=== PATIENT | female | born 1965 | race Caucasian/White ===

== ENCOUNTER → 2019-05-27 | Outpatient (CLI) | payer BC ==
--- NOTE | 2019-05-27 16:58 | Diagnostic Imaging Report ---
INDICATION: Chronic back pain. COMPARISON: Cervical spine MRI performed concurrently. TECHNIQUE: Multiplanar, multisequence MR imaging of the thoracic spine was performed without contrast. FINDINGS: Normal kyphosis of the thoracic spine. No spondylolisthesis. No fracture or marrow replacing process. No features of active facet synovitis. No epidural mass or fluid collection. Thoracic cord is normal in size and signal. Paravertebral musculature is normal. Visualized aspects of the upper abdomen and lungs are normal. IMPRESSION: Normal thoracic spine MRI. Dictated by: Dictated on workstation # [id number]
== END ==
LOC: RAD 13:56
PROVIDERS: ATTEND Nurse Practitioner Family
DX: G89.29 Other chronic pain (principal); M54.6 Pain in thoracic spine
CPT/HCPCS: 72146

== ENCOUNTER → 2019-05-27 | Outpatient (CLI) | payer BC ==
--- NOTE | 2019-05-27 15:57 | Diagnostic Imaging Report ---
PROCEDURE: MR imaging cervical spine without contrast. TECHNIQUE: Multiplanar, multisequence MR imaging of the cervical spine was performed without contrast. INDICATION: Chronic neck pain and mid spine pain. COMPARISON: No prior studies are available for comparison. FINDINGS: The curvature and alignment of the cervical spine is normal. Vertebral body marrow signal is normal. No geographic marrow lesion is seen. There is fairly normal height and signal intensity to the cervical intervertebral disc. Cervical cord does show normal homogeneous signal intensity and normal morphology. There does appear to be some cerebellar tonsillar ectopia present at the craniocervical junction. C2-3: Central canal and neural foramina are widely patent. C3-4: There appears to be some mild right neural foramina narrowing. Central canal and left neural foramen are patent. C4-5: No central canal or neural foraminal narrowing is seen. C5-6: No central canal or neural foraminal narrowing is seen. C6-7: No central canal or neural foraminal narrowing is seen. C7-T1: Unremarkable. IMPRESSION: 1. No central canal or neural foraminal stenosis is seen. 2. Cerebellar tonsillar ectopia. Dictated by: Dictated on workstation # [id number]
== END ==
LOC: RAD 13:45
PROVIDERS: ATTEND Nurse Practitioner Family
DX: G89.29 Other chronic pain (principal); M54.2 Cervicalgia; G93.89 Other specified disorders of brain
CPT/HCPCS: 72141

== ENCOUNTER → 2019-09-17 | Outpatient (CLI) | payer BC ==
--- NOTE | 2019-09-17 10:39 | Diagnostic Imaging Report ---
MRI RT LOWER EXT JOINT W/O TECHNIQUE: Multiplanar, multisequence MR imaging of the right knee was performed without contrast. COMPARISON: None available. INDICATION: Right knee pain. FINDINGS: MENISCI Medial meniscus: Complex macerated tearing throughout the body and posterior horn of the medial meniscus predominantly involves the free edge. The body of the medial meniscus is partially extruded in the medial gutter. Lateral meniscus: Normal. LIGAMENTS ACL: Intact. PCL: Intact. MCL: Intact. LCL: The lateral collateral ligamentous complex is intact. EXTENSOR MECHANISM The extensor mechanism is intact. CARTILAGE Medial compartment: Diffuse full-thickness articular cartilage loss throughout the weightbearing aspect of the medial compartment. Underlying subcortical cystic change and sclerosis is present indicative of grade IV chondromalacia. Lateral compartment: The lateral compartment articular cartilage is preserved without high-grade chondromalacia. Patellofemoral compartment: High-grade partial and full-thickness articular cartilage loss at the patellar apex and medial patellar facet. BONE No fracture, stress fracture or osteonecrosis. SOFT TISSUE No knee joint effusion. Moderate-sized Wiley's cyst measures approximately 5.5 cm in craniocaudal dimension and has no features of rupture. IMPRESSION: 1. Tricompartmental knee osteoarthritis is most advanced in the medial compartment as there is a broad area of full-thickness articular cartilage loss throughout the weightbearing aspect. 2. There is associated degenerative macerated tearing of the body and posterior horn of the medial meniscus. 3. Moderate size Wiley's cyst. Dictated by: Dictated on workstation # [id number]
== END ==
LOC: RAD 09:18
PROVIDERS: ATTEND Nurse Practitioner
DX: M23.221 Derangement of posterior horn of medial meniscus due to old tear or injury, right knee (principal); M71.21 Synovial cyst of popliteal space [Baker], right knee; M17.11 Unilateral primary osteoarthritis, right knee; M22.41 Chondromalacia patellae, right knee
CPT/HCPCS: 73721

== ENCOUNTER 2020-05-30 05:34 | Outpatient (RCR) | payer BC ==
[2020-05-25 12:04] VITALS: BP 119/66
[2020-05-25 12:27] LABS: BASOPHILS # (AUTO) 0.1 10^3/uL (0.0-0.1); BASOPHILS % (AUTO) 1 % (0-10); EOSINOPHILS # (AUTO) 0.1 10^3/uL (0.0-0.3); EOSINOPHILS % (AUTO) 1 % (0-10); HEMATOCRIT 44 % (35-52); HEMOGLOBIN 14.8 G/DL (11.5-16.0); LYMPHOCYTES # (AUTO) 2.7 X 10^3 (1.0-4.0); LYMPHOCYTES % (AUTO) 25 % (12-44); MEAN CORPUSCULAR HEMOGLOBIN 29 PG (25-34); MEAN CORPUSCULAR HGB CONC 34 G/DL (32-36); MEAN CORPUSCULAR VOLUME 87 FL (80-99); MEAN PLATELET VOLUME 8.8 FL (7.4-10.4); MONOCYTES # (AUTO) 0.6 X 10^3 (0.0-1.0); MONOCYTES % (AUTO) 6 % (0-12); NEUTROPHILS # (AUTO) 7.1 X 10^3 (1.8-7.8); NEUTROPHILS % (AUTO) 67 % (42-75); PLATELET COUNT 419 10^3/uL (130-400); WHITE BLOOD COUNT 10.6 10^3/uL (4.3-11.0)
[2020-05-25 12:32] LABS: BILIRUBIN,URINE NEGATIVE (NEGATIVE); CLARITY,URINE CLEAR; COLOR,URINE YELLOW; GLUCOSE, URINE (UA) NEGATIVE (NEGATIVE); KETONES,URINE NEGATIVE (NEGATIVE); LEUKOCYTE ESTERASE ,URINE NEGATIVE (NEGATIVE); NITRITE,URINE NEGATIVE (NEGATIVE); PH,URINE 6.5 (5-9); PROTEIN,URINE NEGATIVE (NEGATIVE)
[2020-05-25 12:39] LABS: BACTERIA,URINE NEGATIVE /HPF; SQUAMOUS EPITHELIAL CELL,UR RARE /HPF; WBC,URINE RARE /HPF
[2020-05-25 12:41] LABS: INR 0.9 (0.8-1.4); PROTHROMBIN TIME PATIENT 12.7 SEC (12.2-14.7)
[2020-05-25 12:48] LABS: ERYTHROCYTE SEDIMENTATION RATE 15 MM/HR (0-30)
[2020-05-25 12:49] LABS: ALANINE AMINOTRANSFERASE 13 U/L (0-55); ALBUMIN 4.3 GM/DL (3.2-4.5); ALKALINE PHOSPHATASE 85 U/L (40-136); BILIRUBIN,TOTAL 0.4 MG/DL (0.1-1.0); BUN/CREATININE RATIO 16; CALCIUM 9.6 MG/DL (8.5-10.1); CARBON DIOXIDE 21 MMOL/L (21-32); CHLORIDE 104 MMOL/L (98-107); CREATININE SERUM 0.68 MG/DL (0.60-1.30); GFR ESTIMATED > 60; GLUCOSE 93 MG/DL (70-105); SODIUM 138 MMOL/L (135-145); TOTAL PROTEIN 7.5 GM/DL (6.4-8.2)
--- NOTE | 2020-05-25 13:14 | Diagnostic Imaging Report ---
INDICATION: Preop. TIME OF EXAM: 12:43 p.m. COMPARISON: No prior studies are available for comparison. FINDINGS: The heart size is normal. Lungs do show some hyperinflation suggestive of COPD. No infiltrates are seen. There is no effusion or pneumothorax. IMPRESSION: No acute cardiopulmonary process is detected. Dictated by: Dictated on workstation # [id number]
[~2020-05-30] VITALS: Ht 165 cm; Wt 88.1 kg
[~2020-05-30 05:34] MED LIST: ACET-2267 PO; ACET-2715 PO; ALPR0.25 PO; CALC-921 PO; CYAN250010 PO; FEXO1TAB40 PO; HYDR-83 PO
== END 2020-05-30 10:15 | disposition home or self-care (01) ==
LOC: PREOP 05:34
PROVIDERS: ATTEND Orthopaedic Surgery
DX: Z01.810 Encounter for preprocedural cardiovascular examination (principal); Z01.811 Encounter for preprocedural respiratory examination; Z01.812 Encounter for preprocedural laboratory examination; M17.11 Unilateral primary osteoarthritis, right knee; R53.83 Other fatigue; Z20.828 Contact with and (suspected) exposure to other viral communicable diseases; Z11.2 Encounter for screening for other bacterial diseases
CPT/HCPCS: 36415; 71046; 80053; 81000; 85025; 85610; 85652; 86850; 86900; 86901; 87081; 87635

== ENCOUNTER 2020-06-01 06:15 | Inpatient (IN) | payer BC ==
--- NOTE | 2020-05-25 22:19 | HISTORY AND PHYSICAL ---
DATE OF SERVICE: DATE OF SURGERY AND SERVICE: 06/01/2020 This will be for inpatient admission on 06/01/2020 for right total knee arthroplasty. The patient will require regular inpatient admission for pain management, need for physical therapy and gait abnormalities. HISTORY OF PRESENT ILLNESS: The patient is a 54-year-old female with progressively worsening right knee pain. She has undergone treatment with injections as well as physical therapy and arthroscopy. She has known grade IV chondral changes in her medial and patellofemoral compartments. She reports progressive loss of function despite extensive conservative measures and because of this, it was elected to proceed with surgical intervention. REVIEW OF SYSTEMS: No chest pain, no shortness of breath, no dysuria. PAST MEDICAL HISTORY: Significant for cholecystitis. PAST SURGICAL HISTORY: Cholecystectomy, tubal ligation, breast reduction, right foot neuroma excision, oral surgery, lumpectomy and right knee arthroscopy. PRIMARY CARE PROVIDER: Dr. Lea. MEDICATIONS: Clindamycin, Sonoita, Advil, Celebrex, hydrocodone. ALLERGIES: No known drug allergies. SOCIAL HISTORY: The patient smokes one pack per day. Denies alcohol use. PHYSICAL EXAMINATION: GENERAL: The patient is well developed, well nourished, in no acute distress. HEENT: Normocephalic, atraumatic. Pupils are equal, round and reactive to light. Oropharynx is clear. NECK: Supple, no lymphadenopathy. LUNGS: Clear to auscultation bilaterally. HEART: Regular rate and rhythm. ABDOMEN: Soft, nontender, nondistended. EXTREMITIES: The right knee demonstrates a moderate effusion. She is tender along the medial joint line. She has pain medially with Ziggy's. Range of motion 0/2/130. No varus valgus laxity. Negative anterior and posterior drawer. The patient ambulates with an antalgic gait. IMPRESSION: Severe right knee osteoarthritis, unresponsive to conservative measures. PLAN: Right total knee arthroplasty. The risks, benefits, options, ramifications and recovery were discussed at length with the patient. She understands and wishes to proceed. Job ID: [id number] DocumentID: [id number] Dictated Date: 05/23/2020 09:42:04 Tissue Specialist Date: 05/23/2020 10:02:01 Dictated By: ATTILA PEÑA MD
[~2020-06-01] VITALS: Ht 165 cm; Wt 88.1 kg
[2020-06-01] VITALS (12 sets, daily range): BP systolic 104–146; BP diastolic 56–82
--- OUTSIDE RECORDS SUMMARY | 2020-06-01 06:19 | XMS REPORT | Clinical Summary ---
Author Author [facility] Organization [facility] Address Unknown Phone Unavailable Care Team Providers Care Carbon Coater Machine Operator Name Role Phone Wellington Raya MD PCP Unavailable Source Comments Some departments are not documenting in the electronic medical record. If you d o not see the information that you expected, contact Release of Information in [facility] [employer] Information Management department at [phone] for further assistan ce in locating additional records.[facility] Allergies Not on File Medications Not on file Active Problems Not on file Social History Date Tobacco Use Types Packs/Day Years Used Never Assessed Sex Assigned at Date Recorded Not on file Industry Job Start Date Occupation Not on file Not on file Not on file Travel End Travel History Travel Start No recent travel history available. Last Filed Vital Signs Not on file Plan of Treatment Health Maintenance Due Date Last Done Comments HIV SCREENING 1978 DTAP/TDAP VACCINES (1 - 1981 Tdap) HEPATITIS C SCREENING 1981 PHYSICAL (COMPREHENSIVE) 1981 EXAM CERVICAL CANCER SCREENING 1984 COLORECTAL CANCER 2013 SCREENING SHINGLES RECOMBINANT 2013 VACCINE (1 of 2) BREAST CANCER SCREENING 03/08/2016 03/08/2015 INFLUENZA VACCINE 08/18/2020 Results Not on filefrom Last 3 Months Insurance Type Payer Benefit Subscriber ID Effective Phone Address Plan / Dates Group PPO [place] xxxxxxxxxxxx 2009-P PREF CARE resent BLUE PPO BCBS BCBS [place] xxxxxxxxx 2010-P FED EMP resent PROGRAM [phone] Advance Directives 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
--- OUTSIDE RECORDS SUMMARY | 2020-06-01 06:19 | XMS REPORT | Encounter Summary ---
Author Author [facility] Organization [facility] Address Unknown Phone Unavailable Care Team Providers Care Theology Teacher Name Role Phone Marielle Lea PCP Reason for Referral * Diagnostic Imaging (Routine) Referred By Contact Referred To Contact Status Reason Specialty Diagnoses / Procedures Marielle Lea MD [address] [place] [address] Closed Diagnoses Encounter for special screening examination for neoplasm of breast(not mammogram) P rocdat MA Mammogram screening w CAD michelle bilat Reason for Visit * Diagnostic Imaging (Routine) Referred By Contact Referred To Contact Status Reason Specialty Diagnoses / Procedures Marielle Lea MD [address] [place] [address] Closed Diagnoses Encounter for special screening examination for neoplasm of breast(not mammogram) P rocdat MA Mammogram screening w CAD michelle bilat Encounter Details Care Team Description Date Type Department Marielle Lea MD [address] [place] [address] Encounter for special screening examinat ion for neoplasm of breast 09/03/2018 [facility] Encounter [facility] [address], [address] [place], [place] [address] Social History Date Tobacco Use Types Packs/Day Years Used Current Every Day Smoker Cigarettes 1 Smokeless Tobacco: Never Used Drinks/Week oz/Week Comments Alcohol Use No Sex Assigned at Date Recorded Not on file Industry Job Start Date Occupation Not on file Not on file Not on file Travel End Travel History Travel Start No recent travel history available. documented as of this encounter Medications at Time of Discharge Start Date End Date Medication Sig Dispensed Refills calcium carbonate (TUMS) Chew 1 tablet 0 200 mg calcium (500 mg) as directed. chewable tablet cycloSPORINE (RESTASIS) Administer 1 0 0.05 % ophthalmic Drop in both emulsion eyes 2 times daily. 12/03/2017 fexofenadine-pseudoephedr Take 1 Tablet 0 ine (FELICITY-D) 60-120 mg by mouth 2 per 12 hr tablet times daily. 05/05/2015 fluticasone (FLONASE) 50 Administer 2 0 mcg/actuation nasal spray Sprays in each nostril daily. ibuprofen (ADVIL,MOTRIN) 100 mg every 0 100 MG tablet 6 (six) hours as needed. 03/21/2018 08/28/2019 atorvastatin (LIPITOR) 20 Take 1 tablet 90 tablet 3 MG tablet (20 mg total) by mouth daily. documented as of this encounter Plan of Treatment Not on filedocumented as of this encounter Procedures Comments Procedure Name Priority Date/Time Associated Diag nosis MA MAMMOGRAM SCREENING W Routine 09/03/2018 Encou nter for special CAD MICHELLE BILAT 9:33 AM CDT screening examinati on for neoplasm of breast documented in this encounter Results * MA Mammogram screening w CAD michelle bilat (09/03/2018 9:33 AM CDT) Specimen Impressions Performed At [facility] Changes consistent with reduction mammo plasties in both breasts are benign. Routine mammogram in 1 year is recommen ded. Patient will receive a reminder letter. BI-RADS CATEGORY 2: Benign Finding(s) READING SITE: [facility] luis Thibodeaux M.D. Electronically Sig stiven: 09/03/2018 at 10:44:03 AM Your patient will receive the results o f this examination as outlined by the Mammography Quality Standards Act. Dagmar Anton Deirdre, [id number] 1965 1 Page 1li Narrative Performed At [facility] [id number] [place] [address], [address] [place] [address] Patient: Dagmar Anton Date of : 1965 Referring Physician: Marielle Lea Exam Date: 09/03/2018 Exam Procedure Performed: MA Mammogram heber villarreal w CAD michelle bilat - bilateral REASON FOR EXAM Patient is 53 years old and is seen for screening. The following views were obtained: bi lateral CC; bilateral MLO; bilateral CC MICHELLE; and bilateral MLO MICHELLE. IMAGE COMPARISON The present examination has been compar ed to prior imaging studies performed at [facility] on 014, and at [facility] on 04/12/2017. DIGITAL MAMMOGRAM CAD-analysis was used in the interpreta tion of this study. There are scattered areas of fibrogland ular density. There are changes consistent with reduc tion mammoplasties in both breasts. Post reduction changes are present. No sig nificant masses, calcifications or other abnormalities are seen. Procedure Note Interface, Rad Results In - 10/02/2018 2:34 PM [facility] [address], [address] [place] [address] Patient: Dagmar Anton Date of : 1965 Referring Physician: Marielle Lea Exam Date: 09/03/2018 Exam Procedure Performed: MA Mammogram screening w CAD michelle bilat - bilateral REASON FOR EXAM Patient is 53 years old and is seen for screening. The following views were obtained: bilateral CC; bilateral MLO; bilateral CC MICHELLE; and bilateral MLO MICHELLE. IMAGE COMPARISON The present examination has been compared to prior imaging studies performed at [facility] on 12/17/2013, and at [facility] on 04/12/2017. DIGITAL MAMMOGRAM CAD-analysis was used in the interpretation of this study. There are scattered areas of fibroglandular density. There are changes consistent with reduction mammoplasties in both breasts. Post reduction changes are present. No significant masses, calcifications or other abnormalities are seen. IMPRESSION IMPRESSION Changes consistent with reduction mammoplasties in both breasts are benign. Routine mammogram in 1 year is recommended. Patient will receive a reminder letter. BI-RADS CATEGORY 2: Benign Finding(s) READING SITE: [facility] Antoinette Thibodeaux M.D. Electronically Signed: 09/03/2018 at 10:44:03 AM Your patient will receive the results of this examination as outlined by the Mammography Quality Standards Act. Dagmar Anton, [id number] 1965 1 Page 1li Performing Organization Address City/State/Zipcode Ph one Number TELMA documented in this encounter Visit Diagnoses Diagnosis Encounter for special screening examina tion for neoplasm of breast(not mammogram) documented in this encounter
--- OUTSIDE RECORDS SUMMARY | 2020-06-01 06:19 | XMS REPORT | Clinical Summary ---
Author Author [facility] Organization [facility] Address Unknown Phone Unavailable Care Team Providers Care General Merchandise Manager Name Role Phone Marielle Lea PCP Allergies No Known Allergies Medications End Date Status Medication Sig Dispensed Refills Start Date Active cycloSPORINE (RESTASIS) Administer 1 0 0.05 % ophthalmic Drop in both emulsion eyes 2 times daily. Active fexofenadine-pseudoephedr Take 1 Tablet 0 11/18 ine (FELICITY-D) 60-120 mg by mouth 2 8 per 12 hr tablet times daily. Active fluticasone (FLONASE) 50 Administer 2 0 05/05 / mcg/actuation nasal spray Sprays in 5 each nostril daily. Active ibuprofen (ADVIL,MOTRIN) 100 mg every 0 100 MG tablet 6 (six) hours as needed. Active calcium carbonate (TUMS) Chew 1 tablet 0 200 mg calcium (500 mg) as directed. chewable tablet Active atorvastatin (LIPITOR) 20 TAKE 1 90 tablet 0 08/28/201 MG tablet TABLET(20 MG) 9 BY MOUTH DAILY Active Problems Problem Noted Date Tobacco use 08/15/2015 Gastroesophageal reflux disease without esophagitis 07/20/2015 De Quervain's tenosynovitis, left 08/05/2014 Anxiety 11/19/2012 Plantar fasciitis 01/20/2011 Left arm numbness Family History Medical History Relation Name Comments Cancer Father Hypertension Father Relation Name Status Comments Father Alive Mother Social History Date Tobacco Use Types Packs/Day Years Used Current Every Day Smoker Cigarettes 1 Smokeless Tobacco: Never Used Drinks/Week oz/Week Comments Alcohol Use No Sex Assigned at Date Recorded Not on file Industry Job Start Date Occupation Not on file Not on file Not on file Travel End Travel History Travel Start No recent travel history available. Last Filed Vital Signs Reading Time Taken Comments Vital Sign 117/83 03/07/2018 11:08 AM CDT Blood Pressure 72 03/07/2018 11:08 AM CDT reg Pulse - - Temperature - - Respiratory Rate - - Oxygen Saturation - - Inhaled Oxygen Concentration 94.8 kg (209 lb) 03/07/2018 11:08 AM CDT Weight 165.1 cm (5' 5") 03/07/2018 11:08 AM CDT Height 34.78 03/07/2018 11:08 AM CDT Body Mass Index Plan of Treatment Health Maintenance Due Date Last Done Comments Hepatitis C Screen 1965 Td # 1965 Tobacco Cessation 1965 Counseling # Pneumococcal Vaccine: 1969 Pediatrics (0 to 5 Years) and At-Risk Patients (6 to 64 Years) (1 of 1 - PPSV23) Cervical Cancer Screening 1984 via Pap Smear Colorectal Screening via 2013 Colonoscopy Zoster Vaccine# (1 of 2) 2013 Influenza Vaccine (#1) 2020 Mammogram Screening 08/31/2021 08/31/2019, 09/03/2018, 04/12/2017, Additional history exists Results Not on filefrom Last 3 Months Insurance Type Payer Benefit Subscriber ID Effective Phone Address Plan / Dates Group [facility] xxxxxxxxx 20 11- FEDERAL Present Dagmar Anton Personal/F Self 1965 [address] [place] [address] Dagmar Anton Personal/F Self 1965 [address] [place] [address] Advance Directives For more information, please contact: [phone] Patient Client Service Administrator Explanation Type Date Recorded Advance Directives and Living Will Power of Hanging Flags Decorator Health Care Directive
--- OUTSIDE RECORDS SUMMARY | 2020-06-01 06:19 | XMS REPORT | Encounter Summary ---
Author Author [facility] Organization [facility] Address Unknown Phone Unavailable Care Team Providers Care Clinical Operations Leader Name Role Phone Marielle Lea PCP Reason for Visit * Reason Comments Other Encounter Details Care Team Description Date Type Department Chase Rizzo MD [address] [place] [address] [phone] Other 08/28/2019 Refill [facility] [address] [place] [address] Social History Date Tobacco Use Types Packs/Day Years Used Current Every Day Smoker Cigarettes 1 Smokeless Tobacco: Never Used Drinks/Week oz/Week Comments Alcohol Use No Sex Assigned at Date Recorded Not on file Industry Job Start Date Occupation Not on file Not on file Not on file Travel End Travel History Travel Start No recent travel history available. documented as of this encounter Plan of Treatment Not on filedocumented as of this encounter Visit Diagnoses Not on filedocumented in this encounter
--- OUTSIDE RECORDS SUMMARY | 2020-06-01 06:19 | XMS REPORT | Encounter Summary ---
Author Author [facility] Organization [facility] Address Unknown Phone Unavailable Care Team Providers Care Deputy Grand Jury Name Role Phone Marielle Lea PCP Reason for Visit * Diagnostic Imaging (Routine) Referred By Contact Referred To Contact Status Reason Specialty Diagnoses / Procedures Marielle Lea MD [address] [place] [address] Closed Diagnoses Encounter for screening mammogram for breast cancer P rocedures MA Mammogram screening w CAD bilat MA Mammogram screening w CAD bilat Encounter Details Care Team Description Date Type Department Provider, Not In System Marielle Lea MD [address] [place] [address] Breast cancer screening by mammogram; Encounter for screening mammogram for breast cancer 08/31/2019 [facility] Encounter [facility] [id number] [place] [address], [address] [place] [address] Social History Date Tobacco Use Types Packs/Day [...] Date End Date Medication Sig Dispensed Refills 08/28/2019 atorvastatin (LIPITOR) 20 TAKE 1 90 tablet 0 MG tablet TABLET(20 MG) BY MOUTH DAILY calcium carbonate (TUMS) Chew 1 tablet 0 [...] MG tablet 6 (six) hours as needed. documented as of this encounter Plan of Treatment Not on filedocumented as of this encounter Procedures Comments Procedure Name Priority Date/Time Associated Diag nosis MA MAMMOGRAM SCREENING W Routine 08/31/2019 Encou nter for screening CAD MICHELLE BILAT 2:28 PM CDT mammogram for breas t cancer documented in this encounter Results * MA Mammogram screening w CAD bilat (08/31/2019 2:28 PM CDT) Specimen Impressions Performed At [facility] No mammographic evidence of malignancy. Routine mammogram in 1 year is recommen ded. Patient will receive a reminder letter. BI-RADS CATEGORY 1: Negative READING SITE: [facility] luis Thibodeaux M.D. Electronically Sig stiven: 08/31/2019 at 02:31:13 PM Your patient will receive the results o f this examination as outlined by the Mammography Quality Standards Act. Dagmar Anton, [id number] 1965 1 Page 1li Narrative Performed At [facility] [address], [address] [place] [address] Patient: Dagmar Anton Date of : 1965 Referring Physician: Marielle Lea Exam Date: 08/31/2019 Exam Procedure Performed: MA Mammogram scree phil w CAD michelle bilat - bilateral REASON FOR EXAM Patient is 54 years old and is seen for screening. The following views were obtained: bi lateral CC; bilateral MLO; bilateral CC MICHELLE; and bilateral MLO MICHELLE. IMAGE COMPARISON The present examination has been compar ed to prior imaging studies performed at [facility] on 014, and at [facility] on 04/12/2017 and 09/03/2018. DIGITAL MAMMOGRAM CAD-analysis was used in the interpreta tion of this study. There are scattered areas of fibrogland ular density. There are no suspicious masses, areas o f architectural distortion or malignant appearing calcifications identified. Procedure Note Interface, Rad Results In - 08/31/2019 2:[address] [facility] [address], [address] [place], [place] [id number] Patient: Dagmar Anton Date of : 1965 Referring Physician: Marielle Lea Exam Date: 08/31/2019 Exam Procedure Performed: MA Mammogram screening w CAD michelle bilat - bilateral REASON FOR EXAM Patient is 54 years old and is seen for screening. The following views were obtained: bilateral CC; bilateral MLO; bilateral CC MICHELLE; and bilateral MLO MICHELLE. IMAGE COMPARISON The present examination has been compared to prior imaging studies performed at [facility] on 12/17/2013, and at [facility] on 04/12/2017 and 09/03/2018. DIGITAL MAMMOGRAM CAD-analysis was used in the interpretation of this study. There are scattered areas of fibroglandular density. There are no suspicious masses, areas of architectural distortion or malignant appearing calcifications identified. IMPRESSION IMPRESSION No mammographic evidence of malignancy. Routine mammogram in 1 year is recommended. Patient will receive a reminder letter. BI-RADS CATEGORY 1: Negative READING SITE: [facility] Antoinette Thibodeaux M.D. Electronically Signed: 08/31/2019 at 02:31:13 PM Your patient will receive the results of this examination as outlined by the Mammography Quality Standards Act. Dagmar Anton Deirdre, [id number] 1965 1 Page 1li Performing Organization Address City/State/Zipcode Ph one Number TELMA documented in this encounter Visit Diagnoses Diagnosis Breast cancer screening by mammogram Encounter for screening mammogram for b reast cancer documented in this encounter
--- OUTSIDE RECORDS SUMMARY | 2020-06-01 06:19 | XMS REPORT | Encounter Summary ---
Author Author [facility] Organization [facility] Address Unknown Phone Unavailable Care Team Providers Care Commercial Property Manager Name Role Phone Venu Marielle PCP Encounter Details Care Team Description Date Type Department Provider, Not In System Breast cancer screening by mammogram (Pr imary Dx) 08/28/2019 [facility] [address] [place] [address] Social History Date Tobacco Use Types Packs/Day [...] filedocumented as of this encounter Visit Diagnoses Diagnosis Breast cancer screening by mammogram documented in this encounter
--- OUTSIDE RECORDS SUMMARY | 2020-06-01 06:20 | XMS REPORT | Encounter Summary ---
Author Author [facility] Organization [facility] Address Unknown Phone Unavailable Care Team Providers Care Water Quality Specialist Name Role Phone Marielle Lea PCP Encounter Details Care Team Description Date Type Department Lachelle Reed MD [address] [facility] [address] [place] [address] [phone] 12/12/2012 PracPart Note [facility] Neurol ogy [address] [place] [address] Social History Date Tobacco Use Types Packs/Day Years Used Never Assessed Sex Assigned at Date Recorded Not on file Industry Job Start Date Occupation Not on file Not on file Not on file Travel End Travel History Travel Start No recent travel history available. documented as of this encounter Progress Notes * Lachelle Reed MD - 12/12/2012 2:04 PM GLASS DEPOSITION TENDER . : 02:04pm .T: MRI brain w/ wo contrast . .PV: CMB INVALID LINK:[email or web address]|[id number]\\[email or web address] MRI stable, no new lesions Indexed by Kirk Cooley date: Wednesday, December 12, 2012 at 2:17:23 PM # SIGNED BY Lachelle Reed MD (CMB) 12/16/2012 09:01AM S DEPOSITION TENDER documented in this encounter Plan of Treatment Not on filedocumented as of this encounter Visit Diagnoses Not on filedocumented in this encounter"
--- OUTSIDE RECORDS SUMMARY | 2020-06-01 06:20 | XMS REPORT | Encounter Summary ---
Author Author [facility] Organization [facility] Address Unknown Phone Unavailable Care Team Providers Care Waterproof Coating Machine Tender Name Role Phone Marielle Lea PCP Encounter Details Care Team Description Date Type Department Encounter for consultation 04/12/2017 Imaging [facility] Virtual Revenu e Appointment Location Social History Date Tobacco Use Types Packs/Day [...] Procedure Name Priority Date/Time Associated Diag nosis IVON OUTSIDE IMAGES FOR Routine 04/12/2017 Encounte r for PACS 10:18 AM CDT consultation documented in this encounter Results * IVON Outside images for PACS (04/12/2017 10:18 AM CDT) Specimen Performing Organization Address City/State/Zipcode Ph one Number TELMA documented in this encounter Visit Diagnoses Diagnosis Encounter for consultation documented in this encounter
--- OUTSIDE RECORDS SUMMARY | 2020-06-01 06:20 | XMS REPORT | Encounter Summary ---
Author Author [facility] Organization [facility] Address Unknown Phone Unavailable Care Team Providers Care Skid Worker Name Role Phone Marielle Lea PCP Encounter Details Care Team Description Date Type Department Encounter for consultation 04/12/2017 Imaging [facility] Virtual Revenu e Appointment Location Social [...] FOR Routine 04/12/2017 Encounte r for PACS 10:19 AM CDT consultation documented in this encounter Results * IVON Outside images for PACS (04/12/2017 10:19 AM CDT) Specimen Performing Organization Address City/State/Zipcode Ph one Number TELMA documented in this encounter Visit Diagnoses Diagnosis Encounter for consultation documented in this encounter
--- OUTSIDE RECORDS SUMMARY | 2020-06-01 06:20 | XMS REPORT | Encounter Summary ---
Author Author [facility] Organization [facility] Address Unknown Phone Unavailable Care Team Providers Care Roll Contour Grinder Name Role Phone Marielle Lea PCP Reason for Referral * Diagnostic Imaging (Routine) Referred By Contact Referred To Contact Status Reason Specialty Diagnoses / Procedures Marielle Lea MD [address] [place] [address] Closed Diagnoses Visit for screening mammogram P rocedures MA Mammogram screening w CAD michelle bilat Reason for Visit * Diagnostic Imaging (Routine) Referred By Contact Referred To Contact Status Reason Specialty Diagnoses / Procedures Marielle Lea MD [address] [place] [address] Closed Diagnoses Visit for screening mammogram P rocedures MA Mammogram screening w CAD michelle bilat Encounter Details Care Team Description Date Type Department Marielle Lea MD [address] [place] [address] Visit for screening mammogram 04/12/2017 [facility] [id number] [place] [address], [address] [place] [address] Social History Date Tobacco Use Types Packs/Day Years Used Never Assessed Sex Assigned at Date Recorded Not on file Industry Job Start Date Occupation Not on file Not on file Not on file Travel End Travel History Travel Start No recent travel history available. documented as of this encounter Medications at Time of Discharge Start Date End Date Medication Sig Dispensed Refills 05/05/2015 fluticasone (FLONASE) 50 Administer 2 0 mcg/actuation nasal spray Sprays in each nostril daily. 07/20/2015 03/07/2018 esomeprazole (NEXIUM) 40 40 mg. 0 MG capsule documented as of this encounter Plan of Treatment Not on filedocumented as of this encounter Procedures Comments Procedure Name Priority Date/Time Associated Diag nosis MA MAMMOGRAM SCREENING W Routine 04/12/2017 Visit for screening CAD MICHELLE BILAT 10:17 AM CDT mammogram documented in this encounter Results * MA Mammogram screening w CAD michelle bilat (04/12/2017 10:17 AM CDT) Specimen Impressions Performed At [facility] No mammographic evidence of malignancy. Routine mammogram in 1 year is recommen ded. Patient will receive a reminder letter. BI-RADS CATEGORY 1: Negative READING SITE: [facility] Ashley Sampson MD Electronically Signed: 04/12/2017 at 05:46:00 PM Your patient will receive the results o f this examination as outlined by the Mammography Quality Standards Act. Dagmar Anton, [id number] 1965 1 Page 1li Narrative Performed At [facility] [address], [address] [place] [address] Patient: Dagmar Anton Date of : 1965 Referring Physician: Marielle Lea Exam Date: 04/12/2017 Exam Procedure Performed: MA Mammogram scree phil w CAD michelle bilat - bilateral REASON FOR EXAM Patient is 51 years old and is seen for screening. The following views were obtained: bi lateral CC; bilateral MLO; bilateral CC MICHELLE; and bilateral MLO MICHELLE. IMAGE COMPARISON The present examination has been compar ed to prior imaging studies performed on 03/01/2011 and 12/17/2013. DIGITAL MAMMOGRAM CAD-analysis was used in the interpreta tion of this study. There are scattered areas of fibrogland ular density. There are no suspicious masses, areas o f architectural distortion or malignant appearing calcifications identified. Procedure Note Interface, Rad Results In - 04/12/2017 5:49 PM [facility] Breast [facility] [address], [address] [place], [place] [address] Patient: Dagmar Anton Date of : 1965 Referring Physician: Marielle Lea Exam Date: 04/12/2017 Exam Procedure Performed: MA Mammogram screening w CAD michelle bilat - bilateral REASON FOR EXAM Patient is 51 years old and is seen for screening. The following views were obtained: bilateral CC; bilateral MLO; bilateral CC MICHELLE; and bilateral MLO MICHELLE. IMAGE COMPARISON The present examination has been compared to prior imaging studies performed on 03/01/2011 and 12/17/2013. DIGITAL MAMMOGRAM CAD-analysis was used in the interpretation of this study. There are scattered areas of fibroglandular density. There are no suspicious masses, areas of architectural distortion or malignant appearing calcifications identified. IMPRESSION IMPRESSION No mammographic evidence of malignancy. Routine mammogram in 1 year is recommended. Patient will receive a reminder letter. BI-RADS CATEGORY 1: Negative READING SITE: [facility] Ashley Sampson MD Electronically Signed: 04/12/2017 at 05:46:00 PM Your patient will receive the results of this examination as outlined by the Mammography Quality Standards Act. Dagmar Anton, [id number] 1965 1 Page 1li Performing Organization Address City/State/Zipcode Ph one Number TELMA documented in this encounter Visit Diagnoses Diagnosis Visit for screening mammogram documented in this encounter
--- OUTSIDE RECORDS SUMMARY | 2020-06-01 06:20 | XMS REPORT | Encounter Summary ---
Author Author [facility] Organization [facility] Address Unknown Phone Unavailable Care Team Providers Care Customer Service Advocate Name Role Phone Marielle Lea PCP Encounter Details Care Team Description Date Type Department Lachelle Reed MD [address] [place] [address] [phone] 12/16/2012 PracPart Note [facility] Neurol ogy [address] [place] [address] Social History Date Tobacco Use Types Packs/Day Years Used Never Assessed Sex Assigned at Date Recorded Not on file Industry Job Start Date Occupation Not on file Not on file Not on file Travel End Travel History Travel Start No recent travel history available. documented as of this encounter Progress Notes * Lachelle Reed MD - 12/16/2012 9:01 AM ASSURANCE ANALYST . :09:01AM .T:Call from patient From: Lachelle Reed (TAYOLR) Originated by: Lachelle Reed) S ent: 12/16/2012 at 09:01AM To: Yanely Colbert () Type: CHART Priority: 3 Subject: Call from patient Original Message: From: ST To: CMB Subject: Call from patient Priority: 3 Date: 12/16/2012 Nurse Note: 12/16/12 Providers: : Physician Response: Agree, no new lesions, old scar from initial problems Please call for problems prior to the next appt Thanks taylor 12-16-12 12/16/12 3:55pm I spoke with Dagmar and relayed the above response. st Reason for Call: Next Visit: None scheduled at this time - This 47 year old female reports by harpal ne she wanted to know her MRI results. I told her it was read as no changes but would verify this with you. Please advise. Thanks! Yanely t Call this patient at Home yes Other Contact Name and Number 10/21/12 Wellington Raya MD [address] [place] [id number] RE: Dagmar Anton : [address] Raya: I saw your patient Dagmar Anton, date of 61 today in neurological follow up. The following medication was reported to me by the patient and may assist you: None The patient's vital signs taken today in my office are as follows: Bp: 136/78, Right Arm, Pulse: 75 Weight: 187 lbs Mrs. Anton has been doing well. She was last seen in March 2010 for a followup after her episode of a single demyelinating event with right hemiparesis in Jun. She has not had any interval neurologic symptoms. 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 This is been very disabling but it is now tolerable. She recently completed some injections and a prednisone taper for the foot. She denies any vision changes other than presbyopia changes. No vision loss or d iplopia. No optic neuritis. She denies any facial numbness or droop. She denies Lhermitte's phenomenon. Occasionally she has to be cognizant of swallowing. She denies any trouble with her memory. She reports that her mood has several stress ors. There is no weakness in the extremities. She has bladder stress incontinenc e. No bowel issues. No trouble with walking. No muscle spasms. No prominent fati dash. Review of systems is positive for weight gain since she remarried and sinus symp toms. The remainder is negative and is documented in the electronic medical [address]. One family history her mother has been diagnosed with Alzheimer's which is a dvancing rather quickly. Her social history is now changed as she remarried. Physical examination: In general she is a well-developed, well-nourished, very p leasant female in no acute distress. Fundi: Disc without edema or pallor bilater ally. Cranial nerves: Pupils equally round and reactive to light, extraocular mo vements are full without nystagmus, face symmetric, facial sensation intact to l ight touch, tongue midline, palate elevates bilaterally, shoulder shrug is equal . Motor: Strength is 5/5 throughout with normal tone and no pronator drift. Sens ation is intact to light touch throughout. Vibratory sense is intact at the grea t toes bilaterally. DTRs: 2/4 throughout. Plantar responses are downgoing. Coord ination: No dysmetria on finger to nose or [id number]. Gait: Normal, including tandem walking. 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 Followup MRIs over the years have not revealed development of additional white matter lesions or evidence of demyelination. It has been quite sometime since she has had an MRI. Despite the fact that she has neurologically remained asymptomatic, I have recommended followup MRI of the brain with and without contrast to review white matter lesion burden and for development of additional lesions. She overall is o therwise doing quite well. I will discuss with her the MRI results by phone when I have had opportunity to review. I plan to see her back in the next couple of years, sooner if additional problems should arise in the meantime. Over 50% of t his patient 30 minute visit was spent in counseling and discussion of her origin al symptomatology, diagnosis, and the rationale for repeat testing. I appreciate the opportunity to participate inthis delightful patient's care. Pl ease do not hesitate to contact me if there are questions or concerns. documented in this encounter Plan of Treatment Not on filedocumented as of this encounter Visit Diagnoses Not on filedocumented in this encounter
--- OUTSIDE RECORDS SUMMARY | 2020-06-01 06:20 | XMS REPORT | Encounter Summary ---
Author Author [facility] Organization [facility] Address Unknown Phone Unavailable Care Team Providers Care Collar Pointer Name Role Phone Marielle Lea PCP Encounter Details Care Team Description Date Type Department [facility], Historical 12/12/2012 PracPart Note [facility] Social History Date Tobacco Use Types Packs/Day Years Used Never Assessed Sex Assigned at Date Recorded Not on file Industry Job Start Date Occupation Not on file Not on file Not on file Travel End Travel History Travel Start No recent travel history available. documented as of this encounter Progress Notes * [facility], Historical - 12/12/2012 1:13 PM ELECTRICIAN APPRENTICE . : 01:13pm .T: [facility] file [place]afne .PV: CMB # SIGNED BY Lachelle Reed MD (CMB) 12/16/2012 10:51AM documented in this encounter Plan of Treatment Not on filedocumented as of this encounter Visit Diagnoses Not on filedocumented in this encounter
--- OUTSIDE RECORDS SUMMARY | 2020-06-01 06:20 | XMS REPORT | Encounter Summary ---
Author Author [facility] Organization [facility] Address Unknown Phone Unavailable Care Team Providers Care Insulation Helper Name Role Phone Marielle Lea PCP Encounter Details Care Team Description Date Type Department Chase Rizzo MD [address] [place] [address] [phone] 02/25/2018 Documentation [facility] [address] [place] [address] Social History Date Tobacco Use Types Packs/Day [...]
--- OUTSIDE RECORDS SUMMARY | 2020-06-01 06:20 | XMS REPORT | Encounter Summary ---
Author Author [facility] Organization [facility] Address Unknown Phone Unavailable Care Team Providers Care Surgical Nurse Practitioner Name Role Phone Marielle Lea PCP Encounter Details Care Team Description Date Type Department Encounter for consultation 04/12/2017 Imaging [facility] Virtual Revenu e Appointment Location Social History [...] FOR Routine 04/12/2017 Encounte r for PACS 11:26 AM CDT consultation documented in this encounter Results * IVON Outside images for PACS (04/12/2017 11:26 AM CDT) Specimen Performing Organization Address City/State/Zipcode Ph one Number TELMA documented in this encounter Visit Diagnoses Diagnosis Encounter for consultation documented in this encounter
--- OUTSIDE RECORDS SUMMARY | 2020-06-01 06:20 | XMS REPORT | Encounter Summary ---
Author Author [facility] Organization [facility] Address Unknown Phone Unavailable Care Team Providers Care Research Software Engineer Name Role Phone Marielle Lea PCP Reason for Visit * Reason Comments Cardiology test results echo, stress echo Encounter Details Care Team Description Date Type Department Ayanna Baker RN Cardiology test results (echo, stress ec ho) 04/24/2018 Telephone [facility] [address] [place] [address] Social History Date Tobacco Use Types Packs/Day Years Used Current Every Day Smoker Cigarettes 1 Smokeless Tobacco: Never Used Drinks/Week oz/Week Comments Alcohol Use No Sex Assigned at Date Recorded Not on file Industry Job Start Date Occupation Not on file Not on file Not on file Travel End Travel History Travel Start No recent travel history available. documented as of this encounter Miscellaneous Notes * Telephone Encounter - Ayanna Baker RN - 04/24/2018 11:27 AM CDT ----- Message from Chase Rizzo MD sent at 04/22/2018 1:27 PM CDT ----- Echo and stress echo are reassuring. Good news. No new recs. DGS (echo, stress echo) 04/24/18 Call to pt's listed home number & was able to speak with her directly. Reviewed results, & recs as per DGS Pt voiced understanding Letter created & sent to PCP documented in this encounter Plan of Treatment Not on filedocumented as of this encounter Visit Diagnoses Not on filedocumented in this encounter
--- OUTSIDE RECORDS SUMMARY | 2020-06-01 06:20 | XMS REPORT | Encounter Summary ---
Author Author [facility] Organization [facility] Address Unknown Phone Unavailable Care Team Providers Care Nail Kegger Name Role Phone Marielle Lea PCP Encounter Details Care Team Description Date Type Department Encounter for consultation 04/12/2017 Imaging [facility] Virtual Revenu e Appointment Location Social [...] Procedure Name Priority Date/Time Associated Diag nosis US OUTSIDE IMAGES FOR Routine 04/12/2017 Encounte r for PACS 10:32 AM CDT consultation documented in this encounter Results * US Outside images for PACS (04/12/2017 10:32 AM CDT) Specimen Performing Organization Address City/State/Zipcode Ph one Number TELMA documented in this encounter Visit Diagnoses Diagnosis Encounter for consultation documented in this encounter
--- OUTSIDE RECORDS SUMMARY | 2020-06-01 06:20 | XMS REPORT | Encounter Summary ---
Author Author [facility] Organization [facility] Address Unknown Phone Unavailable Care Team Providers Care Outreach Associate Name Role Phone Marielle Lea PCP Encounter Details Care Team Description Date Type Department Yamini Burkett RN 03/05/2018 Abstract [facility] [address] [place] [address] Social History Date Tobacco Use Types Packs/Day [...] Procedure Name Priority Date/Time Associated Diag nosis LIPID PANEL Routine 03/04/2018 COMPREHENSIVE METABOLIC Routine 03/04/2018 PANEL CBC AND DIFF (MANUAL DIFF Routine 03/04/2018 IF NECESSARY) documented in this encounter Results * Comprehensive Metabolic Panel (03/04/2018) Alk Phos Total 81 Albumin Serum 4.1 Calcium 9.1 mg/dL Glucose 101 mg/dL Blood Urea 12 mg/dL Nitrogen Protein Total 7.1 g/dL Serum Bilirubin Total 0.3 mg/dL Aspartate 15 U/L Aminotransferas e Potassium 4.1 mmol/L Sodium 138 mmol/L Chloride 96 mmol/L Creatinine 0.6 mg/dL Alanine 16 U/L Aminotransferas e Carbon Dioxide 22 mmol/L BUN/Creatinine Ratio Globulin, Total A/G Ratio eGFR If >60 NonAfricn Am eGFR If Africn >60 Am Anion Gap 20 mmol/L Osmolality Serum Ionized Calcium Specimen Blood * CBC and Diff (manual diff if necessary) (03/04/2018) RBC 4.94 Hematology Comments WBC 9.8 Hemoglobin 14.3 g/dL Hematocrit 43 % MCV 87.2 fL MCH 28.9 pg MCHC 33 g/dL % Neutrophils 56 % % Imm Grans %Lymphocytes 34 % %Monocytes 8 % %Eosinophils 2 % %Basophils 1 % Platelet Count 366 K/L # Granulocytes Immature Grans (Abs) Neutrophils 5.45 Absolute # Lymphocytes 3.27 /L # Monocytes 0.74 /L # Eosinophils 0.19 /L # Basophils 0.10 /L Nucleated RBCs /100 RDW 12.5 % Specimen Blood * Lipid Panel (03/04/2018) Triglycerides 143 mg/dL HDL Cholesterol 50 mg/dL LDL Cholesterol 95 mg/dL Cholesterol/HDL Ratio LDL INTERPRETATION Non-HDL 124 Cholesterol Cholesterol 174 Specimen Blood documented in this encounter Visit Diagnoses Diagnosis Left arm numbness Disturbance of skin sensation documented in this encounter
--- OUTSIDE RECORDS SUMMARY | 2020-06-01 06:20 | XMS REPORT | Encounter Summary ---
Author Author [facility] Organization [facility] Address Unknown Phone Unavailable Care Team Providers Care Pretzel Twister Name Role Phone Marielle Lea PCP Reason for Referral * Diagnostic Imaging (Routine) Referred By Contact Referred To Contact Status Reason Specialty Diagnoses / Procedures Marielle Lea MD [address] [place] [address] Closed Diagnoses Encounter for special screening examination for neoplasm of breast(not mammogram) P rocedures MA Mammogram screening w CAD michelle bilat Encounter Details Care Team Description Date Type Department Marielle Lea MD [address] [place] [address] Encounter for special screening examinat ion for neoplasm of breast (Primary Dx) 09/02/2018 Transcribe [facility] [address], [address] [place] [address] Social History Date Tobacco Use Types Packs/Day [...] Not on filedocumented as of this encounter Results * MA Mammogram screening w CAD michelle bilat (09/03/2018 9:33 AM CDT) Specimen Impressions Performed At [facility] Changes consistent with reduction mammo plasties in both breasts are benign. Routine mammogram in 1 year is recommen ded. Patient will receive a reminder letter. BI-RADS CATEGORY 2: Benign Finding(s) READING SITE: [facility] luis Thibodeaux M.D. Electronically Sig stiven: 09/03/2018 at 10:44:03 AM Your patient will receive the results o f this examination as outlined by the Mammography Quality Standards Act. Dagmar Anton, [id number] 1965 1 Page 1li Narrative Performed At [facility] [address], [address] [place] [address] Patient: Dagmar Anton Date of : 1965 Referring Physician: Marielle Lea Exam Date: 09/03/2018 Exam Procedure Performed: MA Mammogram scree phil w CAD michelle bilat - bilateral REASON FOR EXAM Patient is 53 years old and is seen for screening. The following views were obtained: bi lateral CC; bilateral MLO; bilateral CC MICHELLE; and bilateral MLO MICHELLE. IMAGE COMPARISON The present examination has been compar ed to prior imaging studies performed at [facility] on , and at [facility] on 04/12/2017. DIGITAL MAMMOGRAM CAD-analysis was used in the interpreta tion of this study. There are scattered areas of fibrogland ular density. There are changes consistent with reduc tion mammoplasties in both breasts. Post reduction changes are present. No sig nificant masses, calcifications or other abnormalities are seen. Procedure Note Interface, Rad Results In - 10/02/2018 2:34 PM [employer] [employer] [facility] [address], [address] [place] [address] Patient: Dagmar Anton Date of [...] compared to prior imaging studies performed at [facility] [place] on 12/17/2013, and at [facility] on 04/12/2017. DIGITAL MAMMOGRAM CAD-analysis was used [...] BI-RADS CATEGORY 2: Benign Finding(s) READING SITE: [facility] Antoinette Thibodeaux M.D. Electronically Signed: 09/03/2018 at 10:44:03 AM Your patient will receive the results of this examination as outlined by the Mammography Quality Standards Act. Dagmar Anton, [id number] 1965 1 Page 1li Performing Organization Address City/State/Zipcode Ph one Number TELMA documented in this encounter Visit Diagnoses Diagnosis Encounter for special screening examina tion for neoplasm of breast(not mammogram) documented in this encounter
--- OUTSIDE RECORDS SUMMARY | 2020-06-01 06:20 | XMS REPORT | Encounter Summary ---
Author Author [facility] Organization [facility] Address Unknown Phone Unavailable Care Team Providers Care Mixer And Blender Name Role Phone Kassy Leaa PCP Reason for Referral * Diagnostic Imaging (Routine) Referred By Contact Referred To Contact Status Reason Specialty Diagnoses / Procedures Parris Duvall MD [address] [facility] [address] [place] [address] [facility] C[facility] Ultrasound [address] [place] [address] Closed Cardiology Diagnoses Palpitations Tobacco use Chest pain, unspecified type P rocedures Echo Complete with Doppler and Color Flow * Diagnostic Imaging (Routine) Referred By Contact Referred To Contact Status Reason Specialty Diagnoses / Procedures Parris Duvall MD [address] [facility] [address] [place] [address] [facility] Cv Ultrasound [address] [place] [address] Closed Cardiology Diagnoses Palpitations Tobacco use Chest pain, unspecified type P rocedures Echo Stress Exercise with Doppler and Color Flow if Necessary * Diagnostic Imaging (Routine) Referred By Contact Referred To Contact Status Reason Specialty Diagnoses / Procedures Parris Duvall MD [address] [facility] [address] [place] [address] Closed Diagnoses Palpitations P rocedures Electrocardiogram (ECG) Reason for Visit * Reason Comments Palpitations Encounter Details Care Team Description Date Type Department Parris Duvall MD [address] [place] [address] [place] [address] [phone] Palpitations (Primary Dx); Tobacco use; Chest pain, unspecified type; Abnormal EKG 03/07/2018 Initial consult [facility] [address] [place] [address] Social History Date Tobacco Use Types Packs/Day Years Used Current Every Day Smoker Cigarettes 1 Smokeless Tobacco: Never Used Drinks/Week oz/Week Comments Alcohol Use No Sex Assigned at Date Recorded Not on file Industry Job Start Date Occupation Not on file Not on file Not on file Travel End Travel History Travel Start No recent travel history available. documented as of this encounter Last Filed Vital Signs Reading Time Taken [...] 03/07/2018 11:08 AM CDT Body Mass Index documented in this encounter Patient Instructions * Patient Instructions* Jon Swift RN - 03/07/2018 11:10 AM CDT Call nurse line with any questions/concerns at [phone]. For scheduling issues/changes call [phone]. Get Stress Echo Test and Echocardiogram. (A nurse will call you with the results and the doctors recommendations). Continue working towards smoking cessation. Integrate 20-30 minutes of exercise each day. Follow up based upon your test results. documented in this encounter Progress Notes * Parris Duvall MD - 03/07/2018 11:10 AM CDT [facility] [place] Appointment Date: 03/07/2018 Marielle Lea MD [address] [place] [phone] RE: Yuval Anton : 1965 Visit provider: Parris Duvall MD Dear Marielle Lea MD, I had the pleasure of seeing Yuval Anton in the office today. She is a(n) 52 y.o. female and presents with the following chief complaint(s): Palpitations HPI: Thank you for asking me to see Yuval Anton as a new patient in cardiovascular consultation regarding several years' worth of palpitations and chest discomfor t. Her primary risk factor for cardiovascular disease is smoking, which started after high school and continues today. She describes palpitations for the last several years that may occur monthly or perhaps every other month. There are random in nature and typically last 30 sec onds in duration. She describes them as both a flip-flop and a fast sensation. She is without symptoms of hemodynamic compromise during her palpitations. She is certainly without angina with palpitations. Over the years they have not in creased in frequency or severity. She describes a myriad of GI and upper chest discomfort. It is hard to know if this represents angina or perhaps reflux symptoms. She reports having a hiatal hernia and epigastric discomfort and indigestion symptoms. Occasionally, she wi ll have a chest pressure sensation that will last seconds. This occurs monthly and also occurs in a random pattern. It is not associated with arm or back pain , diaphoresis or dyspnea. The other day, she describes some gum pain with some indigestion sensation in her chest. At baseline, she leads a very sedentary lif estyle and does relatively little physical activity. She has been screened in t he past for obstructive sleep apnea and does not have this disease. His father had a PCI at age 80. In 2000, she was transferred to [facility] for concerns about a lesio n in her brain. It was unclear whether this was multiple sclerosis or perhaps a glioma. In the end, she did not require a biopsy. There were two small focal scars in the left side of her brain, as she points to, without any residual neur ologic deficit. She has not followed up with Dr. Reed as she was supposed t o in the past. Reviewing labs from earlier this week, her CBC is normal, LDL 95 , HDL 50, triglycerides 143, total cholesterol 174. CMP is unremarkable. The c reatinine is 0.6. She describes undergoing a CardioScan in [place] and belie ves that the results were fine and nothing to worry about that, though she does not know the actual score. Patient Active Problem List Diagnosis SNOMED CT(R) Anxiety ANXIETY De Quervain's tenosynovitis, left TENOSYNOVITIS OF LEFT RADIAL STYLOID Gastroesophageal reflux disease without esophagitis GASTROESOPHAGEAL REFLUX DISEASE WITHOUT ESOPHAGITIS Plantar fasciitis PLANTAR FASCIITIS Tobacco use TOBACCO USE AND EXPOSURE - FINDING Left arm numbness NUMBNESS OF UPPER LIMB Past Medical History: Diagnosis Date Anxiety De Quervain's tenosynovitis, left 07/2014 Gastroesophageal reflux disease without esophagitis Plantar fasciitis 01/2011 Tobacco use 07/2015 History reviewed. No pertinent surgical history. Final Medications: Current Outpatient Prescriptions Medication Sig Dispense Refill calcium carbonate (TUMS) 200 mg calcium (500 mg) chewable tablet Chew 1 tabl et as directed. cycloSPORINE (RESTASIS) 0.05 % ophthalmic emulsion Administer 1 Drop in both eyes 2 times daily. fexofenadine-pseudoephedrine (FELICITY-D) 60-120 mg per 12 hr tablet Take 1 T ablet by mouth 2 times daily. fluticasone (FLONASE) 50 mcg/actuation nasal spray Administer 2 Sprays in ea ch nostril daily. ibuprofen (ADVIL,MOTRIN) 100 MG tablet 100 mg every 6 (six) hours as needed. No current facility-administered medications for this visit. No Known Allergies Family History Problem Relation Age of Onset Hypertension Father Cancer Father Social History: Social History Substance Use Topics Smoking status: Current Every Day Smoker Packs/day: 1.00 Types: Cigarettes Smokeless tobacco: Never Used Alcohol use No Review of Systems Constitution: Positive for malaise/fatigue. Negative for fever and night sweats. HENT: Negative for nosebleeds. Eyes: Negative. Cardiovascular: Positive for irregular heartbeat and palpitations. Negative for chest pain, claudication, cyanosis, dyspnea on exertion, leg swelling, near-sync ope, orthopnea and syncope. Respiratory: Negative for cough, hemoptysis, shortness of breath, sleep disturba nces due to breathing, snoring and wheezing. Endocrine: Negative for cold intolerance and polydipsia. Hematologic/Lymphatic: Bruises/bleeds easily. Skin: Negative for rash. Musculoskeletal: Negative for joint pain and myalgias. Gastrointestinal: Negative for dysphagia, hematochezia, nausea and vomiting. Genitourinary: Negative for hematuria. Neurological: Positive for numbness and paresthesias. Negative for brief paralys is, disturbances in coordination, excessive daytime sleepiness, dizziness, focal weakness, light-headedness and loss of balance. Psychiatric/Behavioral: Negative for depression. All other systems reviewed and are negative. Vital Signs 03/07/18 1108 BP: 117/83 Pulse: 72 Weight: 94.8 kg (209 lb) Height: 1.651 m (5' 5") BMI: Body mass index is 34.78 kg/m. Physical Exam BP 117/83 | Pulse 72 Comment: reg | Ht 1.651 m (5' 5") | Wt 94.8 kg (209 lb) | BMI 34.78 kg/m Current weight Weight: 94.8 kg (209 lb) General: Alert, cooperative and in no distress Constitutional Healthy appearing. Neck Veins Normal Eyes No sclera icterus. Carotids No bruits. Carotid pulses 2 + (right and left) Lungs Clear to auscultation bilaterally. Heart Normal rate, regular rhythm, normal S1, S2, no murmurs, rubs, clicks o r gallops. Abdomen Soft and non-tender. . Extremities 0 + pitting edema Extremities Warm Skin No obvious rash Pulses 2 + dorsalis pedis (right and left). Speech Fluent Mood Normal Gait Normal Cholesterol (no units) Date Value 03/04/2018 174 HDL Cholesterol (mg/dL) Date Value 03/04/2018 50 Triglycerides (mg/dL) Date Value 03/04/2018 143 LDL Cholesterol Date/Time Value Ref Range Status 03/04/2018 95 mg/dL Final EKG: Normal Sinus Rhythm, HR 73, LA enlargement. Right axis. Clockwise rotation. Encounter Diagnoses Name Primary? Palpitations Yes Tobacco use Chest pain, unspecified type Abnormal EKG Impression: 1. Short-lived palpitations without hemodynamic compromise. 2. A myriad of chest and epigastric discomfort - unclear whether this represent s angina or not. Her primary risk factor for coronary disease includes 35 years of smoking. 3. Nonspecific though abnormal EKG, suggesting at least left atrial enlargement and right axis shift. Plan: 1. Resting echo due to palpitations and abnormal ECG. 2. I strongly encouraged her to quit smoking and to embark on a modest exercise program. 3. Await the results of her CardioScan score. She will contact us later today. 4. For the moment, she is not interested in prolonged monitoring to try and cap ture the nature of her arrhythmias. These likely represent APCs and PVCs. If h er heart is otherwise structurally normal, this would be quite reassuring and we could proceed with an event recorder when and if her symptoms become frequent e nough that we have a higher chance of capturing them. Treatment goals, progress and next steps, as above, were discussed and mutually agreed upon with the patient/family. Thank you for allowing me to participate in Yuval Anton's care. If I can be of any further assistance, please do not hesitate to contact me. Sincerely, Parris Duvall MD /[facility] documented in this encounter Plan of Treatment Not on filedocumented as of this encounter Procedures Comments Procedure Name Priority Date/Time Associated Diag nosis ECG Routine 03/07/2018 Palpitations 11:10 AM CDT documented in this encounter Results * Echo Stress Exercise with Doppler and Color Flow if Necessary (04/21/2018 10:27 AM CDT) Specimen Impressions Performed At 1. Technically difficult study. [facility] 2. Combined test findings indicate no myocardial ischemia at 88% maximum predicted heart rate. 3. Normal wall motion and left ventri cular systolic function at rest with an estimated ejection fraction of 60%. 4. Left ventricular systolic function augments appropriately with stress and no new regional wall motion abnormaliti es are noted. 5. Fair exercise tolerance, achieving 8 METS. 6. Normal blood pressure and heart ra te response to exercise. Felice Moreno MD (Electronically Signed) Final Date: 21 April 2018 12:0 7 Narrative Performed At [facility] Exercise Echocardiogram Report [facility] Name: YUVAL ANTON Date: 04/21/2018 09:48 Chart #: [id number] : 1965 Location:[facility] OP Sono: mmar tin Age: 52 Gender: F PARRIS Wang MD Room #: OP Ht: 65 Wt: 209 BSA 2.1 Fellow: Contrast:Definity Indication:Palpitations; Tobacco use; Chest pain, unspecified type Treadmill Stress Du ration of exercise:7:21 METS: 8 Double Product 068 Protocol Resting heart rate: 71 Peak HR: 146 88.0 % max pred Protocol: Anoop 7 mins Rest ing BP: 132 / 70 Peak BP: 158 /88 HR 1 min/post exe [id number] bpm Symptoms: Dyspnea, fatigue, no com plaints of chest pain with exercise. Study was terminated due to patient e xercising to fatigue. EKG Resting EKG: NSR, poor R wave progression Exercise EKG:Non-diagnos tic due to severe motion artifact. Post-exercise EKG shows 1/2 mmST depr essions in leads 2, 3, avf, V4-V6. Arrhythmia: None ECHO LV diast 4.2 cm (4.0- 5.4 cm) IVS 0.8 cm (<=1.1 cm) LA 3.0 cm (<=3.8 cm) LV syst 2.4 cm (3 .2-4.0 cm) Post 0.8 cm (<=1.1 cm) WALL SEGMENT ANALYSIS: REST LVSI : 1 %FM : 100 LAD : 1 LCX : 1 RCA : 1 WALL SEGMENT ANALYSIS: POST LVSI : 1 %FM : 100 LAD : 1 LCX : 1 RCA : 1 Summary: Clinical response to exerc ise: nonischemic. ECG response to exerci se: non-diagnostic. Echo response to exerc ise: nonischemic. Procedure Note Interface, External Ris In - 04/21/2018 12:08 PM CDT Exercise Echocardiogram Report [facility] Name: YUVAL ANTON Date: 04/21/2018 09:48 Chart #: [id number] : 1965 Location:[facility] OP Sono: mmartin Age: 52 Gender: F PARRIS Wang MD Room #: OP Ht: 65 Wt: 209 BSA 2.1 Fellow: Contrast:Definity Indication:Palpitations; Tobacco use; Chest pain, unspecified type Treadmill Stress Duration of exercise:7:21 METS: 8 Double Product 76717 Protocol Resting heart rate: 71 Peak HR: 146 88.0 % max pred Protocol: Anoop 7 mins Resting BP: 132 / 70 Peak BP: 158 /88 HR 1 min/post [id number] bpm Symptoms: Dyspnea, fatigue, no complaints of chest pain with exercise. Study was terminated due to patient exercising to fatigue. EKG Resting EKG: NSR, poor R wave progression Exercise EKG:Non-diagnostic due to severe motion artifact. Post- exercise EKG shows 1/2 mmST depressions in leads 2, 3, avf, V4-V6. Arrhythmia: None ECHO LV diast 4.2 cm (4.0-5.4 cm) IVS 0.8 cm (<=1.1 cm) LA 3.0 cm (<=3.8 cm) LV syst 2.4 cm (3.2-4.0 cm) Post 0.8 cm (<=1.1 cm) WALL SEGMENT ANALYSIS: REST LVSI : 1 %FM : 100 LAD : 1 LCX : 1 RCA : 1 WALL SEGMENT ANALYSIS: POST LVSI : 1 %FM : 100 LAD : 1 LCX : 1 RCA : 1 Summary: Clinical response to exercise: nonischemic. ECG response to exercise: non-diagnostic. Echo response to exercise: nonischemic. IMPRESSION 1. Technically difficult study. 2. Combined test findings indicate no myocardial ischemia at 88% maximum predicted heart rate. 3. Normal wall motion and left ventricular systolic function at rest with an estimated ejection fraction of 60%. 4. Left ventricular systolic function augments appropriately with stress and no new regional wall motion abnormalities are noted. 5. Fair exercise tolerance, achieving 8 METS. 6. Normal blood pressure and heart rate response to exercise. Felice Moreno MD (Electronically Signed) Final Date: 21 April 2018 12:07 Performing Organization Address City/State/Zipcode Ph one Number [facility] * Echo Complete with Doppler and Color Flow (04/21/2018 9:50 AM CDT) Ejection 60 % [facility] Fraction Specimen Impressions Performed At 1. Normal left ventricular systolic function, with an estimated ejection [facility] fraction of 60%. 2. Normal right ventricular size and systolic function. 3. No significant valvular abnormalit ies. 4. No previous study available for co mparison. Felice Moreno MD (Electronically Signed) Final Date: 21 April 2018 12:12 Narrative Performed At [facility] ECHOCARDIOGRAM REPORT [facility] Name: YUVAL ANTON Date: 04/21/2018 09:23 Chart #: [id number] : 1965 Location: [facility] OP Sono: kike Age: 52 Gender: F Referring: PARRIS DUVALL MD Room #: OP Fellow: Indication:Palpitations; Tobacco use; Chest pain, unspecified type Procedure: [id number] Complete Echo 2D/Col orflow/Doppler BP: 132 / 70 HR: 72 Ht: 65 Wt: 209 BSA 2.1 2D ECHO MEASUREMENTS LV Diastolic Diameter Bas 4 cm 3.6-5.4 LVPW Diastolic Thickness 0.9 cm 0.6-1.1 LV Systolic Diameter Base 2.4 cm 2.3-4.0 Aorta at Sinuses Diameter 2.5 cm 2.1-3.5 LA Systolic Diameter LX 3 cm 2.3-3.8 Ascending Aorta Diameter 3 cm 2.1-3.4 IVS Diastolic Thickness 1 cm 0.6-1.1 AORTIC VALVE DOPPLER AV Peak Velocity 124 cm/ s AV Peak Gradient 6.2 mmHg MITRAL VALVE DOPPLER Mitral E Point Velocity 73.5 cm/s Mitral E to A Ratio 1.2 Mitral A Point Velocity 61.7 cm/s WALL SEGMENT ANALYSIS: ROUTINE LVSI : 1 %FM : 100 LAD : 1 LCX : 1 RCA : 1 FINDINGS LV Ejection Fraction: 60 Normal left ventricular systolic func tion, with an estimated ejection fraction of 60%. Normal wall thickness. Normal wall motion. Normal left ventricular dimensions. Normal right ventricular size and sys tolic function. Normal right and left atrial size. Mild diastolic dysfunction - normal L A pressure with mild abnormality in LV relaxation. Normal aortic valve without regurgita tion. Normal mitral valve without regurgita tion. Normal pulmonic valve without regurgi tation. Normal tricuspid valve without regurg itation. Unable to accurately estimate pulmonary artery pressure. No pericardial effusion. IVC is responsive to inspiration rasheed cating normal RA pressure. Normal dimensions of the ascending ao rta. No intracardiac masses or thrombi. Procedure Note Interface, External Ris In - 04/21/2018 12:12 PM CDT ECHOCARDIOGRAM REPORT [facility] Name: YUVAL ANTON Date: 04/21/2018 09:23 Chart #: [id number] : 1965 Location: [facility] OP Sono: mmartin Age: 52 Gender: F Referring: PARRIS DUVALL MD Room #: OP Fellow: Indication:Palpitations; Tobacco use; Chest pain, unspecified type Procedure: [id number] Complete Echo 2D/Colorflow/Doppler BP: 132 / 70 HR: 72 Ht: 65 Wt: 209 BSA 2.1 2D ECHO MEASUREMENTS LV Diastolic Diameter Bas 4 cm 3.6-5.4 LVPW Diastolic Thickness 0.9 cm 0.6-1.1 LV Systolic Diameter Base 2.4 cm 2.3-4.0 Aorta at Sinuses Diameter 2.5 cm 2.1-3.5 LA Systolic Diameter LX 3 cm 2.3-3.8 Ascending Aorta Diameter 3 cm 2.1-3.4 IVS Diastolic Thickness 1 cm 0.6-1.1 AORTIC VALVE DOPPLER AV Peak Velocity 124 cm/s AV Peak Gradient 6.2 mmHg MITRAL VALVE DOPPLER Mitral E Point Velocity 73.5 cm/s Mitral E to A Ratio 1.2 Mitral A Point Velocity 61.7 cm/s WALL SEGMENT ANALYSIS: ROUTINE LVSI : 1 %FM : 100 LAD : 1 LCX : 1 RCA : 1 FINDINGS LV Ejection Fraction: 60 Normal left ventricular systolic function, with an estimated ejection fraction of 60%. Normal wall thickness. Normal wall motion. Normal left ventricular dimensions. Normal right ventricular size and systolic function. Normal right and left atrial size. Mild diastolic dysfunction - normal LA pressure with mild abnormality in LV relaxation. Normal aortic valve without regurgitation. Normal mitral valve without regurgitation. Normal pulmonic valve without regurgitation. Normal tricuspid valve without regurgitation. Unable to accurately estimate pulmonary artery pressure. No pericardial effusion. IVC is responsive to inspiration indicating normal RA pressure. Normal dimensions of the ascending aorta. No intracardiac masses or thrombi. IMPRESSION 1. Normal left ventricular systolic function, with an estimated ejection fraction of 60%. 2. Normal right ventricular size and systolic function. 3. No significant valvular abnormalities. 4. No previous study available for comparison. Felice Moreno MD (Electronically Signed) Final Date: 21 April 2018 12:12 Performing Organization Address City/State/Zipcode Ph one Number [facility] * Electrocardiogram (ECG) (03/07/2018 11:10 AM CDT) Specimen Narrative Performed At [facility] [place] Test Date: 2018-03-07 Pat Name: [facility] ANTON [facility]: Gender: Female Verifier Operator: [id number] : 1965 Requested By: PARRIS DUVALL Order Number: [id number] Kenneth MONDRAGON: Parris Duvall Measurements Intervals [place] Rate: 72 P: 73 NV: 152 QRS: 146 QRSD: 82 T: 49 QT: 384 QTc: 421 Interpretive Statements SINUS RHYTHM PROBABLE LEFT ATRIAL ABNORMALITY Right axis LOW VOLTAGE IN FRONTAL LEADS BORDERLINE T ABNORMALITIES, ANTERIOR LE ADS Electronically Signed On 03-11-2018 15:1 7:09 CDT by Parris Duvall Procedure Note Interface, External Ris In - 03/11/2018 3:17 PM CDT [facility] Test Date: 2018-03-07 Pat Name: YUVAL ANTON Department: [facility] Room: Gender: Female Verifier Operator: [id number] : 1965 Requested By: PARRIS DUVALL Order Number: [id number] Kenneth MONDRAGON: Parris Duvall Measurements Intervals [place] Rate: 72 P: 73 NV: 152 QRS: 146 QRSD: 82 T: 49 QT: 384 QTc: 421 Interpretive Statements SINUS RHYTHM PROBABLE LEFT ATRIAL ABNORMALITY Right axis LOW VOLTAGE IN FRONTAL LEADS BORDERLINE T ABNORMALITIES, ANTERIOR LEADS Electronically Signed On 03-11-2018 15:17:09 CDT by Parris Duvall Performing Organization Address City/State/Zipcode Ph one Number [facility] documented in this encounter Visit Diagnoses Diagnosis Palpitations Tobacco use Chest pain, unspecified type Abnormal EKG Nonspecific abnormal electrocardiogram (ECG) (EKG) documented in this encounter
--- OUTSIDE RECORDS SUMMARY | 2020-06-01 06:20 | XMS REPORT | Encounter Summary ---
Author Author [facility] Organization [facility] Address Unknown Phone Unavailable Care Team Providers Care Grain Spouter Name Role Phone Kassy Leaa PCP Reason for Referral * Diagnostic Imaging (Routine) Referred By Contact Referred To Contact Status Reason Specialty Diagnoses / Procedures Parris Rizzo MD [facility] [facility] [address] [place] [address] [facility] Cv Ultrasound [id number] [place] [address] Closed Cardiology Diagnoses Palpitations Tobacco use Chest pain, unspecified type P rocedures Echo Stress Exercise with Doppler and Color Flow if Necessary Reason for Visit * Diagnostic Imaging (Routine) Referred By Contact Referred To Contact Status Reason Specialty Diagnoses / Procedures Parris Rizzo MD [facility] [address] [place] [address] [facility] Ul[facility]ound [address] [place] [address] Closed Cardiology Diagnoses Palpitations Tobacco use Chest pain, unspecified type P rocedures Echo Stress Exercise with Doppler and Color Flow if Necessary Encounter Details Care Team Description Date Type Department Parris Rizzo MD [address] [facility] [address] [place] [address] [phone] Palpitations; Tobacco use; Chest pain, unspecified type 04/21/[address] [facility] [address] [place] [address] Social History Date Tobacco Use Types Packs/Day [...] as of this encounter Plan of Treatment Order Schedule Name Type Priority Associated Diag noses Ordered: 04/23/2018 CV IMAGING STRESS Cardiac WORKSHEET Services documented as of this encounter Procedures Comments Procedure Name Priority Date/Time Associated Diag nosis ECHO EXERCISE STRESS W Routine 04/21/2018 Palpita tions CONTRAST 10:27 AM CDT Tobacco use Chest pain, unspecified type documented in this encounter Results * Echo [...] YUVAL ANTON Date: 04/21/2018 09:48 Chart #: [id number] : 1965 Location:[facility] OP Sono: elsy raza Age: 52 Gender: F PARRIS Wang MD Room #: OP Ht: 65 Wt: 209 BSA 2.1 Fellow: Contrast:Definity Indication:Palpitations; Tobacco use; Chest pain, unspecified type Treadmill Stress Du ration of exercise:7:21 METS: 8 Double Product 23 068 Protocol Resting heart rate: 71 Peak [...] YUVAL ANTON Date: 04/21/2018 09:48 Chart #: [id number] : 1965 Location:[facility] OP Sono: gerardrtin Age: 52 Gender: F PARRIS Wang MD Room #: OP Ht: 65 Wt: 209 BSA 2.1 Fellow: Contrast:Definity Indication:Palpitations; Tobacco use; Chest pain, unspecified type Treadmill Stress Duration of exercise:7:21 METS: 8 Double Product 21855 Protocol Resting heart rate: 71 Peak HR: 146 88.0 % max pred Protocol: Anoop 7 mins Resting BP: 132 / 70 Peak BP: 158 /88 HR 1 min/post [id number] bpm Symptoms: Dyspnea, fatigue, no complaints of [...] Organization Address City/State/Zipcode Ph one Number PROSOLV documented in this encounter Visit Diagnoses Diagnosis Palpitations Tobacco use Chest pain, unspecified type documented in this encounter Administered Medications Action Date Dose Rate Site Medication Order MAR Action 04/21/2018 10:15 AM CDT 4 mL perflutren lipid microspheres (DEFINITY) Given 2 mL/sodium chloride 0.9% 8 ml (10 ml total) 1-10 mL, Intravenous, Once in imaging, contrast, Starting 04/21/18 at 1027, For 1 dose documented in this encounter
--- OUTSIDE RECORDS SUMMARY | 2020-06-01 06:20 | XMS REPORT | Encounter Summary ---
Author Author [facility] Organization [facility] Address Unknown Phone Unavailable Care Team Providers Care Music Promoter Name Role Phone Marielle Lea PCP Encounter Details Care Team Description Date Type Department Chase Rizzo MD [address] [facility] [address] [place], [place] [id number] 02/25/2018 Documentation [facility] [address] [place] [address] [address] [place], [place] [address] Social History Date Tobacco Use Types Packs/Day [...]
--- OUTSIDE RECORDS SUMMARY | 2020-06-01 06:20 | XMS REPORT | Encounter Summary ---
Author Author [facility] Organization [facility] Address Unknown Phone Unavailable Care Team Providers Care Fisher Purse Seine Name Role Phone Marielle Lea PCP Encounter Details Care Team Description Date Type Department Encounter for consultation 04/12/2017 Imaging [facility] Virtual Revenu e Appointment Location Social [...] FOR Routine 04/12/2017 Encounte r for PACS 10:35 AM CDT consultation documented in this encounter Results * US Outside images for PACS (04/12/2017 10:35 AM CDT) Specimen Performing Organization Address City/State/Zipcode Ph one Number TELMA documented in this encounter Visit Diagnoses Diagnosis Encounter for consultation documented in this encounter
--- OUTSIDE RECORDS SUMMARY | 2020-06-01 06:20 | XMS REPORT | Encounter Summary ---
Author Author [facility] Organization [facility] Address Unknown Phone Unavailable Care Team Providers Care Fibrous Wallboard Inspector Name Role Phone Marielle Lea PCP Reason for Visit * Reason Comments Calcium score Encounter Details Care Team Description Date Type Department Jon Swift RN Calcium score 03/07/2018 Telephone [facility] [address] [facility] [address] [place] [address] Social History Date Tobacco Use Types Packs/Day [...] as of this encounter Miscellaneous Notes * Addendum Note - Yvual Meneses RN - 03/21/2018 8:48 AM CDT Addended by: YUVAL DAI on: 03/21/2018 08:48 AM Modules accepted: Orders * Telephone Encounter - Yuval Meneses RN - 03/21/2018 8:40 AM CDT I called and spoke w/ pt. Discussed DGS recs. Discussed goal of lowering LDL les s than 70. Pt v/u, and requested prescription be sent to [facility]. * Telephone Encounter - Chase Rizzo MD - 03/20/2018 5:37 PM CDT Lipitor 20 mg daily for LDL 90 and CACS 100. I would pass on the aspirin for now. DGS * Telephone Encounter - Jon Swift RN - 03/07/2018 2:52 PM CDT DGS, Pt called in to report that her outside cardioscan resulted with a calcium score of 100 documented in this encounter Plan of Treatment Not on filedocumented as of this encounter Visit Diagnoses Not on filedocumented in this encounter
--- OUTSIDE RECORDS SUMMARY | 2020-06-01 06:20 | XMS REPORT | Encounter Summary ---
Author Author [facility] Organization [facility] Address Unknown Phone Unavailable Care Team Providers Care Coat Operator Insulator Name Role Phone Marielle Lea PCP Reason for Visit * Reason Comments Medication questions Encounter Details Care Team Description Date Type Department Willam Flores LPN Medication questions 03/25/2018 Telephone [facility] [address] [facility] [address] [place] [address] Social History Date Tobacco Use Types Packs/Day [...] encounter Miscellaneous Notes * Telephone Encounter - Jon Swift RN - 03/26/2018 11:26 AM CDT Called Pt and relayed DGS's recommendations. Pt V/U and will concentrate on Diet , Exercise, Statin dosing as prescribed, and smoking cessation. * Telephone Encounter - Chase Rizzo MD - 03/25/2018 9:59 PM CDT She has coronary artery disease based on a CACS (from [facility]) of 100. The standard of care includes: No more smoking, statin tx, aspirin, diet, exerc ise, etc. We could start with Lipitor 10 mg (I suggested 20 mg before) and quit smoking. If she continues to smoke, aspirin 81 would not be unreasonable to consider. Attention to diet is always a good suggestion that there is as very clear benefi t to statins! DGS * Telephone Encounter - Willam Flores LPN - 03/25/2018 11:57 AM CDT Return call Pt states they were prescribed Lipitor last week and would like to k now if it is okay if I try diet to lower my LDL and if that does not work try th e medication? Stated to pt they will have to ad hear to a strict low cholesterol diet to lower LDL and when on the medication a low cholesterol diet is to be ma intained. Pt wants to know if it is critical they take the medication or can t alone be okay. Stated a note will be sent to DGS and if DGS states the medicat ion should be taken, [facility] will call back. Pt states they will get a cholesterol test in a couple of month. Routing to DGS documented in this encounter Plan of Treatment Not on filedocumented as of this encounter Visit Diagnoses Not on filedocumented in this encounter
--- OUTSIDE RECORDS SUMMARY | 2020-06-01 06:20 | XMS REPORT | Encounter Summary ---
Author Author [facility] Organization [facility] Address Unknown Phone Unavailable Care Team Providers Care Floor Coverings Salesperson Name Role Phone Marielle Lea PCP Reason for Referral * Diagnostic Imaging (Routine) Referred By Contact Referred To Contact Status Reason Specialty Diagnoses / Procedures Marielle Lea MD [address] [place] [address] Closed Diagnoses Visit for screening mammogram P rocedures MA Mammogram screening w CAD michelle bilat Encounter Details Care Team Description Date Type Department Marielle Lea MD 1 [place] [address] Visit for screening mammogram (Primary D x) 03/15/2017 Transcribe [facility] Breast [address], [address] [place] [address] Social History Date Tobacco Use Types Packs/Day [...] 10:17 AM CDT) Specimen Impressions Performed At [facility] No mammographic evidence of malignancy. Routine mammogram in 1 year is recommen ded. Patient will receive a reminder letter. BI-RADS CATEGORY 1: Negative READING SITE: [facility] Ashley Sampson MD Electronically Signed: 04/12/2017 at 05:46:00 PM Your patient will receive the results o f this examination as outlined by the Mammography Quality Standards Act. Dagmar Anton, [id number] 1965 1 Page 1li Narrative Performed At [address], [address] [place] [address] Patient: Dagmar Anton Date of [...] Rad Results In - 04/12/2017 5:49 PM CDT [address], [address] [place] [address] Patient: Dagmar Anton Date of [...] letter. BI-RADS CATEGORY 1: Negative READING SITE: [facility] Ashley Sampson MD Electronically Signed: 04/12/2017 at 05:46:00 PM Your patient will receive the results of this examination as outlined by the Mammography Quality Standards Act. Dagmar Anton, [id number] 1965 1 Page 1li Performing Organization Address City/State/Zipcode Ph one Number TEMOEDGAR documented in this encounter Visit Diagnoses Diagnosis Visit for screening mammogram documented in this encounter
--- OUTSIDE RECORDS SUMMARY | 2020-06-01 06:20 | XMS REPORT | Encounter Summary ---
Author Author [facility] Organization [facility] Address Unknown Phone Unavailable Care Team Providers Care Crate Tier Name Role Phone Marielle Lea PCP Encounter Details Care Team Description Date Type Department Encounter for consultation 04/12/2017 Imaging [facility] Virtual Revenu e Appointment Location [...]
--- OUTSIDE RECORDS SUMMARY | 2020-06-01 06:20 | XMS REPORT | Encounter Summary ---
Author Author [facility] Organization [facility] Address Unknown Phone Unavailable Care Team Providers Care Nuclear Licensing Engineer Name Role Phone Marielle Lea PCP Encounter Details Care Team Description Date Type Department Encounter for consultation 04/12/2017 Imaging [facility] Virtual Revenu e Appointment Location Social [...]
--- OUTSIDE RECORDS SUMMARY | 2020-06-01 06:20 | XMS REPORT | Encounter Summary ---
Author Author [facility] Organization [facility] Address Unknown Phone Unavailable Care Team Providers Care Jacquard Loom Fixer Name Role Phone Venu Marielle PCP Reason for Referral * Diagnostic Imaging (Routine) Referred By Contact Referred To Contact Status Reason Specialty Diagnoses / Procedures Parris Duvall MD [address] [facility] [address] [place] [address] [facility] Cv Ultrasound [address] [place] [address] Closed Cardiology Diagnoses Palpitations Tobacco use Chest pain, unspecified type P rocedures Echo Complete with Doppler and Color Flow Reason for Visit * Diagnostic Imaging (Routine) Referred By Contact Referred To Contact Status Reason Specialty Diagnoses / Procedures Parris Duvall MD [address] [facility] [address] [place] [address] [facility] Cv Ultrasound [address] [place] [address] Closed Cardiology Diagnoses Palpitations Tobacco use Chest pain, unspecified type P rocedures Echo Complete with Doppler and Color Flow Encounter Details Care Team Description Date Type Department Parris Duvall MD [address] [facility] [address] [place] [address] [phone] Palpitations; Tobacco use; Chest pain, unspecified type 04/21/2018 [place] [address] Social History Date Tobacco Use Types Packs/Day [...] Name Priority Date/Time Associated Diag nosis ECHO COMPLETE W DOPPLER Routine 04/21/2018 Palpit ations AND COLOR FLOW 9:50 AM CDT Tobacco use Chest pain, unspecified type documented in this encounter Results * Echo Complete with Doppler and Color [...] YUVAL ANTON Date: 04/21/2018 09:23 Chart #: [id number] : 1965 Location: [facility] OP Sono: mmartin Age: 52 Gender: F Referring: PARRIS DUVALL MD Room #: OP Fellow: Indication:Palpitations; Tobacco use; Chest pain, unspecified type Procedure: 59804 Complete Echo 2D/Col orflow/Doppler BP: 132 / [...] YUVAL ANTON Date: 04/21/2018 09:23 Chart #: [id number] : 1965 Location: [facility] OP Sono: mmartin Age: 52 Gender: F Referring: PARRIS DUVALL MD Room #: OP Fellow: Indication:Palpitations; Tobacco use; Chest pain, unspecified type Procedure: 78752 Complete Echo 2D/Colorflow/Doppler BP: 132 / 70 [...]
--- OUTSIDE RECORDS SUMMARY | 2020-06-01 06:21 | XMS REPORT | Encounter Summary ---
Author Author [facility] Organization [facility] Address Unknown Phone Unavailable Care Team Providers Care Plant Operator/Shift Supervisor Name Role Phone Marielle Lea PCP Encounter Details Care Team Description Date Type Department [facility], Historical 02/01/2011 PracPart Note [facility] Social History Date Tobacco Use Types Packs/Day Years Used Never Assessed Sex Assigned at Date Recorded Not on file Industry Job Start Date Occupation Not on file Not on file Not on file Travel End Travel History Travel Start No recent travel history available. documented as of this encounter Progress Notes * [facility], Historical - 02/01/2011 10:22 AM CDT . : 10:22am .T: Wait list letter [facility] Yudi De La Garza M.D. [address] [place] [address] [address] [facility] Ronan De La Garza M.D. [address] [place] [address] [place] [address] [address] [place] [address] [place] [address] Lachelle Reed M.D. Stacy Melvin M.D. Diane Mathis M.D. F ax: Lavell Root D.O. Calvin Edgar M.D. [facility] Jony Corcoran M.D., Ph.D. Adi Montes M.D. 02/01/11 Dagmar Rivers [address] [place] [address] Dear Dagmar Rivers, We are writing to remind you that it is time to make your follow up appointment. At the time you were in the office our schedule was not available or you asked us to remind you later to schedule this appointment. We attempted to call you, but you were unavailable. Please contact our office at [phone] option 4 to schedule your appointment with Lachelle Reed for March or April 2011. Her scheduled will fill very q uickly so we recommend contacting our office at your first opportunity. Thank you in advance for your attention in this matter. This will serve as the only reminder to schedule this appointment. Sincerely, Scheduling Department documented in this encounter Plan of Treatment Not on filedocumented as of this encounter Visit Diagnoses Not on filedocumented in this encounter
--- OUTSIDE RECORDS SUMMARY | 2020-06-01 06:21 | XMS REPORT | Encounter Summary ---
Author Author [facility] Organization [facility] Address Unknown Phone Unavailable Care Team Providers Care Server Service Assistant Name Role Phone Marielle Lea PCP Encounter Details Care Team Description Date Type Department [facility], Historical 07/08/2007 PracPart Note [facility] Social History Date Tobacco Use Types Packs/Day Years Used Never Assessed Sex Assigned at Date Recorded Not on file Industry Job Start Date Occupation Not on file Not on file Not on file Travel End Travel History Travel Start No recent travel history available. documented as of this encounter Progress Notes * [facility], Historical - 07/08/2007 3:38 PM CDT . : 03:38pm PATIENT NAME: Betito Rivers DATE OF : [birth year] AGE: 41 Ye ar DATE: 07/08/07 REFERRING PHYSICIAN: Wellington Raya REASON FOR VISIT : follow-up /03-20-10: follow up DRUG ALLERGIES: NKDA PAST MEDICAL HISTORY: 0-10: none of the above ADEM 06/2000- right hemispheric demyelinating lesions confirmed by biopsy LIST ALL MAJOR SURGERIES, HOSPITALIZATIONS, OR ACCIDENTS: SURGERIES cholecystectomy (laparoscopic) 1998 tubal ligation 1999 breast reduction 2004 childbirth 1987, 1989 francesca lesions 19993-10: cholecystectomy: 2000, breast reduction: 2004, lumpectomy: 2006, child b irth: , unknown virus-brain lesions: 1999 Review of Systems General-0/-3-10: n/a Pain : 5-3-10: n/a Average pain most days (lowest) 2 (highest) Where does hurt? shoulder Staying the same or getting worse? Same What do you take for the pain? ibuprofen Does it help? yes Skin-0/5-3-10: n/a Eyes / Ears / Sinuses Wear Glass yes Sinus trouble yes -3-10: glaucoma: lasik 4-10 Mouth / Neck-0/5-3-10: n/a Lungs-0/-3-10: n/a Heart / Blood Vessels -0/-3-10: n/a Gastrointestinal -0/-3-10: gall bladder removed Neurological and Spine Back Dominant Right Hand yes /5-3-10: yes Endocrine / Glands-0--10: n/a updated hhx and med list [id number] LINK:[id number] thompson [id number].t if INVALID LINK:[id number] Thompson [facility] [id number].[email or web address] documented in this encounter Plan of Treatment Not on filedocumented as of this encounter Visit Diagnoses Not on filedocumented in this encounter
--- OUTSIDE RECORDS SUMMARY | 2020-06-01 06:21 | XMS REPORT | Encounter Summary ---
Author Author [facility] Organization [facility] Address Unknown Phone Unavailable Care Team Providers Care Auto Refinisher Name Role Phone PCP Unavailable Encounter Details Care Team Description Date Type Department Lachelle Reed MD [address] [address] [phone] 10/21/2012 Hist-Visit [facility] HIST CLINIC Social History Date Tobacco Use Types Packs/Day Years Used Never Assessed Sex Assigned at Date Recorded Not on file Industry Job Start Date Occupation Not on file Not on file Not on file Travel End Travel History Travel Start No recent travel history available. documented as of this encounter Last Filed Vital Signs Reading Time Taken Comments Vital Sign 136/78 10/21/2012 11:39 AM WHIZZER HAND Blood Pressure 75 10/21/2012 11:39 AM WHIZZER HAND Pulse - - Temperature - - Respiratory Rate - - Oxygen Saturation - - Inhaled Oxygen Concentration 84.8 kg (187 lb) 10/21/2012 11:39 AM WHIZZER HAND Weight - - Height - - Body Mass Index documented in this encounter Progress Notes * Lachelle Reed MD - 10/21/2012 12:08 PM WHIZZER HAND .D: 12 : 12:08pm .T: Return Patient [facility] Yudi De La Garza M.D. [address] [facility] Ronan De La Garza M.D. [address] [place] [address] [place], [place] [address] [place] [address] [place] [address] John Luke M. Derek, M.D. Ahmet Navarro M.D. Stacy Melvin M.D. Diane Mathis M.D. F ax: Lavell Root D.O. Calvin Edgar M.D. Shirley Hall, MSN,RN,ANP, [facility] Jony Corcoran M.D., Ph.D. Adi Montes M.D. Andrew Charles M.D. 10/21/12 Wellington Raya MD [address] [place] [address] RE: Dagmar Anton : [address] [...] No dysmetria on finger to nose or [id number]. Gait: Normal, including tandem walking. Impression: Dagmar [...] testing. I appreciate the opportunity to participate in this delightful patient's care. Deirdre charles do not hesitate to contact me if there are questions or concerns. # SIGNED BY Lachelle Reed MD (CMB) 10/21/2012 12:14PM ZER HAND documented in this encounter Plan of Treatment Not on filedocumented as of this encounter Visit Diagnoses Not on filedocumented in this encounter
--- OUTSIDE RECORDS SUMMARY | 2020-06-01 06:21 | XMS REPORT | Encounter Summary ---
Author Author [facility] Organization [facility] Address Unknown Phone Unavailable Care Team Providers Care Acid Polymerization Operator Name Role Phone Marielle Lea PCP Encounter Details Care Team Description Date Type Department [facility], Historical 07/08/2007 PracPart Note [facility] Social History Date Tobacco Use Types Packs/Day Years Used Never Assessed Sex Assigned at Date Recorded Not on file Industry Job Start Date Occupation Not on file Not on file Not on file Travel End Travel History Travel Start No recent travel history available. documented as of this encounter Progress Notes * [facility], Historical - 07/08/2007 3:40 PM CDT . 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 yes somewhat/5-3-10: no documented in this encounter Plan of Treatment Not on filedocumented as of this encounter Visit Diagnoses Not on filedocumented in this encounter
--- OUTSIDE RECORDS SUMMARY | 2020-06-01 06:21 | XMS REPORT | Encounter Summary ---
Author Author [facility] Organization [facility] Address Unknown Phone Unavailable Care Team Providers Care Entry Level Account Representative Name Role Phone Marielle Lea PCP Encounter Details Care Team Description Date Type Department Lachelle Reed MD [address] [facility] [address] [place] [address] [phone] 10/29/2012 PracPart Note [facility] Neurol ogy [address] [place] [address] Social History Date Tobacco Use Types Packs/Day Years Used Never Assessed Sex Assigned at Date Recorded Not on file Industry Job Start Date Occupation Not on file Not on file Not on file Travel End Travel History Travel Start No recent travel history available. documented as of this encounter Progress Notes * Lachelle Reed MD - 10/29/2012 9:31 AM AUTO HAULER . :09:31AM .T:GFR order From: Lachelle Reed ([facility]) Originated by: Lachelle Reed (Az) S ent: 10/29/2012 at 09:31AM To: Jeannie Steen () Type: Priority: 3 Subject: GFR order Order entered [facility] 10-29-12 Original Message: From: To: [facility] Subject: GFR order Priority: 3 Date: 10/29/2012 I called [facility] to check to see when the pt mega her appt for MRI, as she wanted to mega this test herself. I was told it had not been schd yet, and that they need the order, precert info, and a GFR order before they will mega the appt . I am calling [facility] right now to obtain the precert info. Can you pls put the or tova in for GFR so I can fax with the order?-ah documented in this encounter Plan of Treatment Not on filedocumented as of this encounter Visit Diagnoses Not on filedocumented in this encounter
--- OUTSIDE RECORDS SUMMARY | 2020-06-01 06:21 | XMS REPORT | Encounter Summary ---
Author Author [facility] Organization [facility] Address Unknown Phone Unavailable Care Team Providers Care Vp Site Name Role Phone Marielle Lea PCP Encounter Details Care Team Description Date Type Department Slnc, Historical 10/21/2012 [facility]Visit [facility] Social History Date Tobacco [...] Comments Vital Sign 136/78 10/21/2012 11:39 AM GAMBLING FLOOR SUPERVISOR Blood Pressure 75 10/21/2012 11:39 AM GAMBLING FLOOR SUPERVISOR Pulse - - Temperature - - Respiratory Rate - - Oxygen Saturation - - Inhaled Oxygen Concentration 84.8 kg (187 lb) 10/21/2012 11:39 AM GAMBLING FLOOR SUPERVISOR Weight - - Height - - Body Mass Index documented in this encounter Plan of Treatment Not on filedocumented as of this encounter Visit Diagnoses Not on filedocumented in this encounter
--- OUTSIDE RECORDS SUMMARY | 2020-06-01 06:21 | XMS REPORT | Encounter Summary ---
Author Author [facility] Organization [facility] Address Unknown Phone Unavailable Care Team Providers Care Rock Splitter Name Role Phone PCP Unavailable Encounter Details Care Team Description Date Type Department Lachelle Reed MD [address] [address] [phone] 07/07/2007 Hist-Visit [facility] Social History Date Tobacco Use Types Packs/Day Years Used Never Assessed Sex Assigned at Date Recorded Not on file Industry Job Start Date Occupation Not on file Not on file Not on file Travel End Travel History Travel Start No recent travel history available. documented as of this encounter Progress Notes * Lachelle Reed MD - 07/07/2007 10:01 AM CDT . : 10:01am .T: Return Patient [facility], [facility] Yudi De La Garza M.D. [address] [facility] Ronan De La Garza M.D. [address] Shannan [place] [address] [place], [place] [address] [place] [address] [place] [address] Lachelle Reed M.D. Priscilla Felix M.D. Salvador Jefferson M.D. Stacy Melvin M.D. Diane Mathis M.D. F ax: Elisa Corrigan M.D. [facility] Jony Corcoran M.D., Ph.D. Adi Motnes M.D. 07/07/07 Wellington Raya MD [address] [facility] [place] [address] [place] [address] RE: Dagmar Rivers : [address] Raya: It was my pleasure to see Dagmar Rivers in neurological follow up on July 07, 2007 at our [place] office. She has been doing quite well and continues to deny a ny neurological symptoms. She had a follow-up MRI brain in January 2007 for compar krystina. This study was reviewed with the patient and was unchanged from prior sarah dy in 2004. She continues to have increased signal seen in the left frontal and parietal periventricular space. There were no new lesions or abnormal contrast enhancement. She denies any visual changes, visual loss, or diplopia. There has been no dizz iness or vertigo. She denies any facial paresthesia or droop. She is recently having some trouble swallowing what she attributes to postnasal drip and some ly mphadenopathy. She has an ENT appointment later today. There has been no troub le with speech. She denies Lhermitte's phenomenon. She denies any issues with her mood or memory. She denies any unilateral numbness, weakness, or sensory ch anges. There has been no clumsiness. She denies bowel or bladder incontinence. She denies trouble with her gait. There are no other complaints. Her past medical history and surgical history were reviewed. She has had a marixa st lumpectomy and stereotactic biopsy. This was benign calcifications attribute d to her prior breast reduction. Physical Examination: Blood pressure 120/80, weight 179 pounds. In general she is a well-developed, well-nourished, very pleasant female in no acute distress. Cranial nerves: Pupils equally round and reactive to light, extraocular movemen ts are full without nystagmus, face symmetric, facial sensation intact to light touch, masseter strength and function equal, hearing intact to finger rubbing bi laterally, tongue midline, palate elevates bilaterally, shoulder shrug is equal. Motor: Strength is 5/5 throughout with normal tone and no pronator drift. Sen sation: Intact light touch, pinprick, and vibration. DTRs: 2/4 throughout. Reilly ntar responses are downgoing. Coordination: Subtle past pointing on the left. No dysmetria on hzvsyg-gd-fnay or sglj-be-dyat. Rapid successive movements are normal. Gait: Normal, including tandem walking. Impression: In Dagmar Rivers is status post left hemispheric demyelinating lesions. These are presumed post viral in etiology. There has been no evidence of ongoing neurolo gical symptoms or development of new lesions. There is no evidence of a demyeli nating syndrome such as multiple sclerosis. This was discussed with the patient . I recommend continued neurologic follow-up and will repeat herexamination in one to two years. I appreciate the opportunity to participate in this pleasant patient's care. Pl ease do not hesitate to contact me if there are questions or concerns. # SIGNED BY Lachelle Reed (CMB) 07/07/2007 03:53PM documented in this encounter Plan of Treatment Not on filedocumented as of this encounter Visit Diagnoses Not on filedocumented in this encounter
--- OUTSIDE RECORDS SUMMARY | 2020-06-01 06:21 | XMS REPORT | Encounter Summary ---
Author Author [facility] Organization [facility] Address Unknown Phone Unavailable Care Team Providers Care Import/Export Specialist Name Role Phone Marielle Lea PCP Encounter Details Care Team Description [place] [address] [facility] [address] [place] [address] [phone] 05/14/2008 PracPart Note [facility] Neurol ogy [address] [place] [address] Social History Date Tobacco Use Types Packs/Day Years Used Never Assessed Sex Assigned at Date Recorded Not on file Industry Job Start Date Occupation Not on file Not on file Not on file Travel End Travel History Travel Start No recent travel history available. documented as of this encounter Progress Notes * Calvin Edgar MD - 05/14/2008 2:29 PM CDT . : 02:29pm .T: Phone call from patient I received a phone call from patient stating someone from our office called her yesterday. I let her in know it was not Alina or I and transfered her to jenise mendez to see if someone from scheduling had called trying to schedule an annual a ppointment. Yanely mueller documented in this encounter Plan of Treatment Not on filedocumented as of this encounter Visit Diagnoses Not on filedocumented in this encounter
--- OUTSIDE RECORDS SUMMARY | 2020-06-01 06:21 | XMS REPORT | Encounter Summary ---
Author Author [facility] Organization [facility] Address Unknown Phone Unavailable Care Team Providers Care Ship Engines Operating Engineer Name Role Phone Marielle Lea PCP Encounter Details Care Team Description Date Type Department [facility], Historical 11/03/2012 PracPart Note [facility] Social History Date Tobacco Use Types Packs/Day Years Used Never Assessed Sex Assigned at Date Recorded Not on file Industry Job Start Date Occupation Not on file Not on file Not on file Travel End Travel History Travel Start No recent travel history available. 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 :03:31PM .T:Oct 2014 [facility] From: Jeannei Steen () Originated by: Jeannie Steen () Sent: 2 at 03:31PM To: Jennifer Fisher ([place]) Type: Priority: 3 Subject: Oct 2014 [facility] Can you please input the patient alert in pds for Oct 2014 [facility].....This pt needs to be seen back in 2yrs and I need to make sure she gets on the [facility], but there is NO code for that yet-x documented in this encounter Plan of Treatment Not on filedocumented as of this encounter Visit Diagnoses Not on filedocumented in this encounter
--- OUTSIDE RECORDS SUMMARY | 2020-06-01 06:21 | XMS REPORT | Encounter Summary ---
Author Author [facility] Organization [facility] Address Unknown Phone Unavailable Care Team Providers Care Gl[employer]ier Metal Furniture Name Role Phone PCP Unavailable Encounter Details Care Team Description Date Type Department Lachelle Reed MD [address] [id number] 03/20/2010 Hist-Visit [facility]IST CL[facility] Social History Date Tobacco Use Types Packs/Day Years Used Never Assessed Sex Assigned at Date Recorded Not on file Industry Job Start Date Occupation Not on file Not on file Not on file Travel End Travel History Travel Start No recent travel history available. documented as of this encounter Last Filed Vital Signs Reading Time Taken Comments Vital Sign 130/84 03/20/2010 10:39 AM CDT Blood Pressure 72 03/20/2010 10:39 AM CDT Pulse - - Temperature - - Respiratory Rate - - Oxygen Saturation - - Inhaled Oxygen Concentration 78.9 kg (174 lb) 03/20/2010 10:39 AM CDT Weight - - Height - - Body Mass Index documented in this encounter Progress Notes * Lachelle Reed MD - 03/20/2010 10:59 AM CDT .D: 10 : 10:59am .T: Return Patient [facility], [facility] Yudi De La Garza M.D. [address] [facility] Ronan De La Garza M.D. [address] [place] [address] [place] [address] [address] [place] [address] [place] [address] Lachelle Reed M.D. Julieta Bal D.O. Stacy Melvin M.D. Diane Mathis M.D. F ax: Lavell Root D.O. Calvin Edgar M.D. [facility] Jony Corcoran M.D., Ph.D. Adi Montes M.D. 03/20/10 Wellington Raya MD [address] [facility] [place] [address] [place] [address] RE: Dagmar Rivers : [address] Raya: I saw your patient Dagmar Rivers, date of 61 today in neurological follow up. I have reviewed the Past, Social and Family histories on this patient and they h ave been documented in the electronic medical record. I have done a complete rev iew of systems also in the electronic medical record. The following medication was reported to me by the patient and may assist you: None Ms. Rivers has been doing relatively well. She denies any interval lasting s ymptoms. Today she complains of some intermittent numbness in her hands that oc curs randomly. This does not awaken her from sleep but upon awakening she has n oticed both hands are numb, improving with position changes. She also has some occasional numbness in her feet after crossing her legs. She denies any claudic ation symptoms. She is concerned about peripheral artery disease. Unfortunatel y, she continues to smoke more than one pack per day. She has had some visual changes but had visual corrective surgery 3 weeks ago. Prior to that she had not had specific issues with blurred vision or diplopia. She is beginning to notice presbyopia changes. She denies any dizziness or vert igo. No speech or swallowing difficulties. She denies any difficulty with her memory or mood. No weakness in her extremities. She denies any difficulty with her gait. She and her friend present report that she snores frequently. There has been no witnessed apneic episodes. She is not exercising regularly. Physical examination: Blood pressure 130/84, pulse 72, weight 174 pounds. In [facility] she is a well-developed, well-nourished, very pleasant female in no acute distress. Fundi: Disks sharp bilaterally without papilledema. Cranial nerves: Pupils equally round and reactive to light, extraocular movements are full witho ut nystagmus, face symmetric, facial sensation intact to light touch, masseter s trength and function equal, tongue midline, palate elevates bilaterally, shoulde r shrug is equal. Motor: Strength 5/5 throughout with subtle pronator drift on the right. Tone is normal. Sensation: Intact light touch and pinprick. Intact vibration sense at the toes. DTRs: 2/4 throughout. Positive Phalen and Tinel sign at the right median nerve. Bilateral radial pulses and dorsalis pedis puls es are equal at 2/4. Gait: Normal, including tandem walking. Romberg negative. 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 She has had no development of interval symptoms or MRI lesions over several years of ser ial scans to suggest multiple sclerosis. I would not recommend MRI imaging at t his point unless she should develop new symptoms. I will repeat her neurologic examination in approximately 2 years, sooner if additional problems should arise . 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 We reviewed carpal tunnel syndrome in general. I recommended u sing a neutral wrist splint H. S. for the next several weeks then p.r.n. She wi ll contact me if they should worsen and may benefit from EMG and nerve conductio n studies. She had negative studies in approximately 2000. For her overall general health, we discussed developing a regular exercise regim en with cardiovascular exercise approximately 30 minutes 4 times per week. We t alked about the importance of smoking cessation. I recommended she begin aspiri n 81 mg daily, multivitamin, and calcium plus vitamin D. I suggested she follow -up with you for consideration of a sleep study with her complaints of snoring. We also talked about having her family watch closely to see if there are any ap neic episodes. I appreciate the opportunity to participate in this delightful patient's care. Please do not hesitate to contact me if there are questions or concerns. # SIGNED BY Lachelle Reed MD (CMB) 03/20/2010 11:07AM documented in this encounter Plan of Treatment Not on filedocumented as of this encounter Visit Diagnoses Not on filedocumented in this encounter
--- OUTSIDE RECORDS SUMMARY | 2020-06-01 06:21 | XMS REPORT | Encounter Summary ---
Author Author [facility] Organization [facility] Address Unknown Phone Unavailable Care Team Providers Care Motor Vehicle Operator Road Supervisor Name Role Phone Marielle Lea PCP Encounter Details Care Team Description Date Type Department [facility], Historical 10/29/2012 PracPart Note [facility] Social History Date Tobacco Use Types Packs/Day Years Used Never Assessed Sex Assigned at Date Recorded Not on file Industry Job Start Date Occupation Not on file Not on file Not on file Travel End Travel History Travel Start No recent travel history available. 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 : 09:13am .T: outside scheduling MRI Head w and w/o INVALID LINK:[id number]\[facility] [id number] No precert needed per Abbie @ [facility]# [phone] fx# [phone] 10-21-12: the pt let me know before she left that she would prefer to mega the ean t herself. She stated she will call me back with the date and time.- 10-29-12: I called [facility] to check when the pts appt was scheduled for, and was told that it had not been scheduled yet. They require the order and precert info before they can mega the appt. I let them know I would fax that infor to the and on the fax coversheet ask that they [facility] 10-29-12: I faxed order, gfr order, and demo to [facility] and asked that th ey [facility] documented in this encounter Plan of Treatment Not on filedocumented as of this encounter Visit Diagnoses Not on filedocumented in this encounter
--- OUTSIDE RECORDS SUMMARY | 2020-06-01 06:21 | XMS REPORT | Encounter Summary ---
Author Author [facility] Organization [facility] Address Unknown Phone Unavailable Care Team Providers Care Butadiene Convertor Operator Name Role Phone Marielle Lea PCP Encounter Details Care Team Description Date Type Department [facility], Historical 10/29/2012 PracPart Note [facility] Social History Date Tobacco Use Types Packs/Day Years Used Never Assessed Sex Assigned at Date Recorded Not on file Industry Job Start Date Occupation Not on file Not on file Not on file Travel End Travel History Travel Start No recent travel history available. 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 :09:50AM .T:GFR order From: Jeannie Steen () Originated by: Jeannie Steen () Sent: 2 at 09:50AM To: Lachelle Reed ([facility]) Type: Priority: 3 Subject: GFR order thank you. I have faxed it along with the MRI order to [facility] and they w ill call the pt to [facility] appt- Original Message: From: [facility] To: Subject: GFR order Priority: 3 Date: 10/29/2012 Order entered [facility] 10-29-12 Original Message: From: To: [facility] Subject: GFR order Priority: 3 Date: 10/29/2012 I called [facility] to check to see when the pt mega her appt for MRI, as she wanted to mega this test herself. I was told it had not been schd yet, and that they need the order, precert info, and a GFR order before they will mega the appt . I am calling [facility] right now to obtain the precert info. Can you pls put the or tova in for GFR so I can fax with the order?- documented in this encounter Plan of Treatment Not on filedocumented as of this encounter Visit Diagnoses Not on filedocumented in this encounter
--- OUTSIDE RECORDS SUMMARY | 2020-06-01 06:21 | XMS REPORT | Encounter Summary ---
Author Author [facility] Organization [facility] Address Unknown Phone Unavailable Care Team Providers Care Corporate Officer Name Role Phone Marielle Lea PCP Encounter Details Care Team Description Date Type Department [facility], Historical 07/08/2007 PracPart Note [facility] Social History Date Tobacco Use Types Packs/Day Years Used Never Assessed Sex Assigned at Date Recorded Not on file Industry Job Start Date Occupation Not on file Not on file Not on file Travel End Travel History Travel Start No recent travel history available. documented as of this encounter Progress Notes * [facility], Historical - 07/08/2007 3:40 PM CDT . : 03:40pm Alcoholism: yes grandfather, uncle, father 5-3-10: hyperstension: yes father high cholesterol: no coronary heart disease: no diabetes: no migraines: no cvd/stroke: no cancer: yes paternal grandfather alcoholism: yes paternal grandfather, paternal uncle epilepsy: no MS: no alzheimers: yes maternal grandma, paternal grandpa parkinsons disease: no mental illness: no other: no documented in this encounter Plan of Treatment Not on filedocumented as of this encounter Visit Diagnoses Not on filedocumented in this encounter
--- OUTSIDE RECORDS SUMMARY | 2020-06-01 06:21 | XMS REPORT | Encounter Summary ---
Author Author [facility] Organization [facility] Address Unknown Phone Unavailable Care Team Providers Care Policy Intern Name Role Phone PCP Unavailable Encounter Details Care Team Description Date Type Department Carl Shelton [phone] 06/19/2000 [facility] - Encounter 06/27/2000 Social History Date Tobacco Use Types Packs/Day Years Used Never Assessed Sex Assigned at Date Recorded Not on file Industry Job Start Date Occupation Not on file Not on file Not on file Travel End Travel History Travel Start No recent travel history available. documented as of this encounter Discharge Summaries * ProviderJac MD - 01/16/2014 10:06 PM PASTORAL WORKER Report Name: DAGMAR RIVERS MRN/Unit #: [id number] Attending Physician: Carl SHELTON Date of : 1965 HOSPITAL COURSE: Mrs. Rivers is a very pleasant, 34-year-old woman, who developed the onset of progressive weakness of the right side of her body approximately two weeks ago. Her symptoms developed over several days with progressive weakness and clumsiness in the use of her right arm and leg and in walking. Dr. Raay saw her at his office in [place] and obtained an MR scan which showed two large lesions in the left frontal and left parietal area. She was referred to me for neurosurgical evaluation. The concern, of course, was that she may have a metastatic MICROFILM MACHINE OPERATOR neoplasm or multifocal glioblastoma. A search for malignancy outside the central nervous system was negative. She was seen by oncology and by infectious disease as well as by neurology. Her spinal fluid examination with spinal puncture suggested 13 white blood cells with 96 lymphocytes, 4 monocytes, protein 37, glucose 75 and Gram stain negative suggesting this is probably a demyelinating process. She was scheduled for a CT-guided stereotactic biopsy. Angiography prior to her scheduled biopsy did not demonstrate any evidence of vascular abnormality. There was concern, however, that her MICROFILM MACHINE OPERATOR lesions were a very unusual form of multiple sclerosis called tumor of active MS. For this reason, it was felt appropriate to discontinue the scheduled biopsy and follow her clinically. During the time she has been in the hospital the right hemiparesis has improved dramatically. At the present time, alternate motion rates are normal and symmetric. The pronator drift sign is absent today. She has no headache. She is doing very well. The patient has a number of laboratory studies currently pending, but in view of her improvement she is to be dismissed today. She will have follow-up MRI scanning and repeat neurologic/neurosurgical assessment in one month. E. Seth Shelton M.D. Dictated By: cc: Dr. Jamil Raya, [facility], [place], [place] John Medrano M.D. Dr. Bottwell Name: DAGMAR RIVERS Room-Bed/Loc/Type: 1441-01/EA1 /IL Admit Date: 06/19/2000 Discharge Date: DISCHARGE SUMMARY ORAL WORKER documented in this encounter H&P Notes * ProviderJac MD - 01/16/2014 10:08 PM PASTORAL WORKER Report [id number]/[id number] [place], [place] Name: DAGMAR RIVERS MRN/Unit #: [id number] Attending Physician: Carl SHELTON Date of : 1965 I am just finishing seeing Ms. Rivers in my office. She does not yet have a [facility] ID#. Ms. 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 I saw her at the request of Dr. Raya for a one-week history of increasing weakness of her right arm and leg. Her symptoms began approximately last or Saturday and have gradually worsened. She denies any associated headache, nausea, vomiting, or seizure activity. She feels slightly unsteady with poor balance, so she feels this is probably related to her weakness. The remainder of her neurologic review of systems and general review of systems is unremarkable. PAST MEDICAL HISTORY: Her general health is good. She underwent a cholecystectomy one year ago. She has no chronic medical problems. ALLERGIES: SHE HAS NO MEDICAL ALLERGIES. CURRENT MEDICATIONS: She takes Triphasil which is an oral contraceptive. SOCIAL HISTORY: She smokes 1-1/2 packs of cigarettes per day and has done so for approximately 15 years. PHYSICAL EXAMINATION: On examination, she is alert and cooperative. No dysphasic abnormalities of speech are apparent. Cognitive function appears preserved. There is no ataxia or dysmetria on cerebellar testing. Her visual henderson are full. Funduscopic examination reveals sharp disk margins. Cranial nerve testing is normal. She has right hemiparesis with associated hyperreflexia and positive pathologic reflexes. Sensory examination is noncontributory. Head, ears, eyes, nose, and throat are otherwise unremarkable. No palpable cervical masses. No audible cervical bruits. Chest is clear to auscultation. Heart tones are regular without murmurs, rubs, or gallops. Abdomen is soft. Rectal and pelvic examinations were deferred. LABORATORY STUDIES, X-RAY FINDINGS, AND OTHER STUDIES: I reviewed an MR scan which was performed yesterday and brought to me by the patient. She has two fairly large central white matter lesions in the periventricular location involving the right frontal and right parietal lobes. There is little reactive edema and she has no significant midline shift. PLANS/RECOMMENDATIONS: She is being admitted to [facility] for definitive evaluation of her central nervous system neoplasms. This could possibly be primary central nervous system lymphoma as well as metastasis or multifocal glioblastoma. I will request oncologic consultation and begin a survey for peripheral evidence of neoplasms. Tentatively planned CT guided stereotactic biopsy of her nervous system. Anahy Shelton M.D. cc: Jamil Raya MD; [facility]; [place], [place] Name: DAGMAR RIVERS Room-Bed/Loc/Type: 1439 Acct #: Admit Date: HISTORY AND PHYSICAL 1 OF 1 ORAL WORKER documented in this encounter Consult Notes * ProviderJac MD - 01/16/2014 10:08 PM PASTORAL WORKER Report CON/lashelle/[id number] [place], [place] Name: DAGMAR RIVERS MRN/Unit #: [id number] Attending Physician: Carl SHELTON Consulting Physician: Jaspal Shelton Date of : 1965 DATE OF CONSULTATION: 06/19/00 REASON FOR CONSULTATION: Brain tumor. HISTORY OF PRESENT ILLNESS: This is a 34-year-old white female with no significant past medical history who has had onset of right-sided weakness 6 days ago. She first noticed her weakness when she was "catching" her foot on her carpet, then her symptoms progressed and included involvement of her right upper extremity. She noticed that her right upper extremity was weak and progressed to her unable to write. She went to see her primary medical doctor who ordered an MRI. The MRI showed that she had 2 mass lesions, approximately 2 cm, in the left parietal area, with no signs of hemorrhage. She denies any other symptoms of headaches or blurred vision. She denies any syncope or seizures. Her last breast exam was more than 1 year and her last mammogram was greater than 3 years ago. She states she is up-to-date on her Pap and pelvic exams. She has no family history of malignancy. ALLERGIES: SHE HAS NO KNOWN DRUG ALLERGIES. MEDICATIONS: She is on Triphasil oral contraceptive. PAST MEDICAL HISTORY/PAST SURGICAL HISTORY: She has had a cholecystectomy in July 1999. SOCIAL HISTORY: She is a half ceni-imq-fru smoker for approximately 10 years. She does not drink alcohol and does not use recreational drugs. FAMILY HISTORY: No history of malignancy in her immediate family. She does have an aunt with leukemia. REVIEW OF SYSTEMS: She denies any syncope or seizures. No headache or blurred vision. No chest pain or shortness of breath. No nausea, vomiting, constipation, diarrhea. No abdominal pain, no weight loss, no fevers or chills. PHYSICAL EXAMINATION: Her VITAL SIGNS today: Temperature 98.7, pulse 74, respirations 20, blood pressure 132/68. She is sitting in bed not in acute distress, alert and oriented x 3. HEENT: No scleral icterus. Pupils are equal, round, reactive to light and accommodation. Extraocular movements are intact. Ears, nose, and throat are clear any erythema or exudates. NECK is supple without any lymphadenopathy or bruits. CHEST exam is clear bilaterally. BREAST exam: There are masses or retractions and no axillary lymphadenopathy is appreciated. CARDIOVASCULAR exam: Regular rate and rhythm, no murmurs, gallops, or rubs. ABDOMEN: Soft, nontender, nondistended, positive bowel sounds. EXTREMITIES: There is no clubbing, cyanosis, or edema. She does have any inguinal lymphadenopathy. NEUROLOGICAL exam: She is alert and oriented x 3. Her speech is normal. Strength is 4+ in her right upper extremity and 5/5 in all other extremities. Her DTRs are 3+ in the right upper extremity and 2+ in all her other extremities. She does not have any nystagmus. Her gait was not tested. LABORATORY DATA: Pending. MRI of the head shows 2 lesions in the left parietal area measuring approximately 2 cm, round, and well-defined, with mild surrounding edema (this is my interpretation and not an official interpretation by the radiologist). ASSESSMENT AND PLAN: She has multiple space-occupying lesions in the left parietal area. This is metastatic versus primary brain cancer. We agreed with CT scan of the chest, abdomen, and pelvis to check for primary malignancy. If no other malignancy is found, will need to obtain a brain biopsy. In the meantime, we will start her on Decadron to reduce any inflammation. She does not have any history of seizures. Will discuss with Dr. Jaspal Shelton regarding prophylactic Dilantin use to prevent any seizures. We will follow the patient with you. Plan was discussed with Dr. Shelton. Thank you for allowing us to participate in the care of this pleasant lady. Electronically Authenticated By: Jaspal Shelton M.D. 08/06/2000 11:35:52 Jaspal Shelton M.D. Dictated By: Jasmina Nash M.D. cc: Name: DAGMAR RIVERS Room-Bed/Loc/Type: 1441-01/EA1/IL Admit Date: 06/19/2000 CONSULTATION 1 OF 2 ORAL WORKER * Lachelle Reed MD - 01/16/2014 10:07 PM PASTORAL WORKER Report CON/dlw/[id number] [place], [place] Name: DAGMAR RIVERS MRN/Unit #: [id number] Attending Physician: Carl SHELTON Consulting Physician: Lachelle Reed Date of : 1965 REASON FOR CONSULTATION: Questionable multiple sclerosis. HISTORY OF PRESENT ILLNESS: The patient is a 34-year-old, right-handed, white female who was in her usual state of health until five days ago at which time she had sudden onset of difficulty with her right side. On the first day she noticed that her right foot kept getting caught on the carpet. This progressed the next day to right foot dragging as well as right arm weakness. It was slightly progressive over a three day period. She states that she has had slight improvement since hospitalization in the ability to use her right side. There have been no previous episodes . She denies numbness or paresthesia. There is no history of recent illnesses or travel. The patient denies headache, visual changes, diplopia, vertigo, loss of consciousness, dizziness, dysarthria, dysphagia, aphasia, left-sided weakness or numbness, or bowel or bladder incontinence. She has no prior history of having optic neuritis. Since admission she has had an oncology consult and a survey for peripheral evidence of neoplasm, which has been unremarkable. PAST MEDICAL HISTORY: Her past medical history is benign. She denies hypertension or diabetes mellitus. PAST SURGICAL HISTORY: Cholecystectomy. MEDICATIONS: Include Triphasil as well as Dilantin 200 mg p.o. h.s. ALLERGIES: THERE ARE NO KNOWN DRUG ALLERGIES. SOCIAL HISTORY: She is and has two children. She smokes one pack per day of tobacco for the past 18 years. She drinks rare social alcohol. 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 REVIEW OF SYSTEMS: She denies any recent illnesses, tick bites, fever, chills, weight loss or gain, cough, URI symptoms, abdominal pain, nausea, vomiting, diarrhea, constipation, or urinary symptoms. PHYSICAL EXAMINATION: VITAL SIGNS: Temperature 98.6, pulse 68, respiratory rate 20, blood pressure 118/64. In general, she is a well-developed, well-nourished, white female in no acute distress. Speech is fluent. NECK: Supple without carotid bruits. CARDIOVASCULAR: Regular rate and rhythm. MENTAL STATUS: Alert and oriented times three. Speech is fluent. Cranial nerves reveal visual acuity is 20/20 OU with glasses. Right pupil is 4 mm and reactive, left pupil is 5 mm and reactive. There is an afferent pupillary defect on the left. Visual henderson are full to confrontation. No intranuclear ophthalmoplegia is identified and extraocular movements are full without nystagmus. Fundi reveal discs are sharp bilaterally with questionable optic pallor on the left, face symmetric, sensation intact, masseter strength and function equal. Hearing grossly intact, tongue midline, _palate elevates bilaterally, sternocleidomastoid strength and bulk are equal. Motor examination reveals strength historiography teacher on the right is 4+/5, remainder of muscle strength is 5/5 with normal tone. There is a right pronator drift. Sensation is intact to light touch and pinprick. There is mildly diminished vibration at the right toe. Deep tendon reflexes are asymmetric and brisk on the right compared to the left with negative Lemos's sign. There is nonsustained clonus of four to five beats. There is a right Babinski response. Coordination reveals there is incoordination and slowing of the movements in the right upper extremity. Gait reveals mild circumduction of the right lower extremity. LABORATORY DATA: MRI of the brain done in [place], [place] was reviewed and revealed two fairly large deep left white matter lesions periventricularly with contrast enhancement, minimal edema and no midline shift. Whole body bone scan was within normal limits. Chest x-ray was negative. CT of the abdomen and pelvis revealed diffuse thickening of the sigmoid colon which was nonspecific. CT of the chest revealed an asymmetric soft density involving the superior aspect of the right breast. Mammograms are pending at the time of this dictation. ASSESSMENT: Right-sided weakness with abnormal MRI findings. This is most likely a demyelinating process due to the location, appearance, the patient's age and lack of other medical problems; however, infectious, neoplastic, or vasculitic processes cannot be excluded. This is also the first event that she has had with any prolonged neurologic deficits. PLAN: 1. Proceed with lumbar puncture to evaluate culture, sensitivity, protein, glucose, IgG index, Lyme titers, VDRL and cytology. 2. I will follow. Thank you for allowing me to participate in this very pleasant patient's care. Electronically Authenticated By: Lachelle Reed M.D. 07/05/2000 15:50:35 Lachelle Reed M.D. Dictated By: cc: Name: DAGMAR RIVERS Room-Bed/Loc/Type: 1441-01/EA1/IL Admit Date: 06/19/2000 CONSULTATION 1 OF 2 ORAL WORKER * Provider, MD Jac - 01/16/2014 10:07 PM PASTORAL WORKER Report MATTY/[id number] [place], [place] Name: DAGMAR RIVERS MRN/Unit #: [id number] Attending Physician: Carl SHELTON Consulting Physician: Mario Quiroz Date of : 1965 HISTORY OF PRESENT ILLNESS: This is a 34-year-old female who was basically previously healthy. About 1 week ago she began to develop progressive right-sided weakness starting her leg and then progressing to the arm. She saw her local physician in [place], [place], and had an MRI scan of the head. The MRI scan showed 2 white matter lesions in the left frontal lobe. There was concern these could be tumor. She was referred to [place] to Dr. Seth Shelton. Basically she has had no other symptoms. She denies any headache, nausea, vomiting, loss of consciousness, or other neurological symptoms. She has had no fever, chills, or night sweats. Interestingly, since admission, her right-sided weakness has essentially resolved. She still has a little bit of incoordination of the right hand and some slight difficulty writing, but her strength has returned to normal. Her workup thus far includes a repeat MRI scan which confirms the prior findings. She has had a spinal tap which showed 13 WBCs of which almost all are mononuclear forms, and the other studies on the spinal fluid are negative thus far including glucose of 75 and protein of 37. Her IgG index, oligoclonal bands, etc., are pending. She has also had a CT scan of the abdomen and pelvis, a CT scan of the chest, mammograms, and a cerebral angiogram, all of which are negative. PAST MEDICAL HISTORY: Includes hypercholesterolemia and hiatal hernia. MEDICATIONS: Triphasil, Pepcid p.r.n., and phenytoin was started just since her current admission. She has received no corticosteroids. ALLERGIES: NONE. FAMILY HISTORY: Noncontributory. SOCIAL HISTORY: She is . She lives in [place], [place]. 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 She smokes. REVIEW OF SYSTEMS: Strikingly unremarkable other than what is noted above. PHYSICAL EXAMINATION: GENERAL exam is essentially normal. HEENT, NECK, CHEST and CARDIAC exam are all unremarkable. NEUROLOGIC exam reveals normal strength throughout. She does appear to have some very slight and subtle incoordination of the right hand. IMPRESSION: 34-year-old female with new onset right-sided weakness about 1 week's duration. This is associated with 2 lesions on MRI scan in the left frontal area that are enhancing. The differential diagnosis has included tumor, brain abscess, or some type of a demyelinating lesions (such as atypical multiple sclerosis). She does have some mild pleocytosis on spinal tap. The other studies are pending. She has had almost complete resolution of her symptoms at the present time. She has had no fever. RECOMMENDATIONS: If she does essentially get well symptomatically, I think she would be probably be observed as an outpatient. She will need to be followed. I would not recommend any antibiotics or antiinfective therapy at this point in time. We will await and see what the only spinal fluid findings show. She probably should follow up here in [place] and get another MRI scan once she goes home (? about 1 month). Thank you for allowing us to see this nice young lady. Electronically Authenticated By: Mario Quiroz M.D. 07/07/2000 11:46:14 Mario Quiroz M.D. Dictated By: cc: Name: DAGMAR RIVERS Room-Bed/Loc/Type: 1441-01/EA1/IL Admit Date: 06/19/2000 CONSULTATION 1 OF 2 ORAL WORKER documented in this encounter Miscellaneous Notes * Operative Note - Lachelle Reed MD - 01/16/2014 10:07 PM PASTORAL WORKER Report [id number] [place], [place] Name: DAGMAR RIVERS MRN/Unit #: [id number] Attending Physician: Carl SHELTON Date of : 1965 DATE OF PROCEDURE: 06-25-2000. PROCEDURE PERFORMED: Lumbar puncture. PERFORMING PHYSICIAN: Lachelle Reed M.D. PREOPERATIVE DIAGNOSIS: Right-sided weakness, MRI abnormality. POSTOPERATIVE DIAGNOSIS: Same. DESCRIPTION OF PROCEDURE: After obtaining informed written consent, the patient was placed in the right lateral decubitus position and prepped and draped in the usual sterile fashion; 2 cc of 1% lidocaine were used to anesthetize the L4-5 interspace. A #20 gauge spinal needle was inserted into the L4-5 disk interspace without difficulty. Opening pressure was 220 mm of water. Sixteen cc of clear cerebrospinal fluid were removed without difficulty. The patient tolerated the procedure without difficulty. Electronically Authenticated By: Lachelle Reed M.D. 07/05/2000 15:43:28 Lachelle Reed M.D. Dictated By: cc: Name: DAGMAR RIVERS Room-Bed/Loc/Type: 1441-01/EA1 /IL Admit Date: 06/19/2000 Discharge Date: 06/27/2000 PROCEDURE NOTE 1 OF 1 ORAL WORKER documented in this encounter Plan of Treatment Not on filedocumented as of this encounter Procedures Comments Procedure Name Priority Date/Time Associated Diag nosis [place] HISTOLOGY Routine 06/26/2000 4:30 PM CDT [place] HISTOLOGY Routine 06/26/2000 9:26 AM CDT CULTURE, SPINAL FLUID Routine 06/25/2000 WITH GRAM STAIN 9:05 PM CDT [facility] LABORATORY TESTING Routine 06/25/2000 8:45 PM CDT BRONCH LAVAGE CELL COUNT Routine 06/25/2000 8:45 PM CDT LYME ANTIBODY INDEX Routine 06/25/2000 8:45 PM CDT CELL COUNT CSF Routine 06/25/2000 8:45 PM CDT VDRL CSF Routine 06/25/2000 8:45 PM CDT CSF CELL COUNT AND Routine 06/25/2000 DIFFERENTIAL 8:45 PM CDT CULTURE, CEREBROSPINAL Routine 06/25/2000 FLUID FOR VIRUS 8:45 PM CDT CULTURE, FUNGAL BODY Routine 06/25/2000 FLUID 8:45 PM CDT CULTURE, ACID FAST Routine 06/25/2000 BACTERIA BODY FLUID 8:45 PM CDT CRYPTOCOCCAL ANTIGEN, Routine 06/25/2000 BLOOD 8:45 PM CDT GLUCOSE CSF Routine 06/25/2000 8:45 PM CDT ANGIOTENSON CONVERTING Routine 06/25/2000 ENZYME CSF 8:45 PM CDT MULTIPLE SCLEROSIS PANEL Routine 06/25/2000 CSF 8:45 PM CDT APTT Routine 06/24/2000 2:50 PM CDT IR CEREBRAL ARTERIOGRAM Routine 06/24/2000 12:00 PM CDT NM BONE SCAN WHOLE BODY Routine 06/21/2000 1:00 PM CDT LACTATE DEHYDROGENASE Routine 06/20/2000 7:10 PM CDT CARCINOEMBRYONIC ANTIGEN Routine 06/20/2000 7:10 PM CDT CA 27.29 Routine 06/20/2000 7:[address] HEAD Routine 06/19/2000 9:[address] ABD PELVIS Routine 06/19/2000 9:[address] CHEST Routine 06/19/2000 9:30 PM CDT XR CHEST 2 VIEWS (PA AND Routine 06/19/2000 LATERAL) 5:32 PM CDT URINALYSIS (INCLUDES Routine 06/19/2000 MICROSCOPIC REVIEW, IF 4:20 PM CDT INDICATED) DIFFERENTIAL Routine 06/19/2000 4:18 PM CDT APTT Routine 06/19/2000 4:18 PM CDT PROTHROMBIN TIME/INR Routine 06/19/2000 4:18 PM CDT HCG QUALITATIVE Routine 06/19/2000 4:18 PM CDT COMPREHENSIVE METABOLIC Routine 06/19/2000 PANEL 4:18 PM CDT CBC AND DIFF (MANUAL DIFF Routine 06/19/2000 IF NECESSARY) 4:18 PM CDT documented in this encounter Results * Pathology (06/26/2000 4:30 PM CDT) Only the most recent of 2 results within the time period is included. Specimen Narrative Performed At [facility] Order Comments [id number] F 34 YRS EA 1441 01 L O W C Y T O M E T R Y I N T E R P R E T I V E R E P O R T [id number] LABORATORY NO/ [id number] SPECIMEN/ Cerebrospinal fluid CHRONIC LEUKEMIA/LYMPHOMA PANEL --- Cluster Typ ical Patient Results Designation Reactiv ity (% lymphoid cells) --- B LYMPHOID --- CD19 B cells (earliest ant igen) 7 -- T LYMPHOID --- CD2 T cells, NK cells 93 CD4 helper T cells 61 CD5 T cells 94 CD8 suppressor T cells 36 CD4/CD8 ratio 1.7 --- SPECIAL MARKERS --- CD10 lymphoid progenitor c antoni, GRACY 0 INTERPRETATION/ A limited panel of markers was run in v iew of the limited number of cells available for analysis. There is a pred ominance of T cells with a normal helper/suppressor ratio. There is no im munophenotypic evidence of non-Hodgkin's lymphoma. These findings should be treated with reserve in view of the limitations noted above. [id number], [id number] TRANSCRIBED/ dt ZEINAB MACARIO M.D. 06/27/00 (ELECTRONIC SIGNATURE) This panel was developed and its perfor sybil characteristics determined by [facility]. I t has not been cleared or approved by the US Food and Drug Administration. The FDA has determined that such clearance or approval is not necessary. Performing Organization Address City/State/[facility] Ph one Number [id number] [phone] [place], [place] [address] [facility] * Culture, Spinal Fluid with Gram Stain (06/25/2000 9:05 PM CDT) Specimen CSF Narrative Performed At Report [facility] [id number] F 34 YRS EA 144 01 BACTERIOLOGY PROCEDURE/ CSF CULTURE W/GRAM STAIN COLLECTED/ 06/25/002104 SOURCE/ CEREBROSPINAL FLUID RECEIVED/ 06/25/002104 CSF STARTED/ 06/25/002134 STAINS/SMEARS---- GRAM STAIN 06/25/002208 No organisms seen No polymorphonuclear leukocytes seen FINAL REPORT--- FINAL REPORT 06/29/00 1010 No Growth at 3 days Performing Organization Address City/State/Zipcode Ph one Number [facility] [phone] [place], [place] [address] [facility] * LYME ANTIBODY INDEX (06/25/2000 8:45 PM CDT) Pathologist [facility] ALBUMIN INDEX 5.2 0.0 - 8.9 [facility] CSF IGG 4.8 0.5 - 6.1 MG/DL SUNQUEST CSF IGM .09 0.02 - 0.20 MG/DL SUNQUEST SERUM IGG 737 600 - 1600 MG/DL SUNQUEST SERUM IGM 88 40 - 250 MG/DL SUNQUEST IGG INDEX 1.25 (H) 0.00 - 0.69 SUNQUEST IGM INDEX .20 (H) 0.00 - 0.09 SUNQUEST LYME IGG CSF <0.8 <0.8 SUNQUEST LYME IGG NOT CALC f (A) 0.0 - 0.9 SUNQUEST ANTIBODY IN LYME IGG SERUM .3 0.0 - 0.8 SUNQUEST LYME IGM SERUM <15 <15 SUNQUEST LYME IGM NOT CALC f (A) 0.00 - 0.90 SUNQUEST ANTIBODY IN LYME IGM CSF <15 <15 SUNQUEST Specimen Blood Narrative Performed At Report [facility] Comments and Normal Ranges for Com ponent LYMIGG NDX Not calculated because elevated specifi c antibody was not found in both the CSF and serum. Comments and Normal Ranges for Com ponent LYMIGM NDX Not calculated because elevated specifi c antibody was not found in both the CSF and serum. Performing Organization Address [facility] one Number SLRL [address] [place], [place] [address] SUNQUEST * Misc Laboratory Testing (06/25/2000 8:45 PM CDT) Specimen Other Narrative Performed At Report SUNQUEST TEST NAME/ TOXOPLASMA IgM JYOTI, CSF RESULT/ < 0.8 EIA Units NO ESTABLISHED REFERENCE RANGE TEST PERFORMED BY [facility] Performing [facility] one Number SLRL [address] [place] [phone] SUNQUEST * CELL COUNT CSF (06/25/2000 8:45 PM CDT) CSF Color COLRLESS SUNQUEST CSF Clarity CLEAR SUNQUEST CSF ABSENT SUNQUEST Xanthochromia CSF WBC Count 13 (H) 0 - 5 /UL SUNQUEST CSF RBC Count 2 /UL SUNQUEST Tube Number, 4 SUNQUEST CSF Specimen CSF Performing [facility] one Number SLRL [address] [place] [phone] 11 SUNQUEST * Multiple Sclerosis Panel CSF (06/25/2000 8:45 PM CDT) Protein CSF 37 15 - 60 MG/DL SUNQUEST Immunoglobulin 5.8 (H) 1.1 - 5.5 MG/DL SUNQUEST G CSF Albumin CSF 17.4 9.0 - 32.0 MG/DL SUNQUEST IgG/Albumin 0.333 (H) 0.066 - 0.270 SUNQUEST Ratio Albumin 4.3 3.6 - 4.6 G/DL SUNQUEST Immunoglobulin 816 614 - 1286 MG/DL SUNQUEST G Oligoclonal ABSENT SUNQUEST Bands PREALBUMIN 4 1 - 8 % SUNQUEST ALBUMIN 55 50 - 80 % SUNQUEST ALPHA 1 6 2 - 8 % SUNQUEST ALPHA 2 7 2 - 12 % SUNQUEST BETA 16 8 - 18 % SUNQUEST GAMMA 13 (H) 3 - 12 % SUNQUEST Specimen CSF Performing Organization [facility] one Number SLRL [address] [place], [place] [address] SUNQUEST * Glucose CSF (06/25/2000 8:45 PM CDT) Glucose CSF 75 40 - 80 MG/DL SUNQUEST Specimen CSF Performing Organization [facility] one Number SLRL [address] [place], [place] [address] SUNQUEST * CSF Cell Count and Differential (06/25/2000 8:45 PM CDT) CSF Lymphs 96 (H) 40 - 80 % SUNQUEST CSF 4 (L) 15 - 45 % SUNQUEST Monocytes/Macro phages Specimen CSF Performing [facility] one Number [address]RL [address] [place], [place] [address] SUNQUEST * MYELIN BASIC PROTEIN (06/25/2000 8:45 PM CDT) MYELIN BASIC 1.2 0.0 - 4.0 NG/ML SUNQUEST PROTEIN Specimen CSF Performing [facility] one Number [address]RL [address] [place] [phone] 11 SUNQUEST * Angiotenson Converting Enzyme CSF (06/25/2000 8:45 PM CDT) Angio Convert 4 0 - 14 UNITS SUNQUEST Enzyme, CSF Specimen Blood Performing [facility] one Number RL [address] [place] [phone] SUNQUEST * Cryptococcal Antigen (06/25/2000 8:45 PM CDT) Specimen Blood Narrative Performed At Report [place] [id number] F 34 YRS EA 1441 01 MYCOLOGY PROCEDURE/ CRYPTOCOCCAL ANTIGEN COLLECTED/ 06/25/00 2045 SOURCE/ CEREBROSPINAL FLUID RECEIVED/ 06/25/00 2105 CSF STARTED/ 06/25/00 2135 FINAL REPORT--- FINAL REPORT 06/26/00 1640 Negative for CRYPTOCOCCAL ANTIGEN Performing [facility] one Number [address]RL [address] [place], [place] [address] SUNQUEST * VDRL CSF (06/25/2000 8:45 PM CDT) VDRL CSF NONREACT NONREACT [facility] Specimen CSF Performing Organization Address [facility] one Number SLRL [address] [place] [phone] PIQUAQUEST * Culture, Cerebrospinal Fluid for Virus (06/25/2000 8:45 PM CDT) Specimen CSF Narrative Performed At Report [place] [id number] F 34 YRS EA 1441 01 VIROLOGY PROCEDURE/ VIRAL CSF CULTURE COLLECTED/ 06/25/002044 SOURCE/ CEREBROSPINAL FLUID RECEIVED/ 06/25/002104 STARTED/ 06/26/00605 FINAL REPORT--- FINAL REPORT 07/05/00 1652 NO VIRUS ISOLATED Performing Organization Address City/[facility] Ph one Number [address]RL [address] [place] [phone] PIQUAQUEST * Culture, Acid Fast Bacteria Body Fluid (06/25/2000 8:45 PM CDT) Specimen Other Narrative Performed At Report [place] [id number] F 35 YRS EA 1441 01 MYCOLOGY PROCEDURE/ ACID FAST STERILE BODY FLUID COLLECTED/ 06/25/002044 SOURCE/ CEREBROSPINAL FLUID RECEIVED/ 06/25/002133 CSF STARTED/ 06/25/002133 STAINS/SMEARS---- AFB STAIN 06/26/00 1506 No ACID FAST BACILLI seen on fluorescen t stain. Mycobacterial culture in progress. FINAL REPORT--- FINAL REPORT 08/07/00 1430 No ACID FAST BACILLI isolated at 6 week s. Performing Organization [facility] Ph one Number [address]RL [address] [place], [place] [address] SUNQUEST * Culture, Fungal Body Fluid (06/25/2000 8:45 PM CDT) Specimen Other Narrative Performed At Report [facility] [id number] F 35 YRS EA 1441 01 MYCOLOGY PROCEDURE/ FUNGAL STERILE BODY FLUID COLLECTED/ 06/25/002044 SOURCE/ CEREBROSPINAL FLUID RECEIVED/ 06/25/002133 CSF STARTED/ 06/25/002133 FINAL REPORT--- FINAL REPORT 08/07/00 1152 No FUNGAL growth at 6 weeks. Performing Organization [facility] Ph one Number [address]RL [address] [place], [place] [address] SUNQUEST * APTT (06/24/2000 2:50 PM CDT) Only the most recent of 2 results within the time period is included. APTT 24 21 - 33 SEC SUNQUEST Specimen Blood Performing Organization Address [facility] Ph one Number [address]RL [address] [place], [place] [address] SUNQUEST * IR Cerebral Arteriogram (06/24/2000 12:00 PM CDT) Specimen Narrative Performed At Report [facility] RAD/jr/[id number] [place], [place] Name: DAGMAR RIVERS Date of B irth: [birth year] Age: 34Y Room-Bed/Loca tion: 1440-11/ Check-In #: [id number] Attending Physician: Carl vivar Diagnosis: Procedure: SP CEREBRAL ARTERIOGRAPHY; 45368 Reason for Exam: ;;DX Medi lena Record #: [id number] Requested By: Carl SHELTON Ex am Ordered: 06/24/2000 07:00 Brett #/Jacket #: [id number] Procedure: CEREBRAL ARTERIOGRAM Date/Time: 06/24/2000 1302 HOUR S Reason for Exam: Brain lesion. Cindy luate vascular structures. Metastatic disease. These images and this report have been reviewed and edited by the staff radiologist. The patient was prepped and draped in t he usual sterile fashion and placed in the supine position on the angiogram table. The patient was informed of the risks and benefits of the procedure and agreed to the procedure. Consent was placed on the chart. Selective catheterization of the right internal carotid artery demonstrates no vascular anomalies. Selective injection of the left interna l carotid artery appeared unremarkable. Injection of the intracranial structure s on the right side demonstrates no evidence of stenosis, AVM, branch occlu camilo. Injection of the intracranial structure s on the left side demonstrates no evidence of AVM, stenosis and/or branch occlusion. Injection of the left vertebral artery demonstrated no anomalies of the posterior circulation. There was no e vidence of arteriovenous malformation. IMPRESSION: Essentially negative exam of the brain without evidence of a vascular variant. Electronically Authenticated By: Janes Costa M.D. 06/25/2000 13: 37:04 Janes Costa M.D. Dictated By: Víctor Chowdhury M.D. T: 17:58:21 cc: Name: DAGMAR RIVERS Room-Bed/ Loc/Type: 1440-11/EA1 /QUINN Admit Date: 06/19/2000 MEDICAL IMAGING CONSULTATION 1 OF 1 Procedure Note Interface, Rad Conversion - 01/18/2014 3:45 PM PASTORAL WORKER Report RAD/jr/[id number] [place], [place] Name: DAGMAR RIVERS Date of : [birth year] Age: 34Y Room-Bed/Location: 1440-11/ Check-In #: [id number] Attending Physician: Carl SHELTON Admitting Diagnosis: Procedure: SP CEREBRAL ARTERIOGRAPHY; 31340 Reason for Exam: ;;DX Requested By: Carl SHELTON Exam Ordered: 06/24/2000 07:00 Brett #/Jacket #: [id number] Procedure: CEREBRAL ARTERIOGRAM Date/Time: 06/24/2000 1302 HOURS Reason for Exam: Brain lesion. Evaluate vascular structures. Metastatic disease. These images and this report have been reviewed and edited by the staff radiologist. The patient was prepped and draped in the usual sterile fashion and placed in the supine position on the angiogram table. The patient was informed of the risks and benefits of the procedure and agreed to the procedure. Consent was placed on the chart. Selective catheterization of the right internal carotid artery demonstrates no vascular anomalies. Selective injection of the left internal carotid artery appeared unremarkable. Injection of the intracranial structures on the right side demonstrates no evidence of stenosis, AVM, branch occlusion. Injection of the intracranial structures on the left side demonstrates no evidence of AVM, stenosis and/or branch occlusion. Injection of the left vertebral artery demonstrated no anomalies of the posterior circulation. There was no evidence of arteriovenous malformation. IMPRESSION: Essentially negative exam of the brain without evidence of a vascular variant. Electronically Authenticated By: Janes Costa M.D. 06/25/2000 13:37:04 Janes Costa M.D. Dictated By: Víctor Chowdhury M.D. cc: Name: DAGMAR RIVERS Room-Bed/Loc/Type: 1440-11/ALICIA1 /QUINN Admit Date: 06/19/2000 MEDICAL IMAGING CONSULTATION 1 OF 1 Performing Organization Address City/State/Zipcode Ph one Number TELMA * NM Bone Scan whole body (06/21/2000 1:00 PM CDT) Specimen Narrative Performed At Report [facility] RAD/jaspal/137216 [place], [place] Name: DAGMAR RIVERS Date of B irth: [birth year] Age: 34Y Room-Bed/Loca tion: 14411-18/ Check-In #: [id number] Attending Physician: Carl vivar Diagnosis: Procedure: NM BONE SCAN WHOLE BODY; 3 0 Reason for Exam: ;;POSS BONE CA Requested By: Carl SHELTON Ex am Ordered: 06/21/2000 09:10 Brett #/Jacket #: [id number] Procedure: WHOLE BODY BONE SCAN Date/Time: 06/21/2000 Reason for Exam: Brain cancer; possi ble bone cancer. These images and this report have been reviewed and edited by the staff radiologist. Following the intravenous administratio n of 26.4 mCi of technetium 99M labeled MDP, whole body anterior and po sterior images were obtained. There is normal physiologic radiotracer uptake seen in the kidneys, bladder, and bones. No abnormal areas of increased uptake are seen. No area of photopenia are seen. IMPRESSION: Unremarkable whole body bone scan. Electronically Authenticated By: Pepe Salter M.D. 06/21/2000 15:59 :36 Pepe Salter M.D. Dictated By: Jon Tavares MD T: 15:50:54 cc: Name: DAGMAR RIVERS Room-Bed/ Loc/Type: 1441-/EA1 /[place] Admit Date: 06/19/2000 MEDICAL IMAGING CONSULTATION 1 OF 1 1 Procedure Note Interface, Rad Conversion - 01/18/2014 3:47 PM PASTORAL WORKER Report [facility]//[id number] [place], [place] Name: DAGMAR RIVERS Date of : [birth year] Age: 34Y Room-Bed/Location: 1440-11/ Check-In #: [id number] Attending Physician: Carl SHELTON Admitting Diagnosis: Procedure: NM BONE SCAN WHOLE BODY; 69302 Reason for Exam: ;;POSS BONE CA Requested By: Carl WEBBERSETH NIKITA Exam Ordered: 06/21/2000 09:10 Brett #/Jacket #: [id number] Procedure: WHOLE BODY BONE SCAN Date/Time: 06/21/2000 Reason for Exam: Brain cancer; possible bone cancer. These images and this report have been reviewed and edited by the staff radiologist. Following the intravenous administration of 26.4 mCi of technetium 99M labeled MDP, whole body anterior and posterior images were obtained. There is normal physiologic radiotracer uptake seen in the kidneys, bladder, and bones. No abnormal areas of increased uptake are seen. No area of photopenia are seen. IMPRESSION: Unremarkable whole body bone scan. Electronically Authenticated By: Pepe Salter M.D. 06/21/2000 15:59:36 Pepe Salter M.D. Dictated By: Jon Tavares MD cc: Name: DAGMAR RIVERS Room-Bed/Loc/Type: [facility] /[place] Admit Date: 06/19/2000 MEDICAL IMAGING CONSULTATION 1 OF 1 1 Performing Organization Address City/[facility] one Number [facility] * Lactate Dehydrogenase (06/20/2000 7:10 PM CDT) Lactate 803 (H) 300 - 600 IU/L SUNQUEST Dehydrogenase Specimen Blood Performing Organization Address City/[facility] one Number SLRL [address] [place], [place] [address] SUNQUEST * Carcinoembryonic Antigen (06/20/2000 7:10 PM CDT) Carcinoembryoni 1.7 0.0 - 5.0 NG/ML SUNQUEST c Antigen Specimen Blood Performing Organization Address [facility] one Number SLRL [address] [place], [place] [address] SUNQUEST * CA 27.29 (06/20/2000 7:10 PM CDT) CA 27.29 19.1 0.0 - 38.0 U/ML SUNQUEST Specimen Blood Performing Organization Address [facility] one Number [address]RL [address] [place] [address] 11 SUNQUEST * CT Head (06/19/2000 9:31 PM CDT) Specimen Narrative Performed At Report [facility] ZAMORA/trish/139453 [place], [place] Name: DAGMAR RIVERS Date of B irth: [birth year] Age: 34Y Room-Bed/Loca tion: 14411-18/ Check-In #: [id number] Attending Physician: Carl vivar Diagnosis: Procedure: CT HEAD; 33125 Reason for Exam: ;;BRAIN TUMORS Requested By: Carl SHELTON Ex am Ordered: 06/19/2000 15:11 Brett #/Jacket #: [id number] Procedure: CT HEAD WITH AND WITHOUT CONTRAST Date/Time: 06/19/2000 Reason for Exam: Right arm numbness and weakness. These images and this report have been reviewed and edited by the staff radiologist. Multiple computerized tomography images were obtained from the skull base through the vertex at 5 mm intervals be fore and after the administration of 150 cc of Omnipaque 240. Cortical sulci, ventricles and cerebros lesly fluid spaces appear normal in size and are symmetric. There is 1.5 cm rounded enhancing mass involving the left frontoparietal region involvin g the centrum semiovale. A second more ring-enhancing lesion is noted in the left frontal lobe which is larger and measures approximately 2.3 c m. There is minimal surrounding edema. No other definite enhancing ma sses are noted. There are no extra-axial fluid collections. There is no evidence of acute intracranial hemorrhage or infarction. The osseous structures are intact. Visualized portions of the mastoid air cells, para nasal sinuses and orbits are unremarkable. IMPRESSION: Two ring-enhancing masses i nvolving the left frontal lobe and the homogeneous enhancing mass involvin g the left frontoparietal centrum semiovale, likely representing metastas es. Smaller lesions cannot be excluded and if clinically indicated, a n MRI may be beneficial. Electronically Authenticated By: Harmeet Jane M.D. 06/21/2000 07:35:33 Harmeet Jane M.D. Dictated By: Wellington Patterson M.D. T: 000 08:38:42 cc: Name: DAGMAR RIVERS Room-Bed/ Loc/Type: [address] [place] [address]/EA1 /[place] Admit Date: 06/19/2000 MEDICAL IMAGING CONSULTATION 1 Procedure Note Interface, Rad Conversion - 01/18/2014 3:47 PM PASTORAL WORKER Report RAD/vs/[id number] [place], [place] Name: DAGMAR RIVERS Date of : [birth year] Age: 34Y Room-Bed/Location: [facility]/ Check-In #: [id number] Attending Physician: Carl SHELTON Admitting Diagnosis: Procedure: CT HEAD; 54915 Reason for Exam: ;;BRAIN TUMORS Requested By: Carl SHELTON Exam Ordered: 06/19/2000 15:11 Brett #/Jacket #: [id number] Procedure: CT HEAD WITH AND WITHOUT CONTRAST Date/Time: 06/19/2000 Reason for Exam: Right arm numbness and weakness. These images and this report have been reviewed and edited by the staff radiologist. Multiple computerized tomography images were obtained from the skull base through the vertex at 5 mm intervals before and after the administration of 150 cc of Omnipaque 240. Cortical sulci, ventricles and cerebrospinal fluid spaces appear normal in size and are symmetric. There is 1.5 cm rounded enhancing mass involving the left frontoparietal region involving the centrum semiovale. A second more ring-enhancing lesion is noted in the left frontal lobe which is larger and measures approximately 2.3 cm. There is minimal surrounding edema. No other definite enhancing masses are noted. There are no extra-axial fluid collections. There is no evidence of acute intracranial hemorrhage or infarction. The osseous structures are intact. Visualized portions of the mastoid air cells, paranasal sinuses and orbits are unremarkable. IMPRESSION: Two ring-enhancing masses involving the left frontal lobe and the homogeneous enhancing mass involving the left frontoparietal centrum semiovale, likely representing metastases. Smaller lesions cannot be excluded and if clinically indicated, an MRI may be beneficial. Electronically Authenticated By: Harmeet Jane M.D. 06/21/2000 07:35:33 Harmeet Jane M.D. Dictated By: Wellington Patterson M.D. cc: Name: DAGMAR RIVERS Room-Bed/Loc/Type: 1441/EA1 /[place] Admit Date: 06/19/2000 MEDICAL IMAGING CONSULTATION 1 OF 1 1 Performing Organization Address City/[facility] Ph one Number TELMA * CT Abd Pelvis (06/19/2000 9:31 PM CDT) Specimen Narrative Performed At Report [facility] RAD/chiquisr/136877 [place], [place] Name: DAGMAR RIVERS Date of B irth: [birth year] Age: 34Y Room-Bed/Loca tion: 14411-18/ Check-In #: [id number] Attending Physician: Carl vivar Diagnosis: Procedure: CT ABD/PELVIS; 85946 Reason for Exam: ;;R/O METS Requested By: Carl SHELTON Ex am Ordered: 06/19/2000 15:12 Brett #/Jacket #: [id number] Procedure: Date/Time: Reason for Exam: These images and this report have been reviewed and edited by the staff radiologist. NO DICTATION....... Janes Husain M.D. Dictated By: Wellington Patterson M.D. T: 08:28:53 cc: Name: DAGMAR RIVERS Room-Bed/ Loc/Type: [address] [place] [address]/EA1 /[place] Admit Date: 06/19/2000 MEDICAL IMAGING CONSULTATION 1 Procedure Note Interface, Rad Conversion - 01/18/2014 3:47 PM PASTORAL WORKER Report RAD/ldr/762823 [place], [place] Name: DAGMAR RIVERS Date of : [birth year] Age: 34Y Room-Bed/Location: [address] [place] [address]/ Check-In #: [id number] Attending Physician: Carl SHELTON Admitting Diagnosis: Procedure: CT ABD/PELVIS; 78052 Reason for Exam: ;;R/O METS Requested By: Carl SHELTON Exam Ordered: 06/19/2000 15:12 Brett #/Jacket #: [id number] Procedure: Date/Time: Reason for Exam: These images and this report have been reviewed and edited by the staff radiologist. NO DICTATION....... Janes Husain M.D. Dictated By: Wellington Patterson M.D. cc: Name: DAGMAR RIVERS Room-Bed/Loc/Type: 144-/EA1 /[place] Admit Date: 06/19/2000 MEDICAL IMAGING CONSULTATION 1 Performing Organization Address City[facility]State[facility] one Number [facility] * CT Chest (06/19/2000 9:30 PM CDT) Specimen Narrative Performed At Report [facility] RAD/ldr/375591 [place], [place] Name: DAGMAR RIVERS Date of B irth: [birth year] Age: 34Y Room-Bed/Loca tion: 1440-11/ Check-In #: [id number] Attending Physician: Carl vivar Diagnosis: Procedure: CT THORAX; 81446 Reason for Exam: ;;R/O METS Requested By: Carl SETH CHERRYON Ex am Ordered: 06/19/2000 15:12 Brett #/Jacket #: [id number] Procedure: CT OF CHEST Date/Time: 06/19/00 Reason for Exam: Brain metastases, qu estion primary. These images and this report have been reviewed and edited by the staff radiologist. Helical acquisition was obtained throug h the chest after the administration of 150 cc of Omnipaque 240 IV contrast. The heart and vascular structures are unremarkable. There is no evidenc e of hilar, mediastinal or axillary lymphadenopathy. The lungs are clear. There is no evidence of mass or infiltrate. There are no pleural effu sions. There is asymmetric density involving the right breast superiorly. The osseous structures are unremarkable. IMPRESSION: Unremarkable CT of the c hest, with the exception of an asymmetric soft tissue density involvin g the superior aspect of the right breast. Correlation with mammograms i s recommended as breast mass cannot be excluded. Electronically Authenticated By: Janes Husain M.D. 06/20/2000 08:05:3 6 Janes Husain M.D. Dictated By: Wellington Patterson M.D. T: 000 07:32:57 cc: Name: DAGMAR RIVERS Room-Bed/ Loc/Type: 14411-18/EA1 /[place] Admit Date: 06/19/2000 MEDICAL IMAGING CONSULTATION 1 OF 1 1 Procedure Note Interface, Rad Conversion - 01/18/2014 3:47 PM PASTORAL WORKER Report RAD/ldr/239193 [place], [place] Name: DAGMAR RIVERS Date of : [birth year] Age: 34Y Room-Bed/Location: 1441-01/ Check-In #: [id number] Attending Physician: Carl SHELTON Admitting Diagnosis: Procedure: CT THORAX; 30635 Reason for Exam: ;;R/O METS Requested By: Carl SHELTON Exam Ordered: 06/19/2000 15:12 Brett #/Jacket #: [id number] Procedure: CT OF CHEST Date/Time: 06/19/00 Reason for Exam: Brain metastases, question primary. These images and this report have been reviewed and edited by the staff radiologist. Helical acquisition was obtained through the chest after the administration of 150 cc of Omnipaque 240 IV contrast. The heart and vascular structures are unremarkable. There is no evidence of hilar, mediastinal or axillary lymphadenopathy. The lungs are clear. There is no evidence of mass or infiltrate. There are no pleural effusions. There is asymmetric density involving the right breast superiorly. The osseous structures are unremarkable. IMPRESSION: Unremarkable CT of the chest, with the exception of an asymmetric soft tissue density involving the superior aspect of the right breast. Correlation with mammograms is recommended as breast mass cannot be excluded. Electronically Authenticated By: Janes Husain M.D. 06/20/2000 08:05:36 Janes Husain M.D. Dictated By: Wellington Patterson M.D. cc: Name: DAGMAR RIVERS Room-Bed/Loc/Type: 14411-18/EA1 /[place] Admit Date: 06/19/2000 MEDICAL IMAGING CONSULTATION 1 OF 1 1 Performing Organization Address [facility] Ph one Number [facility] * XR Chest 2 views (PA and lateral) (06/19/2000 5:32 PM CDT) Specimen Narrative Performed At Report [facility] RAD/ldr/482955 [place], [place] Name: DAGMAR RIVERS Date of B irth: [birth year] Age: 34Y Room-Bed/Loca tion: 1440-11/ Check-In #: [id number] Attending Physician: Carl vivar Diagnosis: Procedure: DX CHEST 2 VIEWS; 34310 Reason for Exam: ;;COUGH M edical Record #: [id number] Requested By: Carl SHELTON Ex am Ordered: 06/19/2000 15:53 Brett #/Jacket #: [id number] Procedure: CHEST Date/Time: Reason for Exam: Brain tumor. PA and lateral images are obtained on . The heart and mediastinum are unremarkable. The diaphragms are smooth. The lungs are clear. IMPRESSION: Negative chest. Electronically Authenticated By: Janes Husain M.D. 06/20/2000 08:04:2 2 Janes Husain M.D. Dictated By: T: 000 06:44:03 cc: Name: DAGMAR RIVERS Room-Bed/ Loc/Type: [facility]/EA1 /[place] Admit Date: 06/19/2000 MEDICAL IMAGING CONSULTATION 1 OF 1 1 Procedure Note Interface, Rad Conversion - 01/18/2014 3:47 PM PASTORAL WORKER Report RAD/ldr/720157 [place], [place] Name: DAGMAR RIVERS Date of : [birth year] Age: 34Y Room-Bed/Location: [facility]/ Check-In #: [id number] Attending Physician: Carl SHELTON Admitting Diagnosis: Procedure: DX CHEST 2 VIEWS; 92113 Reason for Exam: ;;COUGH Requested By: Carl SHELTON Exam Ordered: 06/19/2000 15:53 Brett #/Jacket #: [id number] Procedure: CHEST Date/Time: Reason for Exam: Brain tumor. PA and lateral images are obtained on 06/19/00. The heart and mediastinum are unremarkable. The diaphragms are smooth. The lungs are clear. IMPRESSION: Negative chest. Electronically Authenticated By: Janes Husain M.D. 06/20/2000 08:04:22 Janes Husain M.D. Dictated By: cc: Name: DAGMAR RIVERS Room-Bed/Loc/Type: 1441-01/EA1 /[place] Admit Date: 06/19/2000 MEDICAL IMAGING CONSULTATION 1 OF 1 1 Performing Organization Address [facility] one Number TELMA * Urinalysis (06/19/2000 4:20 PM CDT) Appearance, YELLOW SUNQUEST Urine Specific <=1.005 <1.030 SUNQUEST [place], [facility]A PH Urine 7.5 5.0 - 8.0 SUNQUEST Hemoglobin TRACE NEGATIVE SUNQUEST Urine Ketones Urine NEGATIVE NEGATIVE SUNQUEST Glucose Urine NEGATIVE NEGATIVE SUNQUEST Protein Urine NEGATIVE NEGATIVE SUNQUEST Qual Leukocyte NEGATIVE NEGATIVE SUNQUEST Esterase Urobilinogen NEGATIVE NEGATIVE SUNQUEST Urine Bilirubin Urine NEGATIVE NEGATIVE SUNQUEST Specimen Urine Performing Organization Address [facility] one Number RL [address] [address] 11 SUNQUEST * DIFFERENTIAL (06/19/2000 4:18 PM CDT) % Neutrophils 72 45 - 78 % SUNQUEST %Lymphocytes 22 15 - 47 % SUNQUEST %Monocytes 6 0 - 12 % SUNQUEST %Eosinophils 0 0 - 7 % SUNQUEST %Basophils 0 0 - 2 % SUNQUEST # Granulocytes 6.0 1.7 - 6.8 TH/UL SUNQUEST # Lymphocytes 1.8 1.0 - 3.3 TH/UL SUNQUEST # Monocytes 0.5 0.2 - 0.9 TH/UL SUNQUEST # Eosinophils 0.0 0.0 - 0.4 TH/UL SUNQUEST # Basophils 0.0 0.0 - 0.2 TH/UL SUNQUEST Specimen Blood Performing Organization Address [facility] one Number SLRL [address] [address] 11 SUNQUEST * Comprehensive Metabolic Panel (06/19/2000 4:18 PM CDT) Albumin 4.0 3.6 - 4.6 G/DL SUNQUEST Aspartate 17 (L) 20 - 50 IU/L SUNQUEST Aminotransferas e Bilirubin Total 0.3 0.0 - 1.1 MG/DL SUNQUEST Protein Total 7.5 6.5 - 8.2 G/DL SUNQUEST Serum Calcium 9.8 8.8 - 10.5 MG/DL SUNQUEST Creatinine 0.6 0.5 - 1.5 MG/DL SUNQUEST Glucose 87 65 - 110 MG/DL SUNQUEST Alkaline 80 40 - 125 IU/L SUNQUEST Phosphatase Sodium 144 134 - 144 MEQ/L SUNQUEST Potassium 4.0 3.6 - 5.0 MEQ/L SUNQUEST Chloride 109 (H) 98 - 107 MEQ/L SUNQUEST Carbon Dioxide 24 23 - 32 MEQ/L SUNQUEST Blood Urea 6 5 - 20 MG/DL SUNQUEST Nitrogen Anion Gap 11 3 - 15 SUNQUEST Alanine 18 (L) 20 - 60 IU/L SUNQUEST Aminotransferas e Specimen Blood Performing Organization Address [facility] one Number SLRL [address] [address] 11 SUNQUEST * CBC and Diff (manual diff if necessary) (06/19/2000 4:18 PM CDT) WBC 8.3 4.0 - 11.0 TH/UL SUNQUEST RBC 4.47 4.00 - 5.00 MIL/UL SUNQUEST Hemoglobin 13.4 12.0 - 15.0 G/DL SUNQUEST Hematocrit 39 36 - 45 % SUNQUEST MCV 88 80 - 99 FL SUNQUEST MCH 30 27 - 34 PG SUNQUEST MCHC 34 32 - 36 % SUNQUEST RDW 13.1 <14.5 % SUNQUEST Platelet Count 340 140 - 400 TH/UL SUNQUEST Specimen Blood Performing Organization Address [facility] one Number [address]RL [address] [address] 11 SUNQUEST * Prothrombin Time/INR (06/19/2000 4:18 PM CDT) Protime 11.9 10.3 - 13.0 SEC SUNQUEST INR 1.1 SUNQUEST Specimen Blood Performing Organization Address [facility] one Number [address]RL [address] [address] 11 SUNQUEST * HCG Qualitative (06/19/2000 4:18 PM CDT) HCG Serum NEGATIVE NEGATIVE SUNQUEST Qualitative Specimen Blood Performing Organization Address City/State/Zipcode Ph one Number SLRL [address] [place], [place] [address] SUNQUEST documented in this encounter Visit Diagnoses Not on filedocumented in this encounter
--- OUTSIDE RECORDS SUMMARY | 2020-06-01 06:21 | XMS REPORT | Encounter Summary ---
Author [facility] Address Unknown Phone Unavailable Care Team Providers Care Spot Sprayer Name Role Phone PCP Unavailable Encounter Details Care Team Description Date Type Department Lachelle Reed MD [address] [id number] [facility] [id number] [place], [place] [id number] Social History Date Tobacco Use Types Packs/Day [...] Procedure Name Priority Date/Time Associated Diag nosis DIFFERENTIAL Routine 01/16/2002 11:40 AM PINION POLISHER RHEUMATOID FACTOR Routine 01/16/2002 11:40 AM PINION POLISHER ERYTHROCYTE SEDIMENTATION Routine 01/16/2002 RATE 11:40 AM PINION POLISHER COMPREHENSIVE METABOLIC Routine 01/16/2002 PANEL 11:40 AM PINION POLISHER CBC AND DIFF (MANUAL DIFF Routine 01/16/2002 IF NECESSARY) 11:40 AM PINION POLISHER NICKY QUALITATIVE Routine 01/16/2002 11:40 AM PINION POLISHER COMPLEMENT PROFILE Routine 01/16/2002 11:40 AM PINION POLISHER documented in this encounter Results * Comprehensive Metabolic Panel (01/16/2002 11:40 AM PINION POLISHER) Albumin 4.3 3.6 - 4.6 G/DL SUNQUEST Aspartate 24 20 - 50 IU/L SUNQUEST Aminotransferas e Bilirubin Total 0.2 0.0 - 1.1 MG/DL SUNQUEST Protein Total 7.3 6.5 - 8.2 G/DL SUNQUEST Serum Calcium 9.3 8.8 - 10.5 MG/DL SUNQUEST Creatinine 0.7 0.5 - 1.5 MG/DL SUNQUEST Glucose 83 65 - 110 MG/DL SUNQUEST Alkaline 81 40 - 125 IU/L SUNQUEST Phosphatase Sodium 142 134 - 144 MEQ/L SUNQUEST Potassium 4.4 3.6 - 5.0 MEQ/L SUNQUEST Chloride 105 98 - 107 MEQ/L SUNQUEST Carbon Dioxide 25 23 - 32 MEQ/L SUNQUEST Blood Urea 9 5 - 20 MG/DL SUNQUEST Nitrogen Anion Gap 12 3 - 15 SUNQUEST Alanine 12 (L) 20 - 60 IU/L SUNQUEST Aminotransferas e Specimen Blood Performing Organization Address [facility] one Number SLRL [address] [address] SUNQUEST * CBC and Diff (manual diff if necessary) (01/16/2002 11:40 AM PINION POLISHER) Pathologist [facility] WBC 11.0 4.0 - 11.0 TH/UL SUNQUEST RBC 4.75 4.00 - 5.00 MIL/UL SUNQUEST Hemoglobin 14.5 12.0 - 15.0 G/DL SUNQUEST Hematocrit 43 36 - 45 % SUNQUEST MCV 90 80 - 99 FL SUNQUEST MCH 31 27 - 34 PG SUNQUEST MCHC 34 32 - 36 % SUNQUEST RDW 13.2 <14.5 % SUNQUEST Platelet Count 364 140 - 400 TH/UL SUNQUEST Specimen Blood Performing Organization Address [facility] one Number SLRL [address] [address] SUNQUEST * NICKY Qualitative (01/16/2002 11:40 AM PINION POLISHER) Pathologist [facility] NICKY Qualitative NEGATIVE NEGATIVE SUNQUEST Specimen Blood Performing Organization Address [facility] one Number SLRL [address] [address] SUNQUEST * DIFFERENTIAL (01/16/2002 11:40 AM PINION POLISHER) [facility] % Neutrophils 76 45 - 78 % SUNQUEST %Lymphocytes 18 15 - 47 % SUNQUEST %Monocytes 5 0 - 12 % SUNQUEST %Eosinophils 1 0 - 7 % SUNQUEST %Basophils 0 0 - 2 % SUNQUEST # Granulocytes 8.4 (H) 1.7 - 6.8 TH/UL SUNQUEST # Lymphocytes 2.0 1.0 - 3.3 TH/UL SUNQUEST # Monocytes 0.6 0.2 - 0.9 TH/UL SUNQUEST # Eosinophils 0.1 0.0 - 0.4 TH/UL SUNQUEST # Basophils 0.0 0.0 - 0.2 TH/UL SUNQUEST Specimen Blood Performing Organization Address [facility] one Number SLRL [address] [address] SUNQUEST * Rheumatoid Factor (01/16/2002 11:40 AM PINION POLISHER) Rheumatoid <20 0 - 19 IU/ML SUNQUEST Factor Specimen Blood Performing Organization Address [facility] one Number SLRL [address] [address] SUNQUEST * Erythrocyte Sedimentation Rate (01/16/2002 11:40 AM PINION POLISHER) Sed Rate 16 0 - 20 MM/HR SUNQUEST Specimen Blood Performing Organization Address [facility] one Number SLRL [address] [address] SUNQUEST * Complement Profile (01/16/2002 11:40 AM PINION POLISHER) Complement 183 142 - 279 U/ML SUNQUEST Total Hemolytic C3 Complement 118 83 - 172 MG/DL SUNQUEST C4 Complement 22 18 - 51 MG/DL SUNQUEST Specimen Blood Performing Organization Address [facility] one Number SLRL [address] [address] SUNQUEST documented in this encounter Visit Diagnoses Not on filedocumented in this encounter
--- OUTSIDE RECORDS SUMMARY | 2020-06-01 06:21 | XMS REPORT | Encounter Summary ---
Author Author [facility] Organization [facility] Address Unknown Phone Unavailable Care Team Providers Care Senior Painter Name Role Phone Marielle Lea PCP Encounter Details Care Team Description Date Type Department [facility], Historical 10/29/2012 PracPart Note [facility] Social History Date Tobacco Use Types Packs/Day Years Used Never Assessed Sex Assigned at Date Recorded Not on file Industry Job Start Date Occupation Not on file Not on file Not on file Travel End Travel History Travel Start No recent travel history available. documented as of this encounter Progress Notes * [facility], Historical - 10/29/2012 9:23 AM PRESS HAND SUPERVISOR . :09:23AM .T:GFR order From: Jeannie Steen () Originated by: Jeannie Steen () Sent: 2 at 09:23AM To: Lachelle Reed ([facility]) Type: Priority: 3 Subject: GFR order I called [facility] to check to see when the pt mega her appt for MRI, as she wanted to mega this test herself. I was told it had not been schd yet, and that they need the order, precert info, and a GFR order before they will mega the appt . I am calling [facility] right now to obtain the precert info. Can you pls put the or tova in for GFR so I can fax with the order?- documented in this encounter Plan of Treatment Not on filedocumented as of this encounter Visit Diagnoses Not on filedocumented in this encounter
--- OUTSIDE RECORDS SUMMARY | 2020-06-01 06:22 | XMS REPORT | Continuity of Care Document ---
Author Organization Unknown Address Unknown Phone Unavailable Allergies Active Description Code Type Severity Reaction Onset Reported/Identified Relationship to Patient Clinical Status Yes No Known Drug Allergies [id number] Drug Allergy Unknown N/A 05/25/2020 Medications There is no data. Problems Date Dx Coded Attending Type Code Diagnosis Diagnosed By 08/21/2015 LEXA MONDRAGON, ATTILA Gilmore Ot R06.83 SNORING 06/01/2019 ELPIDIO, EDDIE SILK WASHING MACHINE OPERATOR Ot G89.29 OTHER CHRONIC PAIN 06/01/2019 ELPIDIO, EDDIE SILK WASHING MACHINE OPERATOR Ot M54.6 PAIN IN THORACIC SPINE 06/02/2019 ELPIDIO EDDIE SILK WASHING MACHINE OPERATOR Ot G89.29 OTHER CHRONIC PAIN 06/02/2019 ELPIDOI, EDDIE SILK WASHING MACHINE OPERATOR Ot G93.89 OTHER SPECIFIED DISORDERS OF BRAIN 06/02/2019 ELPIDIO, EDDIE SILK WASHING MACHINE OPERATOR Ot M54.2 CERVICALGIA 06/15/2019 ELPIDIO, EDDIE SILK WASHING MACHINE OPERATOR Ot G89.29 OTHER CHRONIC PAIN 06/15/2019 ELPIDIO, EDDIE SILK WASHING MACHINE OPERATOR Ot M54.6 PAIN IN THORACIC SPINE 07/23/2019 ELPIDIO, EDDIE SILK WASHING MACHINE OPERATOR Ot G89.29 OTHER CHRONIC PAIN 07/23/2019 ELPIDIO, EDDIE SILK WASHING MACHINE OPERATOR Ot G93.89 OTHER SPECIFIED DISORDERS OF BRAIN 07/23/2019 ELPIDIO, EDDIE SILK WASHING MACHINE OPERATOR Ot M54.2 CERVICALGIA 07/23/2019 ELPIDIO, EDDIE SILK WASHING MACHINE OPERATOR Ot G89.29 OTHER CHRONIC PAIN 07/23/2019 ELPIDIO, EDDIE SILK WASHING MACHINE OPERATOR Ot M54.6 PAIN IN THORACIC SPINE 08/18/2019 ELPIDIO, EDDIE SILK WASHING MACHINE OPERATOR Ot G89.29 OTHER CHRONIC PAIN 08/18/2019 ELPIDIO, EDDIE SILK WASHING MACHINE OPERATOR Ot G93.89 OTHER SPECIFIED DISORDERS OF BRAIN 08/18/2019 ELPIDIO, EDDIE SILK WASHING MACHINE OPERATOR Ot M54.2 CERVICALGIA 08/18/2019 ELPIDIO, EDDIE SILK WASHING MACHINE OPERATOR Ot G89.29 OTHER CHRONIC PAIN 08/18/2019 ELPIDIO, EDDIE SILK WASHING MACHINE OPERATOR Ot M54.6 PAIN IN THORACIC SPINE 08/26/2019 ELPIDIO, EDDIE SILK WASHING MACHINE OPERATOR Ot G89.29 OTHER CHRONIC PAIN 08/26/2019 ELPIDIO, EDDIE SILK WASHING MACHINE OPERATOR Ot G93.89 OTHER SPECIFIED DISORDERS OF BRAIN 08/26/2019 ELPIDIO, EDDIE SILK WASHING MACHINE OPERATOR Ot M54.2 CERVICALGIA 08/26/2019 ELPIDIO, EDDIE SILK WASHING MACHINE OPERATOR Ot G89.29 OTHER CHRONIC PAIN 08/26/2019 ELPIDIO, EDDIE SILK WASHING MACHINE OPERATOR Ot G93.89 OTHER SPECIFIED DISORDERS OF BRAIN 08/26/2019 ELPIDIO, EDDIE SILK WASHING MACHINE OPERATOR Ot M54.2 CERVICALGIA 08/26/2019 ELPIDIO, EDDIE SILK WASHING MACHINE OPERATOR Ot M54.6 PAIN IN THORACIC SPINE 08/26/2019 ELPIDIO, EDDIE SILK WASHING MACHINE OPERATOR Ot G89.29 OTHER CHRONIC PAIN 08/26/2019 ELPIDIO, EDDIE SILK WASHING MACHINE OPERATOR Ot G93.89 OTHER SPECIFIED DISORDERS OF BRAIN 08/26/2019 ELPIDIO, EDDIE SILK WASHING MACHINE OPERATOR Ot M54.2 CERVICALGIA 08/26/2019 ELPIDIO, EDDIE SILK WASHING MACHINE OPERATOR Ot M54.6 PAIN IN THORACIC SPINE 09/17/2019 ELPIDIO, EDDIE SILK WASHING MACHINE OPERATOR Ot G89.29 OTHER CHRONIC PAIN 09/17/2019 ELPIDIO, EDDIE SILK WASHING MACHINE OPERATOR Ot G93.89 OTHER SPECIFIED DISORDERS OF BRAIN 09/17/2019 ELPIDIO, EDDIE SILK WASHING MACHINE OPERATOR Ot M54.2 CERVICALGIA 09/17/2019 ELPIDIO, EDDIE SILK WASHING MACHINE OPERATOR Ot M54.6 PAIN IN THORACIC SPINE 12/19/2019 ELPIDIO, EDDIE SILK WASHING MACHINE OPERATOR Ot G89.29 OTHER CHRONIC PAIN 12/19/2019 ELPIDIO, EDDIE SILK WASHING MACHINE OPERATOR Ot G93.89 OTHER SPECIFIED DISORDERS OF BRAIN 12/19/2019 ELPIDIO, EDDIE SILK WASHING MACHINE OPERATOR Ot M54.2 CERVICALGIA 02/13/2020 ELPIDIO, EDDIE SILK WASHING MACHINE OPERATOR Ot G89.29 OTHER CHRONIC PAIN 02/13/2020 ELPIDIO, EDDIE SILK WASHING MACHINE OPERATOR Ot G93.89 OTHER SPECIFIED DISORDERS OF BRAIN 02/13/2020 ELPIDIO, EDDIE SILK WASHING MACHINE OPERATOR Ot M54.2 CERVICALGIA 02/13/2020 ELPIDIO, EDDIE SILK WASHING MACHINE OPERATOR Ot M54.6 PAIN IN THORACIC SPINE 02/18/2020 ELPIDIO, EDDIE SILK WASHING MACHINE OPERATOR Ot G89.29 OTHER CHRONIC PAIN 02/18/2020 ELPIDIO, EDDIE SILK WASHING MACHINE OPERATOR Ot G93.89 OTHER SPECIFIED DISORDERS OF BRAIN 02/18/2020 ELPIDIO, EDDIE SILK WASHING MACHINE OPERATOR Ot M54.2 CERVICALGIA 03/18/2020 EDDIE MAGALLANES Ot G89.29 OTHER CHRONIC PAIN 03/18/2020 EDIDE MAGALLANES Ot G93.89 OTHER SPECIFIED DISORDERS OF BRAIN 03/18/2020 EDDIE MAGALLANES Ot M54.2 CERVICALGIA Procedures There is no data. Results Test Result Range CMP - 06/26/19 08:40 GLUCOSE 100 mg/dL 65-99 UREA NITROGEN (BUN) 9 mg/dL 7-25 CREATININE 0.56 mg/dL 0.50-1.05 eGFR NON-AFR. [facility] 105 mL/min/1.73m2 > OR = 60 eGFR 122 mL/min/1.73m2 > OR = 60 BUN/CREATININE RATIO NOT APPLICABLE (calc) 6-22 SODIUM 139 mmol/L 135-146 POTASSIUM 4.3 mmol/L 3.5-5.3 CHLORIDE 105 mmol/L 98-110 CARBON DIOXIDE 23 mmol/L 20-32 CALCIUM 9.6 mg/dL 8.6-10.4 PROTEIN, TOTAL 6.6 g/dL 6.1-8.1 ALBUMIN 4.1 g/dL 3.6-5.1 GLOBULIN 2.5 g/dL (calc) 1.9-3.7 ALBUMIN/GLOBULIN RATIO 1.6 (calc) 1.0-2. 5 BILIRUBIN, TOTAL 0.5 mg/dL 0.2-1.2 ALKALINE PHOSPHATASE 94 U/L 33-130 AST 13 U/L 10-35 ALT 11 U/L 6-29 CBC - 06/26/19 08:40 WHITE BLOOD CELL COUNT 10.1 Thousand/uL 3.8-10.8 RED BLOOD CELL COUNT 4.89 Million/uL 3.8 0-5.10 HEMOGLOBIN 14.0 g/dL 11.7-15.5 HEMATOCRIT 43.5 % 35.0-45.0 MCV 89.0 fL 80.0-100.0 MCH 28.6 pg 27.0-33.0 MCHC 32.2 g/dL 32.0-36.0 RDW 12.6 % 11.0-15.0 PLATELET COUNT 419 Thousand/uL 140-400 MPV 9.3 fL 7.5-12.5 ABSOLUTE NEUTROPHILS 6848 cells/uL 1500- 7800 ABSOLUTE LYMPHOCYTES 2283 cells/uL 850-3 900 ABSOLUTE MONOCYTES 677 cells/uL 200-950 ABSOLUTE EOSINOPHILS 192 cells/uL 15-500 ABSOLUTE BASOPHILS 101 cells/uL 0-200 NEUTROPHILS 67.8 % NRG LYMPHOCYTES 22.6 % NRG MONOCYTES 6.7 % NRG EOSINOPHILS 1.9 % NRG BASOPHILS 1.0 % NRG TSH w/ FREE T4 - 06/29/19 15:42 TSH 1.18 mIU/L NRG T4, FREE 1.1 ng/dL 0.8-1.8 Complete blood count (CBC) with automate d white blood cell (WBC) differential - 05/25/20 12:15 Blood leukocytes automated count (number/volume) 10.6 10*3/uL 4.3-11.0 Blood erythrocytes automated count (number/volume) 5.06 10*6/uL 4.35-5.85 Venous blood hemoglobin measurement (mass/volume) 14.8 g/dL 11.5-16.0 Blood hematocrit (volume fraction) 44 % 35-52 Automated erythrocyte mean corpuscular volume 87 [ foz_us] 80-99 Automated erythrocyte mean corpuscular h emoglobin (mass per erythrocyte) 29 pg 25-34 Automated erythrocyte mean corpuscular h emoglobin concentration measurement (mass/volume) 34 g/dL 32-36 Automated erythrocyte distribution width ratio 13. 0 % 10.0- 14.5 Automated blood platelet count (count/volume) 419 10*3/uL 130-400 Automated blood platelet mean volume measurement 8.8 [foz_us] 7.4-10.4 Automated blood neutrophils/100 leukocytes 67 % 42-75 Automated blood lymphocytes/100 leukocytes 25 % 12-44 Blood monocytes/100 leukocytes 6 % 0-12 Automated blood eosinophils/100 leukocytes 1 % 0-10 Automated blood basophils/100 leukocytes 1 % 0-10 Blood neutrophils automated count (number/volume) 7.1 10*3 1.8-7.8 Blood lymphocytes automated count (number/volume) 2.7 10*3 1.0-4.0 Blood monocytes automated count (number/volume) 0. 6 10*3 0.0-1.0 Automated eosinophil count 0.1 10*3/uL 0 .0-0.3 Automated blood basophil count (count/volume) 0.1 10*3/uL 0.0-0.1 PT panel in platelet poor plasma by coag ulation assay - 05/25/20 12:15 Prothrombin time (PT) in platelet poor plasma by coagu lation assay 12.7 s 12.2-14.7 INR in platelet poor plasma or blood by coagulation as say 0.9 0.8-1.4 Erythrocyte sedimentation rate by kendrick gren method - 05/25/20 12:15 Erythrocyte sedimentation rate by westergren method 15 mm 0- 30 Comprehensive metabolic panel - 05/25/20 12:15 Serum or plasma sodium measurement (moles/volume) 138 mmol/L 135-145 Serum or plasma potassium measurement (moles/volume) 4.0 mmol/L 3.6-5.0 Serum or plasma chloride measurement (moles/volume) 104 mmol/L 98-107 Carbon dioxide 21 mmol/L 21-32 Serum or plasma anion gap determination (moles/volume) 13 mmol/L 5-14 Serum or plasma urea nitrogen measurement (mass/volume ) 11 mg/dL 7-18 Serum or plasma creatinine measurement (mass/volume) 0.68 mg/dL 0.60-1.30 Serum or plasma urea nitrogen/creatinine mass ratio 16 NRG Serum or plasma creatinine measurement w ith calculation of estimated glomerular filtration rate > NRG Serum or plasma glucose measurement (mass/volume) 93 mg/dL 70-105 Serum or plasma calcium measurement (mass/volume) 9.6 mg/dL 8.5-10.1 Serum or plasma total bilirubin measurement (mass/volu me) 0.4 mg/dL 0.1-1.0 Serum or plasma alkaline phosphatase nelia surement (enzymatic activity/volume) 85 U/L 40-136 Serum or plasma aspartate aminotransfera se measurement (enzymatic activity/volume) 17 U/L 5-34 Serum or plasma alanine aminotransferase measurement (enzymatic activity/volume) 13 U/L 0-55 Serum or plasma protein measurement (mass/volume) 7.5 g/dL 6.4-8.2 Serum or plasma albumin measurement (mass/volume) 4.3 g/dL 3.2-4.5 CALCIUM CORRECTED 9.4 mg/dL 8.5-10.1 Blood type T Indirect antibody screen pa sara - 05/25/20 12:15 WRISTBAND NUMBER BC [id number] NRG ABO+Rh group OP NRG Blood group antibody screen NEGATIVE NR G Methicillin resistant Staphylococcus aur eus (MRSA) screening culture - 05/25/20 12:15 Methicillin resistant Staphylococcus aureus (MRSA) scr eening culture NEG NRG Complete urinalysis with reflex to cultu re - 05/25/20 12:20 Urine color determination YELLOW NRG Urine clarity determination CLEAR NR G Urine pH measurement by test strip 6.5 5-9 Specific gravity of urine by test strip <= 1.016-1.022 Urine protein assay by test strip, semi-quantitative NEGATIVE NEGATIVE Urine glucose detection by automated test strip NE GATIVE NEGATIVE Erythrocytes detection in urine sediment by light micr oscopy 1+ NEGATIVE Urine ketones detection by automated test strip NE GATIVE NEGATIVE Urine nitrite detection by test strip NEGATIVE NEGATIVE Urine total bilirubin detection by test strip NEGA TIVE NEGATIVE Urine urobilinogen measurement by automated test strip (mass/volume) 0.2 mg/dL < = 1.0 Urine leukocyte esterase detection by dipstick NEG ATIVE NEGATIVE Automated urine sediment erythrocyte cou nt by microscopy (number/high power field) [HPF] NRG Automated urine sediment leukocyte count by microscopy (number/high power field) RARE NRG Bacteria detection in urine sediment by light microsco py NEGATIVE NRG Squamous epithelial cells detection in u rine sediment by light microscopy RARE NRG Crystals detection in urine sediment by light microsco py NONE NRG Casts detection in urine sediment by light microscopy NONE NRG Mucus detection in urine sediment by light microscopy NEGATIVE NRG Complete urinalysis with reflex to culture NO NRG Encounters ACCT No. Visit Date/Time Discharge Status Pt. Type Provider Facility Loc./Unit Complaint [id number] 04/15/2020 11:00:00 04/15/2020 23:59: 59 CLS Outpatient CECIL SHEETS [facility] [id number] 06/29/2019 14:40:00 Document Registration [id number] 06/26/2019 08:00:00 Document Registration [id number] 05/30/2020 05:34:00 020 10:15:00 DIS Outpatient CASEY MONDRAGON, ATTILA Gilmore [facility] PREOP RIGHT KNEE OSTEOARTHRI TIS [id number] 09/17/2019 09:18:00 019 23:59:59 CLS Outpatient JUANCARLOS PEARCE [facility] RAD DERANGEMENT OF OTHER M EDIAL MENISCUS [id number] 05/27/2019 13:56:00 07/10/2 019 23:59:59 CLS Outpatient EDDIE MAGALLANES [facility] RAD OTHER CHRONIC PAIN [id number] 05/27/2019 13:45:00 23:59:59 CLS Outpatient EDDIE MAGALLANES [facility] RAD OTHER CHRONIC PAIN [id number] 08/20/2015 20:38:00 06:05:00 DIS Outpatient ATTILA LINDQUIST MD [facility] SLEEP KEELY,SNORING [id number] 06/01/2020 06:15:[address] Inpatient ATTILA PEÑA MD [facility] SURG RIGHT KNEE OSTEOARTHRITIS
[2020-06-01] MEDS ORDERED: CEFUROXIME INJECTION 1,500 MG in WATER (STERILE) FOR INJECTION 15 ML IV ONE (06:30)
[2020-06-01] MEDS ORDERED: BUPIVACAINE 0.5% 30 ML (SENSORCAINE) VIAL ONE (06:44)
[2020-06-01] MEDS ORDERED: fentaNYL INJECTION 100 MCG/2 ML AMP ONE (06:49)
[2020-06-01] MEDS ORDERED: MIDAZOLAM 2 MG/2 ML (VERSED) VIAL ONE (06:51)
[2020-06-01] MEDS: LACTATED RINGERS 1,000 ML IV PRN ×2 (06:54→08:05)
[2020-06-01] MEDS ORDERED: diphenhydrAMINE 50 MG/ML INJ (BENADRYL) IVP PRN (07:15)
[2020-06-01] MEDS ORDERED: morphine PCA 100 MG/100 ML BAG IV PRN (07:15)
--- NOTE | 2020-06-01 07:25 | Progress Note-Pre Operative ---
Pre-Operative Progress Note H&P Reviewed The H&P was reviewed, patient examined and no changes noted. Date Seen by Provider: Jun 01, 2020 Time Seen by Provider: 07:11 Date H&P Reviewed: Jun 01, 2020 Time H&P Reviewed: 07:11 Pre-Operative Diagnosis: right knee primary osteoarthritis ATTILA PEÑA MD Jun 01, 2020 07:25
--- NOTE | 2020-06-01 07:26 | Progress Note-Post Operative ---
Post-Operative Progess Note Surgeon (s)/Refractory Worker (s) Surgeon ATTILA PEÑA MD Refractory Worker: Bk Aleman Pre-Operative Diagnosis right knee primary osteoarthritis Post-Operative Diagnosis right knee primary osteoarthritis Procedure & Operative Findings Date of Procedure 06/01/20 Procedure Performed/Findings right total knee arthroplasty Anesthesia Type GETA Estimated Blood Loss Estimated blood loss (mL): minimal Specimens/Packing Specimens Removed none Packing: none ATTILA PEÑA MD Jun 01, 2020 07:26
--- NOTE | 2020-06-01 07:29 | D/C HH Face to Face Order ---
D/C Face to Face Orders Reconcile Patient Problems Problems Reviewed?: Yes Instructions for Patient [facility] Patient Instructions/FollowUp: three weeks Physician to follow Patient: three weeks Discharge Diet for Home: Regular Diet Patient Data-Allergies,Ht & Wt Patient Allergies: Coded Allergies: No Known Drug Allergies (Unverified , 05/25/20) Home Health Need/Face to Face Date of Face to Face: Jun 01, 2020 Clinical Findings: Instability, Muscle weakness, Pain with ambulation, Unsteady gait I have seen Pt [id number]: Yes Discharged To: Home Diagnosis/Conditions: right total knee arthroplasty Patient is Homebound due to: Seth fall risk due to instabilty, Muscle weakness, Pain w/ambulation Homebound Status Due to the above stated illness, injury or surgical procedure (medical condition or diagnosis) and associated clinical findings, the patient is homebound because of his/her inability to leave home except with aid of a supportive device and/or person AND leaving the home requires a considerable and taxing effort or is medically contraindicated. Pt req the following assistanc: [facility] Nursing Orders Home Health Services Order: Physical Therapy-Evaluate & Treat DC right knee erika and apply steri strips 06/15/20 Therapy Orders Therapy Orders: Physical Therapy, PT to assess for OT Therapy Specific Orders: Eval assistive deivces, Teach enviro modifications/safety, Gait training, Increase strength/endurance, Provider maintenance therapy, Restore ROM Certify Stmt I certify that this patient is under my care and that I, a nurse practitioner or a physician; a educational program assistant working with me, had a face to face encounter that - meets the physician face to face encounter requirements with this patient as dated. ATTILA PEÑA MD Jun 01, 2020 07:29
[2020-06-01] MEDS ORDERED: INTRA-ARTICULAR IU ONE ×5 (07:30)
[2020-06-01] MEDS ORDERED: SEVOFLURANE (ULTANE) 15 ML INHAL SOLN ONE (08:06)
[2020-06-01] MEDS ORDERED: NEOSTIGMINE 3 MG/3 ML VIAL ONE (08:06)
[2020-06-01] MEDS ORDERED: ONDANSETRON 4 MG/2 ML (SDV) Z0FRAN ONE (08:06)
[2020-06-01] MEDS ORDERED: proPOfol 200 MG/20 ML (DIPRIVAN) VIAL IV ONE (08:06)
[2020-06-01] MEDS ORDERED: GLYCOPYRROLATE 0.2 MG/ML (ROBINUL) 2 ML VIAL ONE (08:06)
[2020-06-01] MEDS ORDERED: ROCURONIUM 10 MG/ML 5 ML SYRINGE IV ONE (08:06)
[2020-06-01] MEDS ORDERED: LIDOCAINE PF 2% 5 ML (XYLOCAINE) VIAL ONE (08:06)
[2020-06-01] MEDS ORDERED: DEXAMETHASONE 10 MG/ML (DECADRON) 1 ML VIAL ONE (08:06)
[2020-06-01] MEDS ORDERED: TRANEXAMIC ACID 100 MG/ML 10 ML INJECTION IV ONE (08:06)
[2020-06-01] MEDS ORDERED: HYDROmorphone 2 MG/ML VIAL (DILAUDID) ONE ×2 (08:06→09:36)
[2020-06-01] MEDS ORDERED: HYDROmorphone 2 MG/ML VIAL (DILAUDID) IV ONE (09:15)
[2020-06-01] MEDS ORDERED: morphine INJ 10 MG/ML 1ML (SYR OR VIAL) IVP ONE (09:15)
[2020-06-01] MEDS ORDERED: ONDANSETRON 4 MG/2 ML (SDV) Z0FRAN IVP PRN (09:15)
--- NOTE | 2020-06-01 10:05 | NUR ---
PT UP IN ROOM , REPORT FROM JED ESPARZA. PT STABLE WITH SLIGHT NAUSEA AND PAIN AT A 7.
--- NOTE | 2020-06-01 10:17 | Diagnostic Imaging Report ---
INDICATION: Postop right knee replacement. TIME OF EXAM: 9:29 AM 2 views of the right knee demonstrate postoperative changes of total knee arthroplasty. Prosthetic elements are in good position. No fracture or loosening is seen. Overlying skin erika are noted. IMPRESSION: Satisfactory postop right knee. Dictated by: Dictated on workstation # [id number]
--- NOTE | 2020-06-01 10:34 | OPERATIVE REPORT ---
DATE OF SERVICE: 06/01/2020 PREOPERATIVE DIAGNOSIS: Right knee primary osteoarthritis. POSTOPERATIVE DIAGNOSIS: Right knee primary osteoarthritis. PROCEDURE PERFORMED: Right total knee arthroplasty. SURGEON: Lavell Cartagena MD. LINOLEUM FLOOR INSTALLER: Bk Aleman, who assisted throughout the procedure and closed the incision. ANESTHESIA: General endotracheal by Dr. Nia Velásquez. TOURNIQUET TIME: Approximately 65 minutes at 300 mmHg. ESTIMATED BLOOD LOSS: Minimal. DRAINS: None. COMPLICATIONS: None. POSTOPERATIVE PLAN: Routine total knee arthroplasty protocol. MATERIALS: Microport cemented size 4 femur, cemented size 4 tibia with 10 mm insert and cemented size 32 patellar button. The patient was transferred to the recovery room awake and in a stable condition. STATEMENT OF MEDICAL NECESSITY: The patient is a 54-year-old female with complaints of progressively worsening right knee pain. She has undergone treatment with injections, anti-inflammatories and rest without relief. In addition, she underwent an arthroscopy, which revealed diffuse grade IV changes throughout her medial compartment and patellofemoral compartment. Due to functional impairment and failure to improve with conservative measures, the patient elected to proceed with surgical intervention. DESCRIPTION OF PROCEDURE: After risks and benefits of procedure were discussed and questions were answered, an informed consent was signed and placed on chart. The operative site was confirmed in the preoperative holding area initialed by the surgeon. The patient was then transferred to the operating room and after adequate levels of general endotracheal anesthetic were obtained, a timeout was called, confirming the operative site. The right lower extremity was prepped and draped in the usual sterile fashion with the leg elevated and the knee flexed. The tourniquet was inflated to 300 mmHg. Standard anterior approach was utilized. Hemostasis was obtained with cautery. Medial parapatellar arthrotomy was performed leaving 1 cm cuff on the patella for later reattachment. A portion of the fat pad was resected. A subperiosteal release was performed in the proximal medial tibia being careful to stay on the bony surface. The ACL was resected. Intramedullary guide was passed into the femur. The distal cutting block was placed and a distal cut was made femur sized to a size 4. The 4 cutting block was placed parallel to the epicondylar axis and cuts were made from posterior to anterior. Subperiosteal release was then carefully performed on the posterior distal femur, being careful to stay on the bony surface. Intramedullary guide was then passed into the tibia. The cutting block was placed. The drop lyly was transected from the intermalleolar axis and the cut was made. The four-baseplate was placed and the drop lyly transected the intermalleolar axis. This was felt to be in excellent position. This was prepared with the drill and keel punch. The femoral trial was placed and the trochlear cut was made. The patella was then prepared by resecting 10 mm off the undersurface using the freehand technique. The peg guide was placed and the peg holes were drilled. The trials were inserted. The knee demonstrated full extension. Greater than 120 degrees of flexion with gravity. The patella tracked well. There was no anterior/posterior or medial/lateral laxity in flexion or extension. The trials were removed. The joint was irrigated with pulse lavage. The periarticular block was placed in the posterior capsule, medial and lateral retinaculum, extensor mechanism and subcutaneous tissues. The bone ends were irrigated. The tibial baseplate was cemented into position. Excessive cement was removed, the superior surface was irrigated and dried and the polyethylene insert was placed. The distal femur was irrigated and dried and the femoral prosthesis was cemented into position. Excessive cement was removed. The knee was brought out into full extension and held until the cement had cured. Once the cement had cured, the knee was taken through range of motion. The patella tracked well. There was no anterior/posterior or medial/lateral laxity in flexion or extension. The knee demonstrated full extension and greater than 120 degrees of flexion with gravity. The joint was further irrigated with a pulse lavage. Arthrotomy was closed with #2 Tevdek in ryyiru-np-eyatz interrupted fashion. The knee was then flexed and the patella tracked well with no undue tension at the repair site. Subcutaneous tissues were irrigated using a total of 6 liters throughout the procedure. A 0 Vicryl was used for the deep subcutaneous layer, 2-0 Vicryl for the superficial subcutaneous layer and erika were used on the skin. A soft dressing was applied. The tourniquet was deflated. The patient was transferred to the recovery room awake and in stable condition. Job ID: [id number] DocumentID: [id number] Dictated Date: 06/01/2020 09:15:48 Sausage Inspector Date: 06/01/2020 10:33:47 Dictated By: LAVELL CARTAGENA MD
[2020-06-01] MEDS: ONDANSETRON 4 MG/2 ML (SDV) Z0FRAN IVP PRN ×2 (10:46→21:04)
[2020-06-01] MEDS: NS IV 1000 ML 1,000 ML IV SCH (11:06)
[2020-06-01] MEDS: SENNA W/DOCUSATE (SENOKOT S) TABLET PO SCH ×2 (11:06→21:04)
[2020-06-01] MEDS: oxyCODONE/APAP 5/325MG (PERCOCET 5) TABLET PO PRN (11:16)
--- NOTE | 2020-06-01 12:44 | Progress Note ---
Standard Progress Note Progress Notes/Assess & Plan Date Seen by a Provider: Jun 01, 2020 Time Seen by a Provider: 12:43 Progress/Assessment & Plan no complaints radiographs--HW well positioned without fracture RLE--2 plus DP pulse with brisk cap refill. Intact DF and PF of toes and ankle. intact sensation to light touch throughout s/p RTKA mobilize as able ATTILA PEÑA MD Jun 01, 2020 12:44
--- NOTE | 2020-06-01 14:12 | Physical Therapy Evaluation ---
PT Evaluation-General Medical Diagnosis Admission Date Jun 01, 2020 at 06:15 Medical Diagnosis: right TKA Onset Date: Jun 01, 2020 Therapy Diagnosis Therapy Diagnosis: impaired mobility, strength, endurance, ROM Precautions Precautions/Isolations: Fall Prevention, Standard Precautions Weight Bear Status Right Lower Extremity: Right Weight Bearing/Tolerated Referral Physician: Ash Reason for Referral: Evaluation/Treatment Medical History Additional Medical History PAST MEDICAL HISTORY: Significant for cholecystitis. PAST SURGICAL HISTORY: Cholecystectomy, tubal ligation, breast reduction, right foot neuroma excision, oral surgery, lumpectomy and right knee arthroscopy. Reviewed History: Yes Social History Home: Single Level Current Living Status: Spouse Entry Into Home: Stairs Without Railing PT Steps Into Home: 5 Prior Prior Level of Function SCALE: Activities may be completed with or without assistive devices. 8-Rolwxedsgp-uzqitgi completes the activity by him/herself with no assistance from a helper. 5-Set-up or Clean-up Assistance-helper sets up or cleans up; patient completes activity. [place] assists only prior to or following the activity. 4-Supervision or Touching Assistance-helper provides verbal cues and/or touching/steadying and/or contact guard assistance as patient completes activity. Assistance may be provided throughout the activity or intermittently. 3-Partial/Moderate Assistance-helper does LESS THAN HALF the effort. [place] lifts, holds or supports trunk or limbs, but provides less than half the effort. 2-Substantial/Maximal Assistance-helper does MORE THAN HALF the effort. [place] lifts or holds trunk or limbs and provides more than half the effort. 1-Ggadzllln-jyrslu does ALL the effort. Patient does none of the effort to complete the activity. Or, the assistance of 2 or more helpers is required for the patient to complete the activity. If activity was not attempted, code reason: 7-Patient Refused. 9-Not Applicable-not attempted and the patient did not perform the activity before the current illness, exacerbation or injury. 10-Not Attempted due to Environmental Limitations-(lack of equipment, weather restraints, etc.). 88-Not Attempted due to Medical Conditions or Safety Concerns. Bed Mobility: 6 Transfers (B,C,W/C): 6 Gait: 6 Stairs: 6 Indoor Mobility (Ambulation): Independent Stairs: Independent PT Evaluation-Current Subjective Patient in bed pre tx, agrees to PT, has 7/10 pain in right knee. Pt/Family Goals to be independent at home Objective Patient Orientation: Person, Place, Situation Attachments: Oxygen, IV ROM/Strength ROM Lower Extremities right knee extension +3 degrees, flexion 85 degrees Sensory Hearing: Functional Sensation Right Lower Extremit: Intact Sensation Left Lower Extremity: Intact Transfers Roll Left to Right (QC): 6 Sit to Lying (QC): 4 Lying to Sitting/Side of Bed(Q: 4 Sit to Stand (QC): 4 Chair/Yuc-qh-Jfiuy Xfer(QC): 4 Toilet Transfer (QC): 4 Patient SBA for supine <-> sit, CGA for sit to stand and transfers. Gait Does the Patient Walk?: Yes Mode of Locomotion: Walk Anticipated Mode of Locomotion: Walk Walk 10 feet (QC): 4 Distance: 25' Gait Assistive Device: FWW Comments/Gait Description Patient has antalgic ambulation, CGA, decreased step through on the left side, good heel strike, decreased right knee flexion. Patient ambulated to the door and then to the restroom, she was able to toilet herself without assist other than CGA for the toilet transfer. Balance Sitting Static: Normal Sitting Dynamic: Normal Standing Static: Good Standing Dynamic: Good Treatment BLE supine total knee protocol x10 (AP, QS, HS, SAQ, SLR). CPM donned and fit to patient's leg and set to 60/-2 degrees. Assessment/Needs Patient has impaired mobility, strength, endurance, ROM post right TKA. Patient was experiencing some popping and pain in her right knee. Patient in bed post tx with nurse call, phone, tray, all needs met, polar care on, SCD's on, CPM on. Rehab Potential: Fair PT Mail Carrier And Clerk Goals Group Home Goals PT Group Home Goals Time Frame: Jun 08, 2020 Roll Left & Right (QC): 6 Sit to Lying (QC): 6 Lying-Sitting on Side/Bed(QC): 6 Sit to Stand (QC): 6 Chair/Bys-ho-Fppft Xfer(QC): 6 Walk 10 feet (QC): 6 Walk 50ft with 2 Turns (QC): 6 Walk 150 ft (QC): 6 PT Plan Problem List Problem List: Activity Tolerance, Functional Strength, Safety, Balance, Gait, Transfer, Bed Mobility, ROM Treatment/Plan Treatment Plan: Continue Plan of Care Treatment Plan: Bed Mobility, Education, Functional Activity Michael, Functional Strength, Gait, Safety, Therapeutic Exercise, Transfers Treatment Duration: Jun 08, 2020 Frequency: 11 times per week Estimated Hrs Per Day: .25 hour per day Patient and/or Family Agrees t: Yes Safety Risks/Education Patient Education: Gait Training, Transfer Techniques, Reviewed Use of Ice, Correct Positioning, Safety Issues Teaching Recipient: Patient Teaching Methods: Demonstration, Discussion Response to Teaching: Reinforcement Needed Discharge Recommendations Plan Patient will perform bed mobility and transfer training, balance and endurance training, functional strengthening, stair training, gait training, and education, to improve functional mobility and independence at home. Therapy Discharge Recommendati: Home & Family, Post Acute PT Time/GCodes Time In: 1308 Time Out: 1334 Total Billed Treatment Time: 24 Total Billed Treatment 1 visit EVL 10' FA 14' MISHA VERDE PT Jun 01, 2020 14:12
--- NOTE | 2020-06-01 15:08 | Consultation - Hospitalist ---
HPI History of Present Illness: HPI/Chief Complaint Pt is a 54yoCF who was admitted for total knee arthroplasty due to osteoarthritis. She reports feeling well and pain has been good up until when she was walking with PT and felt like something may have popped. She also is a little nauseated but thinks it is due to the aspartame in her diet pop. She has no other complaints. I am consulted for medical management. Source: patient Date Seen 06/01/20 Attending Physician Lavell Cartagena MD PCP Marielle Lea MD Referring Physician Date of Admission Jun 01, 2020 at 06:15 Home Medications & Allergies Home Medications Reviewed patient Home Medication Reconciliation performed by pharmacy medication reconciliations communications technician and/or nursing. Patients Allergies have been reviewed. Allergies Allergies Coded Allergies No Known Drug Allergies (Unverified05/25/20) Past Ccxsyof-Igipqd-Kdzhwd Hx Past Med/Social Hx: Reviewed Nursing Past Med/Soc Hx Patient Social History Alcohol Use: Denies Use Recreational Drug Use: No Smoking Status: Current Everyday Smoker Type Used: Cigarettes Physical Abuse Screen: No Sexual Abuse: No Recent Foreign Travel: No Contact w/other who traveled: No Recent Hopitalizations: No Recent Infectious Disease Expo: No Seasonal Allergies Seasonal Allergies: Yes Past Medical History Currently Using CPAP: Yes Currently Using BIPAP: No Sexually Transmitted Disease: No HIV/AIDS: No Gastrointestinal: Colitis, Gastroesophageal Reflux, Chronic Constipation Musculoskeletal: Arthritis Loss of Vision: Left Hearing Impairment: Denies Psychosocial: Anxiety, Depression History of Blood Disorders: No Adverse Reaction to Blood Lemon: No (N/A) Family History Reviewed Nursing Family Hx No Pertinent Family Hx Review of Systems Constitutional: No chills, No fever Respiratory: No short of breath Cardiovascular: No chest pain Gastrointestinal: No abdominal pain; nausea; No vomiting Musculoskeletal: joint pain Psychiatric/Neurological: No Symptoms Reported Physical Exam Physical Exam Vital Signs Vital Signs - First Documented Capillary Refill : Less Than 3 Seconds Height, Weight, BMI Height: '" Weight: lbs. oz. kg; 32.35 BMI Method: General Appearance: No Apparent Distress, WD/WN Respiratory: Lungs Clear, No Accessory Muscle Use, No Respiratory Distress Cardiovascular: Regular Rate, Rhythm, No Murmur Gastrointestinal: Normal Bowel Sounds, Non Tender, Soft Extremity: Other (right leg in CPM) Neurologic/Psychiatric: Alert, Oriented x3, Normal Mood/Affect Results Results/Procedures Labs Patient resulted labs reviewed. Imaging: Reviewed Imaging Report Imaging [facility], [facility]. [place], [place] NAME: YUVAL LEE [facility] REC#: [id number] PT STATUS: ADM IN : 1965 PHYSICIAN: ATUL CANDELARIA ADMIT DATE: 06/01/20/ Draft Date of Exam:06/01/20 KNEE, RIGHT, 2 VIEWS INDICATION: Postop right knee replacement. TIME OF EXAM: 9:29 AM 2 views of the right knee demonstrate postoperative changes of total knee arthroplasty. Prosthetic elements are in good position. No fracture or loosening is seen. Overlying skin erika are noted. IMPRESSION: Satisfactory postop right knee. Dictated on workstation # [id number] Dict: 06/01/20 1011 Trans: 06/01/20 1017 [facility] [id number] Interpreted by: MARY CARMEN GRAHAM MD Electronically signed by: Assessment/Plan Assessment and Plan Assess & Plan/Chief Complaint Severe right knee osteoarthritis s/p TKA POD #0 pain control Bowel regimen PT/OT Lovenox Diagnosis/Problems Diagnosis/Problems (1) Osteoarthritis of right knee Qualifiers: Osteoarthritis type: primary Qualified Codes: M17.11 - Unilateral primary osteoarthritis, right knee Clinical Quality Measures DVT/VTE Risk/Contraindication: Risk Factor Score Per Nursin RFS Level Per Nursing on Admit: 4+=Very High BRIGITTE JAMESON MD Jun 01, 2020 15:08
[2020-06-01] MEDS: CEFUROXIME INJECTION 750 MG in WATER (STERILE) FOR INJECTION 10 ML IV SCH (15:56)
--- NOTE | 2020-06-01 16:50 | NUR ---
MORPHINE WAS STARTED WHEN NEW IV WAS PLACED AT 1530.
[2020-06-02 00:16] VITALS: BP 117/56
[2020-06-02] MEDS: NS IV 1000 ML 1,000 ML IV SCH ×3 (01:06→13:41)
[2020-06-02] MEDS: CEFUROXIME INJECTION 750 MG in WATER (STERILE) FOR INJECTION 10 ML IV SCH (01:15)
[2020-06-02 04:00] VITALS: BP 128/71
[2020-06-02] MEDS: ACETAMINOPHEN 325 MG TABLET PO PRN (05:22)
[2020-06-02 05:24] LABS: HEMOGLOBIN 10.3 G/DL (11.5-16.0); MEAN PLATELET VOLUME 8.9 FL (7.4-10.4); RED CELL DISTRIBUTION WIDTH 12.8 % (10.0-14.5); WHITE BLOOD COUNT 14.5 10^3/uL (4.3-11.0)
[2020-06-02] MEDS: MULTIVIT W/MINERALS TAB (THERAGRAN M) PO SCH (06:19)
--- NOTE | 2020-06-02 06:50 | Anesthesia-General Post-Op ---
General Patient Condition Mental Status/LOC: Same as Preop Cardiovascular: Satisfactory Nausea/Vomiting: Absent Respiratory: Satisfactory Pain: Controlled Complications: Absent Post Op Complications Complications None Follow Up Care/Instructions Patient Instructions None needed. Anesthesia/Patient Condition Patient Condition Patient is doing well, no complaints, stable vital signs, no apparent adverse anesthesia problems. No complications reported per nursing. TONY FERGUSON CRNA Jun 02, 2020 06:50
[2020-06-02 07:26] VITALS: BP 102/55
--- NOTE | 2020-06-02 08:03 | Progress Note ---
Standard Progress Note Progress Notes/Assess & Plan Date Seen by a Provider: Jun 02, 2020 Time Seen by a Provider: 08:02 Progress/Assessment & Plan no complaints radiographs--HW well positioned without fracture RLE--2 plus DP pulse with brisk cap refill. Intact DF and PF of toes and ankle. intact sensation to light touch throughout s/p RTKA mobilize as able Final Diagnosis patient reports feeling a pop when moving to sit Vital Signs Date Time Temp Pulse Resp B/P (MAP) Pulse Ox O2 Delivery O2 Flow Rate FiO2 06/02/20 07:26 37.1 67 20 102/55 (71) 91 Room Air 06/02/20 04:00 36.8 68 20 128/71 (90) 91 Room Air 06/02/20 00:16 36.5 68 21 117/56 (76) 92 Room Air 06/01/20 20:39 36.5 68 18 104/56 (72) 93 Room Air 06/01/20 20:35 Room Air 06/01/20 16:42 16 06/01/20 16:20 36.5 63 18 121/61 (81) 93 Room Air 06/01/20 14:50 92 Room Air 06/01/20 11:55 36.2 64 18 112/72 (85) 92 Nasal Cannula 3.00 06/01/20 10:05 36.9 20 121/59 (79) 97 Nasal Cannula 3 06/01/20 10:05 Nasal Cannula 3 06/01/20 10:00 Nasal Cannula 3 06/01/20 10:00 20 120/60 (80) 99 Nasal Cannula 3 06/01/20 10:00 36.4 72 18 115/75 (88) 92 Nasal Cannula 3.00 06/01/20 09:50 20 133/61 (85) 98 Nasal Cannula 3 06/01/20 09:45 OxyMask 4 06/01/20 09:40 20 146/70 (95) 94 OxyMask 4 06/01/20 09:30 OxyMask 4 06/01/20 09:30 20 134/68 (90) 96 OxyMask 4 06/01/20 09:20 20 139/61 (87) 95 OxyMask 6 06/01/20 09:15 OxyMask 6 06/01/20 09:10 20 145/66 (92) 96 OxyMask 6 06/01/20 09:07 OxyMask 6 06/01/20 09:07 36.9 20 127/73 (91) 100 OxyMask 6 I & O 06/02/20 07:00 Intake Total 2835 ml Output Total 400 ml Balance 2435 ml Laboratory Tests Test 06/02/20 05:15 Range/Units White Blood Count 14.5 H 4.3-11.0 10^3/uL Red Blood Count 3.49 L 4.35-5.85 10^6/uL Hemoglobin 10.3 L 11.5-16.0 G/DL Hematocrit 31 L 35-52 % Mean Corpuscular Volume 89 80-99 FL Mean Corpuscular Hemoglobin 30 25-34 PG Mean Corpuscular Hemoglobin Concent 33 32-36 G/DL Red Cell Distribution Width 12.8 10.0-14.5 % Platelet Count 297 130-400 10^3/uL Mean Platelet Volume 8.9 7.4-10.4 FL Creatinine 0.57 L 0.60-1.30 MG/DL RLE--able to perform a SLR. No varus or valgus laxity. NVI distally s/p RTKA without acute change continue PT/OT ATTILA PEÑA MD Jun 02, 2020 08:03
--- NOTE | 2020-06-02 09:10 | Physical Therapy Daily Note ---
PT Daily Note-Current Subjective Patient in recliner pre tx, agrees to PT, has 8/10 pain in right knee. Patient very concerned about popping her knee, thinks it may be injured, quadricep seems to be intact, patient can do LAQ and SLR Appearance Patient in recliner post tx with nurse call, phone, tray, all needs met. Mental Status Patient Orientation: Normal For Age Attachments: Polar Pack, IV Transfers SCALE: Activities may be completed with or without assistive devices. 3-Pkkhkujvyh-gtqxqmv completes the activity by him/herself with no assistance from a helper. 5-Set-up or Clean-up Assistance-helper sets up or cleans up; patient completes activity. [place] assists only prior to or following the activity. 4-Supervision or Touching Assistance-helper provides verbal cues and/or touching/steadying and/or contact guard assistance as patient completes activity. Assistance may be provided throughout the activity or intermittently. 3-Partial/Moderate Assistance-helper does LESS THAN HALF the effort. [place] lifts, holds or supports trunk or limbs, but provides less than half the effort. 2-Substantial/Maximal Assistance-helper does MORE THAN HALF the effort. [place] lifts or holds trunk or limbs and provides more than half the effort. 1-[place]-cqizpk does ALL the effort. Patient does none of the effort to complete the activity. Or, the assistance of 2 or more helpers is required for the patient to complete the activity. If activity was not attempted, code reason: 7-Patient Refused. 9-Not Applicable-not attempted and the patient did not perform the activity before the current illness, exacerbation or injury. 10-Not Attempted due to Environmental Limitations-(lack of equipment, weather restraints, etc.). 88-Not Attempted due to Medical Conditions or Safety Concerns. Sit to Stand (QC): 4 Chair/Hrf-la-Qyaie Xfer(QC): 4 SBA Weight Bearing Right Lower Extremity: Right Weight Bearing/Tolerated Gait Training Distance: 100' Walk 10 feet (QC): 4 Walk 50 ft with 2 Turns(QC): 4 Gait Persons Needed: 1 Gait Assistive Device: FWW antalgic, slow but steady ambulation, flexed right knee, fair step through Exercises Supine Ex: Quad Set Supine Reps: 15 (done in recliner with legs elevated) Seated Therapy Exercises: Ankle pumps, Long arc quads, Hamstring Curls Seated Reps: 15 seated knee flexion stretch Treatments transfers, ambulation, LE exercise Assessment Current Status: Fair Progress patient seems to be on track with TKA protocol PT Veneer Taper Goals Detention Goals PT Detention Goals Time Frame: Jun 08, 2020 Roll Left & Right (QC): 6 Sit to Lying (QC): 6 Lying-Sitting on Side/Bed(QC): 6 Sit to Stand (QC): 6 Chair/Bcx-mz-Zsjiu Xfer(QC): 6 Walk 10 feet (QC): 6 Walk 50ft with 2 Turns (QC): 6 Walk 150 ft (QC): 6 PT Plan Problem List Problem List: Activity Tolerance, Functional Strength, Safety, Balance, Gait, Transfer, Bed Mobility, ROM Treatment/Plan Treatment Plan: Continue Plan of Care Treatment Plan: Bed Mobility, Education, Functional Activity Michael, Functional Strength, Gait, Safety, Therapeutic Exercise, Transfers Treatment Duration: Jun 08, 2020 Frequency: 11 times per week Estimated Hrs Per Day: .25 hour per day Patient and/or Family Agrees t: Yes Safety Risks/Education Patient Education: Gait Training, Transfer Techniques, Correct Positioning, Safety Issues Teaching Recipient: Patient Teaching Methods: Demonstration, Discussion Response to Teaching: Reinforcement Needed Time/GCodes Time In: 852 Time Out: 904 Total Billed Treatment Time: 12 Total Billed Treatment 1 visit FA 12' MISHA VERDE PT Jun 02, 2020 09:10
[2020-06-02] MEDS: ENOXAPARIN 30 MG/0.3 ML (LOVENOX) SYR SC SCH ×2 (09:12→20:36)
[2020-06-02] MEDS: SENNA W/DOCUSATE (SENOKOT S) TABLET PO SCH ×2 (09:12→20:35)
[2020-06-02] MEDS: ASPIRIN E.C. 81 MG (ECOTRIN) TAB PO SCH (09:12)
--- NOTE | 2020-06-02 10:07 | NUR ---
IRF Evaluation Order received to evaluate patient for the ARU. Chart review complete and it appears patient is ambulating (100ft, FWW) and transferring with supervision. Given today is POD1, and patient is functioning as well as he is, it is anticipated patient will not require intensive therapies. Thank you for this referral.
[2020-06-02] MEDS: ONDANSETRON 4 MG/2 ML (SDV) Z0FRAN IVP PRN (11:18)
--- NOTE | 2020-06-02 11:38 | NUR ---
Pt is Zoroastrianism with no synagogue needs. Music Publicist offered blessing.
--- NOTE | 2020-06-02 11:59 | Occupational Therapy Eval ---
OT Evaluation-General/PLF Medical Diagnosis Admission Date Jun 01, 2020 at 06:15 Medical Diagnosis: right TKA Onset Date: Jun 01, 2020 Therapy Diagnosis Therapy Diagnosis: Decreased ADL status Precautions Precautions/Isolations: Fall Prevention Weight Bear Status Weight Bearing Restriction: Weight Bearing/Tolerated Location Restriction: R LE Referral Physician: Ash Referral Reason: Activity Tolerance, Self Care, Evaluation/Treatment, Strengthening/ROM Medical History Additional Medical History cholecystitis, breast reduction Current History R TKA 7. Reviewed History: Yes Social History Home: Single Level Current Living Status: Spouse Entry Into Home: Stairs Without Railing Steps Into Home: 5 ADL-Prior Level of Function SCALE: Activities may be completed with or without assistive devices. 8-Hqsgptzstp-psiihns completes the activity by him/herself with no assistance from a helper. 5-Set-up or Clean-up Assistance-helper sets up or cleans up; patient completes activity. [place] assists only prior to or following the activity. 4-Supervision or Touching Assistance-helper provides verbal cues and/or touching/steadying and/or contact guard assistance as patient completes activity. Assistance may be provided throughout the activity or intermittently. 3-Partial/Moderate Assistance-helper does LESS THAN HALF the effort. [place] lifts, holds or supports trunk or limbs, but provides less than half the effort. 2-Substantial/Maximal Assistance-helper does MORE THAN HALF the effort. [place] lifts or holds trunk or limbs and provides more than half the effort. 3-Ubqfyagra-krsgdn does ALL the effort. Patient does none of the effort to complete the activity. Or, the assistance of 2 or more helpers is required for the patient to complete the activity. If activity was not attempted, code reason: 7-Patient Refused. 9-Not Applicable-not attempted and the patient did not perform the activity before the current illness, exacerbation or injury. 10-Not Attempted due to Environmental Limitations-(lack of equipment, weather restraints, etc.). 88-Not Attempted due to Medical Conditions or Safety Concerns. ADL PLOF Comments Pt was IND without use of AE. Self Care: Independent Functional Cognition: Independent DME/Equipment: Bath Chair, Bedside Commode, Tub/Shower DME/Equipment Comments Pt has tub/ shower with sc and BSC, w/c, walker. 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 Pt c/o 2/10 pain in R knee. States not bad until standing. Pt agrees to OT eval/ treat. Mental Status/Objective Patient Orientation: Normal For Age Attachments: IV, Polar Pack Current Upper Extremity ROM WFL BUE Upper Extremity Coordination WFL BUE Upper Extremity Sensation WFL BUE Upper Extremity Strength WFL BUE ADL-Treatment Eating (QC): 6 Oral Hygiene (QC): 6 Lower Body Dressing (QC): 6 (per clinical judgment) On/Off Footwear (QC): 6 Other Treatments Pt provides hx and env at home. 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 Pt states has "all DME" due to father living in house (has recently passed). Pt expresses min pain at rest, sit to stand with SBA, ambulates to door and back with 2WW and no LOB. Pt completes sock don/ doffing EOB with IND. Based on pt fx and ability, no OT needed. No AE recommendations. All needs met, call light in reach. Pt left in bed with polar pack reapplied. Education OT Patient Education: Correct positioning, Progress toward Goal/Update tx plan, Transfer techniques Teaching Recipient: Patient Teaching Methods: Demonstration, Discussion Response to Teaching: Verbalize Understanding, Return Demonstration OT Prison Goals Prison Goals 1=Demonstrate adherence to instructed precautions during ADL tasks. 2=Patient will verbalize/demonstrate understanding of assistive devices/modif ications for ADL. 3=Patient will improve strength/tolerance for activity to enable patient to perform ADL's. OT Education/Plan Problem List/Assessment Assessment: No Skilled OT Needs ID'd Discharge Recommendations Plan/Recommendations: Discharge/Goals Met Therapy Discharge Recommendati: Home & Family Treatment Plan/Plan of Care Treatment,Training & Education: Yes Patient would benefit from OT for education, treatment and training to promote independence in ADL's, mobility, safety and/or upper extremity function for ADL's. Plan of Care: OTHER (eval and d/c) Treatment Duration: Jun 02, 2020 Frequency: 1 time per week (eval and d/c) Rehab Potential: Fair Time/GCodes Start Time: 10:05 Stop Time: 10:20 Total Time Billed (hr/min): 15 Billed Treatment Time 1NATASHA (15) GIOVANNI FRAGA OTR Jun 02, 2020 11:59
[2020-06-02 12:45] VITALS: BP 105/64
--- NOTE | 2020-06-02 13:24 | Physical Therapy Daily Note ---
PT Daily Note-Current Subjective Patient in bed pre tx, agrees to PT, has 8/10 pain in right knee. Patient laying with right hip externally rotated and knee bent. Appearance Patient in bed post tx with nurse call, phone, munira, maximiliano fuentes on, encouraged to leave CPM off for now and perform quad sets often to try to gain more knee extension. Mental Status Patient Orientation: Normal For Age Attachments: Polar Pack, IV Transfers SCALE: Activities may be completed with or without assistive devices. 1-Hftlftyofr-qassgaw completes the activity by him/herself with no assistance from a helper. 5-Set-up or Clean-up Assistance-helper sets up or cleans up; patient completes activity. [place] assists only prior to or following the activity. 4-Supervision or Touching Assistance-helper provides verbal cues and/or touching/steadying and/or contact guard assistance as patient completes activity. Assistance may be provided throughout the activity or intermittently. 3-Partial/Moderate Assistance-helper does LESS THAN HALF the effort. [place] lifts, holds or supports trunk or limbs, but provides less than half the effort. 2-Substantial/Maximal Assistance-helper does MORE THAN HALF the effort. [place] lifts or holds trunk or limbs and provides more than half the effort. 2-Ghaenzpsm-skrmtv does ALL the effort. Patient does none of the effort to complete the activity. Or, the assistance of 2 or more helpers is required for the patient to complete the activity. If activity was not attempted, code reason: 7-Patient Refused. 9-Not Applicable-not attempted and the patient did not perform the activity before the current illness, exacerbation or injury. 10-Not Attempted due to Environmental Limitations-(lack of equipment, weather restraints, etc.). 88-Not Attempted due to Medical Conditions or Safety Concerns. Roll Left & Right (QC): 6 Sit to Lying (QC): 6 Lying to Sitting/Side of Bed(Q: 6 Sit to Stand (QC): 4 Chair/Iqm-zd-Iyceo Xfer(QC): 4 Weight Bearing Right Lower Extremity: Right Weight Bearing/Tolerated Gait Training Distance: 120' Walk 10 feet (QC): 4 Walk 50 ft with 2 Turns(QC): 4 Gait Persons Needed: 1 Gait Assistive Device: FWW SBA, flexed right knee, decreased step through on left side, good heel strike though Exercises Supine Ex: Ankle pumps, Quad Set, Glut sets, Heel Slides, Straight leg raise Supine Reps: 15 Treatments TKA exercise protocol, bed mobility and transfers, ambulation Assessment Current Status: Fair Progress patient is very concerned about popping in her right knee, nurse is aware, patient encouraged to talk to Dr. Cartagena about it. PT Door Maker Goals Penitentiary Goals PT Door Maker Goals Time Frame: Jun 08, 2020 Roll Left & Right (QC): 6 Sit to Lying (QC): 6 Lying-Sitting on Side/Bed(QC): 6 Sit to Stand (QC): 6 Chair/Exy-lc-Oswmz Xfer(QC): 6 Walk 10 feet (QC): 6 Walk 50ft with 2 Turns (QC): 6 Walk 150 ft (QC): 6 PT Plan Problem List Problem List: Activity Tolerance, Functional Strength, Safety, Balance, Gait, Transfer, ROM Treatment/Plan Treatment Plan: Continue Plan of Care Treatment Plan: Bed Mobility, Education, Functional Activity Michael, Functional Strength, Gait, Safety, Therapeutic Exercise, Transfers Treatment Duration: Jun 08, 2020 Frequency: 11 times per week Estimated Hrs Per Day: .25 hour per day Patient and/or Family Agrees t: Yes Safety Risks/Education Patient Education: Gait Training, Transfer Techniques, Correct Positioning, Safety Issues Teaching Recipient: Patient Teaching Methods: Demonstration, Discussion Response to Teaching: Reinforcement Needed Time/GCodes Time In: 1302 Time Out: 1318 Total Billed Treatment Time: 16 Total Billed Treatment 1 visit FA 16' MISHA VERDE PT Jun 02, 2020 13:24
--- NOTE | 2020-06-02 14:38 | NUR ---
CM/SS: Visited with pt a to plan for discharge related to home care physical therapy and equipment. Plan: Pt will return home, where she lives with her spouse and have [facility] Summary: Pt reports she is doing ok today. Pt has been up walking with physical therapy and reports she is doing good, at least she thinks. This worker encourages her to continue to do what she has been asked related to movement. Pt seems motivated to want to move and work on getting better. Pt does not want to go inpatient rehab she would like to go home. She is ok for [facility] for physical therapy, and then utilize another agency for out patient physical therapy. Pt is motivated to get better. Process for referral explained to pt, she verbalizes understanding and at this time does not need a walker, as she had her fathers to use. Pt is eager to discharge to home on tomorrow. Referral faxed to [facility] [phone] - Owen Muir.
[2020-06-02] MEDS: oxyCODONE/APAP 5/325MG (PERCOCET 5) TABLET PO PRN ×4 (14:39→23:53)
[2020-06-02 16:00] VITALS: BP 103/60
[2020-06-02 19:00] VITALS: BP 100/64
[2020-06-03] VITALS: BP 123/69
--- NOTE | 2020-06-03 02:33 | DISCHARGE SUMMARY ---
DATE OF SERVICE: DIAGNOSES: 1. Right knee primary osteoarthritis. 2. Cholecystitis. PROCEDURE: Right total knee arthroplasty. SUMMARY: The patient is a 54-year-old female who underwent a right total knee arthroplasty on the day of admission. Postoperatively, she did well. At time of discharge, her wound was clean and dry. She had no calf tenderness. Negative Homans sign. She was tolerating diet well and tolerating pain with oral pain medication. CONDITION AT DISCHARGE: Good. DISCHARGE DIET: Regular. FOLLOWUP: Followup is in three weeks. Home physical therapy has been arranged. DISCHARGE MEDICATIONS: Percocet as needed for pain, one aspirin per day for 30 days and home medications. ACTIVITIES: Weightbearing as tolerated with a walker. Job ID: [id number] DocumentID: [id number] Dictated Date: 06/02/2020 15:39:56 Neon Electrician Date: 06/03/2020 02:33:00 Dictated By: ATTILA PEÑA MD
[2020-06-03] MEDS: NS IV 1000 ML 1,000 ML IV SCH (02:52)
[2020-06-03] MEDS: ACETAMINOPHEN 325 MG TABLET PO PRN (03:21)
[2020-06-03 04:48] VITALS: BP 124/74
[2020-06-03 05:43] LABS: HEMOGLOBIN 9.1 G/DL (11.5-16.0)
--- NOTE | 2020-06-03 07:08 | Progress Note ---
Standard Progress Note Progress Notes/Assess & Plan Date Seen by a Provider: Jun 03, 2020 Time Seen by a Provider: 07:06 Progress/Assessment & Plan no complaints radiographs--HW well positioned without fracture RLE--2 plus DP pulse with brisk cap refill. Intact DF and PF of toes and ankle. intact sensation to light touch throughout s/p RTKA mobilize as able Final Diagnosis no complaints Vital Signs Date Time Temp Pulse Resp B/P (MAP) Pulse Ox O2 Delivery O2 Flow Rate FiO2 06/03/20 04:48 36.8 79 18 124/74 (91) 96 Nasal Cannula 2.00 06/03/20 00:00 37.2 86 18 123/69 (87) 94 Nasal Cannula 2.00 06/02/20 20:05 Room Air 06/02/20 19:00 37.0 77 20 100/64 (76) 90 Room Air 06/02/20 16:00 36.7 72 20 103/60 (74) 95 Room Air 06/02/20 12:45 36.8 77 16 105/64 (78) 91 Room Air 06/02/20 09:00 Room Air 06/02/20 07:26 37.1 67 20 102/55 (71) 91 Room Air I & O 06/03/20 07:00 Intake Total 1138 ml Balance 1138 ml Laboratory Tests Test 06/03/20 05:19 Range/Units Hemoglobin 9.1 L 11.5-16.0 G/DL Hematocrit 29 L 35-52 % RLE--incsion clean and dry. echymosis. No calf tenderness. Neg Mary's. no varus/valgus laxity s/p RTKA doing well DC after PT today ATTILA PEÑA MD Jun 03, 2020 07:08
[2020-06-03 07:49] VITALS: BP 114/72
[2020-06-03] MEDS: ASPIRIN E.C. 81 MG (ECOTRIN) TAB PO SCH (07:49)
[2020-06-03] MEDS: MULTIVIT W/MINERALS TAB (THERAGRAN M) PO SCH (07:49)
[2020-06-03] MEDS: ENOXAPARIN 30 MG/0.3 ML (LOVENOX) SYR SC SCH (07:50)
[2020-06-03] MEDS: SENNA W/DOCUSATE (SENOKOT S) TABLET PO SCH (07:50)
--- NOTE | 2020-06-03 08:00 | NUR ---
morphine CONTINUOUS DRIER OPERATOR DCD at this time. 70ML morphine wasted by this RN with Farzana ESPARZA as witness.
--- NOTE | 2020-06-03 09:15 | Physical Therapy Daily Note ---
PT Daily Note-Current Subjective Patient agrees to PT. Very anxious to return to home. Pain Numeric Pain Scale: 10-Worst Possible Pain Location: Right Location Body Site: Knee Pain Description: Acute Mental Status Patient Orientation: Normal For Age Transfers SCALE: Activities may be completed with or without assistive devices. 5-Hqbsehvabv-gpjlgmp completes the activity by him/herself with no assistance from a helper. 5-Set-up or Clean-up Assistance-helper sets up or cleans up; patient completes activity. [place] assists only prior to or following the activity. 4-Supervision or Touching Assistance-helper provides verbal cues and/or touching/steadying and/or contact guard assistance as patient completes activity. Assistance may be provided throughout the activity or intermittently. 3-Partial/Moderate Assistance-helper does LESS THAN HALF the effort. [place] lifts, holds or supports trunk or limbs, but provides less than half the effort. 2-Substantial/Maximal Assistance-helper does MORE THAN HALF the effort. [place] lifts or holds trunk or limbs and provides more than half the effort. 7-Qbhqfiavx-khhtgy does ALL the effort. Patient does none of the effort to complete the activity. Or, the assistance of 2 or more helpers is required for the patient to complete the activity. If activity was not attempted, code reason: 7-Patient Refused. 9-Not Applicable-not attempted and the patient did not perform the activity before the current illness, exacerbation or injury. 10-Not Attempted due to Environmental Limitations-(lack of equipment, weather restraints, etc.). 88-Not Attempted due to Medical Conditions or Safety Concerns. Roll Left & Right (QC): 6 Lying to Sitting/Side of Bed(Q: 6 Sit to Stand (QC): 6 Chair/Pwo-iv-Asmxj Xfer(QC): 6 Weight Bearing Right Lower Extremity: Right Weight Bearing/Tolerated Gait Training Does the Patient Walk?: Yes Distance: 300' x 2 Walk 10 feet (QC): 6 Walk 50 ft with 2 Turns(QC): 6 Walk 150 ft (QC): 6 Gait Assistive Device: FWW steady, antalgic Stair Training Stair Training: Handrails/: 1 handrail, uses walker #of Steps: 4 1 Step (curb) (QC): 5 4 Steps (QC): 5 Stairs: Pattern: Step to Exercises Supine Ex: Ankle pumps, Quad Set, Heel Slides, Straight leg raise Supine Reps: 10 Seated Therapy Exercises: Long arc quads Seated Reps: 10 Assessment Patient progressing with treatment plan and will dismiss to home with family and home health on this date. PT Middle School Sports Coach Goals Alf Goals PT Middle School Sports Coach Goals Time Frame: Jun 08, 2020 Roll Left & Right (QC): 6 Sit to Lying (QC): 6 Lying-Sitting on Side/Bed(QC): 6 Sit to Stand (QC): 6 Chair/Gzu-ai-Cjzlm Xfer(QC): 6 Walk 10 feet (QC): 6 Walk 50ft with 2 Turns (QC): 6 Walk 150 ft (QC): 6 PT Plan Treatment/Plan Treatment Plan: Discontinue PT, goals met Treatment Plan: Bed Mobility, Education, Functional Activity Michael, Functional Strength, Gait, Safety, Therapeutic Exercise, Transfers Treatment Duration: Jun 08, 2020 Frequency: 11 times per week Estimated Hrs Per Day: .25 hour per day Patient and/or Family Agrees t: Yes Time/GCodes Time In: 814 Time Out: 837 Total Billed Treatment Time: 23 Total Billed Treatment 1 visit EX 10 min FA 13 min JAZ LANZA PT Jun 03, 2020 09:15
--- NOTE | 2020-06-03 09:30 | NUR ---
CM/SS: Visit with pt as to plan for discharge Plan: Pt will return home with [facility] Summary: Pt just finished her shower. She reports that she will now need a walker as using her dads is not the best idea. She would like to cotton picking machine operator the walker at [facility] She is given [facility]'s contact information and their phone number. She is informed that they will contact her and plan to see her on Wednesday 06/06. [facility] is contacted, they are ok for the family to cotton picking machine operator the walker. The information with order is faxed to them. Pt and ISAIAS Otto are informed of the above information.
[2020-06-03] MEDS: oxyCODONE/APAP 5/325MG (PERCOCET 5) TABLET PO PRN (09:38)
[2020-06-03 10:25] VITALS: BP 114/72
== END 2020-06-03 10:00 | disposition home health service (06) | DRG 470 ==
LOC: 4TH 06:15 → SURG 06:16 → 4TH 10:00
PROVIDERS: ADMIT Orthopaedic Surgery; ATTEND Orthopaedic Surgery
PROC: 0SRC0J9 Replacement of Right Knee Joint with Synthetic Substitute, Cemented, Open Approach (ICD-10-PCS; principal; 2020-06-01 07:25)
DX: M17.11 Unilateral primary osteoarthritis, right knee (principal); K21.9 Gastro-esophageal reflux disease without esophagitis; K59.09 Other constipation; F17.210 Nicotine dependence, cigarettes, uncomplicated; J30.2 Other seasonal allergic rhinitis; R11.0 Nausea; F41.9 Anxiety disorder, unspecified; F32.9 Major depressive disorder, single episode, unspecified
CPT/HCPCS: 36415; 73560; 82565; 85014; 85018; 85027; 86850; 86900; 86901; 87081; 94664; 94760

== ENCOUNTER → 2020-06-22 | Outpatient (CLI) | payer BC ==
[~2020-06-22] MED LIST changes: +HYDR-3812 PO; -HYDR-83 PO
--- NOTE | 2020-06-22 12:51 | Diagnostic Imaging Report ---
INDICATION: Abdominal pain and cramping. TIME OF EXAM: 10:41 AM. FINDINGS: Surgical clips in the gallbladder fossa are noted. There is a calcific density overlying the right renal shadow. A renal calculus could not be entirely excluded. No definite calculus along the course of the ureters is seen. The bowel gas pattern is nonobstructed. There is no free air. IMPRESSION: Questionable small right renal calculus. The study is otherwise unremarkable. Dictated by: Dictated on workstation # [id number]
== END ==
LOC: RAD FS 10:35
PROVIDERS: ATTEND Family Medicine
DX: R10.9 Unspecified abdominal pain (principal)
CPT/HCPCS: 74018

== ENCOUNTER → 2020-06-24 | Outpatient (CLI) | payer BC | LOC: LAB FS 15:01 | PROVIDERS: ATTEND Family Medicine | DX: R19.7 Diarrhea, unspecified (principal) | CPT/HCPCS: 87324; 87449; 87493 ==

== ENCOUNTER → 2020-09-12 | Outpatient (CLI) | payer BC ==
[~2020-09-12] MED LIST changes: -ACET-2715 PO; +ACET-3075 PO; +ACHD5005 PO; -HYDR-3812 PO
--- NOTE | 2020-09-12 14:45 | Diagnostic Imaging Report ---
Indication: Right knee pain. Time of exam: 2:17 PM 3 views right knee were obtained. Postoperative changes total knee arthroplasty are noted. Prosthetic elements are good position. No fracture or loosening is seen. No joint effusion is identified. Impression: Postop changes right knee arthroplasty. No acute feature is detected. Dictated by: Dictated on workstation # [id number]
== END ==
LOC: RAD FS 13:57
PROVIDERS: ATTEND Nurse Practitioner
DX: M25.561 Pain in right knee (principal); Z96.651 Presence of right artificial knee joint
CPT/HCPCS: 73562

== ENCOUNTER 2022-03-18 15:47 | Emergency (ER) | payer BC ==
[~2022-03-18] VITALS: Ht 162.5 cm; Wt 89.7 kg
[2022-03-18] MEDS ORDERED: IBUPROFEN 600 MG (MOTRIN) TAB PO ONE (16:00)
[2022-03-18] MEDS ORDERED: LIDOCAINE 1% INJ 20 ML VIAL INJ ONE (16:00)
[2022-03-18] MEDS ORDERED: CEPH500T PO (16:28)
--- NOTE | 2022-03-18 16:28 | ED Upper Extremity ---
General Chief Complaint: Laceration Stated Complaint: RT LITTLE FINGER LAC Source: patient Exam Limitations: no limitations History of Present Illness Date Seen by Provider: March 18, 2022 Time Seen by Provider: 15:51 Initial Comments 56-year-old female with no pertinent past medical history coming in due to a laceration to her right pinky finger. She is right-hand dominant. She was outside pulling weeds when a piece of wood sliced through her right pinky finger on the flexor surface. Occurred around 30 minutes prior to arrival. Has not had any medications as of yet. Last tetanus roughly 8 years ago. She is having mild, throbbing, constant pain that is worse with movement and better with rest. She is otherwise denying any other acute complaints Allergies and Home Medications Allergies Coded Allergies: No Known Drug Allergies (Unverified , 05/25/20) Patient Home Medication List Home Medication List Reviewed: Yes Acetaminophen (Tylenol Extra Strength) 500 Mg Tablet, 1,000 MG PO PRN, (Reported) Entered as Reported by: DIA NEWTON on 05/25/20 1201 Acetaminophen/Diphenhydramine (Tylenol Pm Ex-Strength Caplet) 1 Each Tablet, 1 EACH PO HS, (Reported) Entered as Reported by: DIA NEWTON on 05/25/20 1201 Alprazolam (Xanax) 0.25 Mg Tablet, 0.25 MG PO PRN, (Reported) Entered as Reported by: DIA NEWTON on 05/25/20 1201 Calcium Carb/Magnesium Hydrox (Rolaids Chewable Tablet) 1 Each Tab.chew, 1 EACH PO PRN, (Reported) Entered as Reported by: DIA NEWTON on 05/25/20 1201 Cephalexin (Cephalexin) 500 Mg Tablet, 500 MG PO QID Prescribed by: GIGI WHITE on 03/18/22 1628 Cyanocobalamin (Vitamin B-12) (Vitamin B12) 2,500 Mcg Tablet, 1,000 MCG PO DAILY, (Reported) Entered as Reported by: DIA NEWTON on 05/25/20 1201 Fexofenadine/Pseudoephedrine (Katia-D 12 Hour Tablet) 1 Each Tab.er.12h, 1 EACH PO PRN, (Reported) Entered as Reported by: DIA NEWTON on 05/25/20 1201 Hydrocodone/Acetaminophen (Hydrocodone-Acetamin 5-325 mg) 1 Each Tablet, 1 EACH PO PRN, (Reported) Entered as Reported by: DIA NEWTON on 05/25/20 1201 Review of Systems Constitutional: No chills, No fever EENTM: No blurred vision Respiratory: No cough Cardiovascular: no symptoms reported Gastrointestinal: no symptoms reported Genitourinary: no symptoms reported Musculoskeletal: other (Right little finger laceration) Skin: other (Laceration) Psychiatric/Neurological: No Symptoms Reported All Other Systems Reviewed Negative Unless Noted: Yes Past Kijfvqf-Stdsnw-Epckgb Hx Patient Social History Tobacco Use?: Yes Tobacco type used: Cigarettes Substance use?: No Alcohol Use?: No Pt feels they are or have been: No Immunizations Up To Date First/Initial COVID19 Vaccinat: Yes Second COVID19 Vaccination Sea: Yes 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: [employer] Seasonal Allergies Seasonal Allergies: Yes Past Medical History Surgery/Hospitalization HX: Tubal; cholecysectomy; Arthroscopy; Depression; Anxiety Surgeries: Yes (LASIK, BREAST REDUCTION, FOOT) Respiratory: Yes Sleep Apnea Currently Using CPAP: Yes Currently Using BIPAP: No Cardiac: No Neurological: No Sexually Transmitted Disease: No HIV/AIDS: No Genitourinary: No Gastrointestinal: Yes Colitis, Gastroesophageal Reflux, Chronic Constipation Musculoskeletal: Yes Arthritis Endocrine: No HEENT: Yes (READING GLASSES) Loss of Vision: Left Hearing Impairment: Denies Cancer: No Psychosocial: Yes Anxiety, Depression Integumentary: No Blood Disorders: No Adverse Reaction/Blood Tranf: No (N/A) Family Medical History No Pertinent Family Hx Physical Exam Vital Signs Vital Signs - First Documented 03/18/22 15:53 Temp 37.0 Pulse 100 Resp 14 B/P (MAP) 139/79 (99) Pulse Ox 95 O2 Delivery Room Air Capillary Refill : Height, Weight, BMI Height: '" Weight: lbs. oz. kg; 32.35 BMI Method: General Appearance: WD/WN, no apparent distress HEENT: PERRL/EOMI, normal ENT inspection, pharynx normal Neck: non-tender, full range of motion, supple, normal inspection Cardiovascular: regular rate, rhythm, no edema, no murmur Respiratory: chest non-tender, lungs clear, normal breath sounds, no respiratory distress, no accessory muscle use Gastrointestinal: normal bowel sounds, non tender, soft; No distended, No guarding, No rebound Back: normal inspection, no CVA tenderness, no vertebral tenderness Shoulder: normal inspection, non-tender, no evidence of injury, normal ROM Elbow/Forearm: normal inspection, non-tender, no evidence of injury, normal ROM Wrist: Yes normal inspection, Yes non-tender, Yes no evidence of injury, Yes normal ROM Hand: normal ROM, laceration (2 and half centimeter laceration to the palmar surface of the right pinky finger just proximal to the PIP joint, 5 out of 5 strength with flexion of the pinky finger, she lacks sensation on the ulnar aspect), soft tissue tenderness Neurologic/Tendon: normal motor functions Neurologic/Psychiatric: alert, normal mood/affect, sensory deficit (Distal to the injury in the right pinky finger she has a sensory deficit on the ulnar aspect, otherwise motor intact) Skin: normal color, warm/dry Lymphatic: no adenopathy Procedures/Interventions Wound Location: Upper Extremities Other Wound Location palmar surface of the right pinky finger Wound Length (cm): 2.5 Wound's Depth, Shape: superficial (2mm in depth, no muscle or tendon seen) Wound Explored: clean Irrigated w/ Saline (ccs): 500 Anesthesia: 1% Lidocaine (digital block performed) Volume Anesthetic (ccs): 3 Suture: Ethlion Suture Size: 5-0 Number of Sutures: 7 Progress Patient tolerated the procedure well with no difficulty. Sterile dressing applied afterwards with antibiotic ointment Progress/Results/Core Measures Results/Orders My Orders Orders - GIGI WHITE MD Finger(S) (03/18/22 15:57) Ibuprofen Tablet (Motrin Tablet) (03/18/22 16:00) Lidocaine 1% Inj 20 Ml (Xylocaine 1% Inj (03/18/22 16:00) Medications Given in ED Current Medications Medications Dose Ordered Sig/Yesy Route Start Time Stop Time Status Last Admin Dose Admin Lidocaine HCl 20 ml ONCE ONCE INJ 03/18/22 16:00 03/18/22 16:01 DC 03/18/22 16:10 20 ML Vital Signs/I&O 03/18/22 15:53 Temp 37.0 Pulse 100 Resp 14 B/P (MAP) 139/79 (99) Pulse Ox 95 O2 Delivery Room Air Progress Progress Note : Progress Note 56-year-old female with above history coming in due to a laceration in her right pinky finger. ABCs were intact and vitals were stable on presentation. Given i ts a dirty wound we updated her tetanus today. The wound was cleaned, digital block performed, and it was closed after x-ray showing no fracture on my interpretation. I will have her follow-up with a hand specialist given the sensation deficit. She was then discharged home in stable condition with strict return precautions Departure Impression Primary Impression: Finger laceration Qualified Codes: S61.216A - Laceration without foreign body of right little finger without damage to nail, initial encounter Disposition: HOME, SELF-CARE Condition: Stable Departure-Patient Inst. Referrals: CECIL SHEETS MD (PCP) Primary Care Physician JUANCARLOS WHITE Patient Instructions: Laceration Repair With Stitches ED Add. Discharge Instructions: I want you to follow-up with an orthopedic surgeon. You can follow-up with anyone you would prefer or you can follow-up with Noble White here in town. The stitches need to come out in 7 days. Take ibuprofen and/or Tylenol as needed for pain. Do not let the wound get wet at all least for the next 5 days. Take antibiotics for the next week. Scripts Cephalexin (Cephalexin) 500 Mg Tablet 500 MG PO QID for 7 Days, #28 TAB Prov: GIGI WHITE MD 03/18/22 Work/School Note: Work Release Form Date Seen in the Emergency Department: March 18, 2022 Return to Work: March 19, 2022 Restrictions: Need Release from Doctor Other Restrictions Listed Below: not allowed to get right hand dirty GIGI WHITE MD March 18, 2022 16:28
--- NOTE | 2022-03-18 16:53 | Diagnostic Imaging Report ---
HISTORY: Laceration of the right 5th finger. TECHNIQUE: Frontal view of the right hand, including the 5th finger, oblique and lateral views of the right 5th finger. COMPARISON: None. FINDINGS: No acute fracture or dislocation is seen in the hand or right 5th finger. Alignment appears normal. Joint spaces are preserved. There is a dressing overlying the right 5th finger. No radiopaque foreign body is seen. There are degenerative changes of the basal joints of the thumb. IMPRESSION: No acute osseous abnormality or radiopaque foreign body is seen in the right 5th finger. Dictated by: Dictated on workstation # [id number]
[2022-03-18] MEDS ORDERED: TETANUS,DIPTH,PERTUSS P/F (BOOSTRIX) 0.5 ML VIAL IM ONE (17:15)
[2022-03-18 17:47] VITALS: BP 139/79
== END 2022-03-18 17:47 | disposition home or self-care (01) ==
LOC: EDUNIT# 15:47 → ER FS 15:49
DX: S61.216A Laceration without foreign body of right little finger without damage to nail, initial encounter (principal); W45.8XXA Other foreign body or object entering through skin, initial encounter
CPT/HCPCS: 73140; 90715

== ENCOUNTER → 2023-09-24 | Outpatient (CLI) | payer BC ==
[~2023-09-24] MED LIST changes: +CEPH500T PO
--- NOTE | 2023-09-24 17:38 | Diagnostic Imaging Report ---
INDICATION: Right foot pain AP, oblique, and lateral views of the right foot are obtained No fracture or acute bony abnormality is seen. Joint spaces are unremarkable. There is mild plantar calcaneal spurring. IMPRESSION: Mild plantar calcaneal spurring. No acute fracture or dislocation. Dictated by: Dictated on workstation # [id number]
== END ==
LOC: RAD FS 10:50
PROVIDERS: ATTEND Family Medicine
DX: M77.31 Calcaneal spur, right foot (principal); J30.2 Other seasonal allergic rhinitis; R05.9 Cough, unspecified
CPT/HCPCS: 73630